=== PATIENT | female | born 1960 | race Caucasian/White ===

== ENCOUNTER 2016-08-31 14:42 | Emergency (ER) | payer BC ==
[~2016-08-31] VITALS: Ht 162.6 cm; Wt 74.2 kg
[~2016-08-31 14:42] MED LIST: ALBU1AER9 INH; CALCTAB5 PO; CPR500 PO; CYAN1DRO IM; CYT100 PO; MULT1PAK42 PO; PANT40TA PO; SUCR1TAB29 PO
[2016-08-31 14:56] VITALS: TEMP 37; Ht 162.6 cm; Wt 74.2 kg
[2016-08-31] MEDS ORDERED: MoRPHine SULFATE 4 MG/ML 1 ML CARP\\VIAL IV STA ×2 (16:05→18:33)
[2016-08-31] MEDS ORDERED: SODIUM CHLORIDE 0.9% 1000ML 1,000 ML IV STA (16:05)
[2016-08-31] MEDS ORDERED: ONDANSETRON INJ 2 MG/ML 2 ML VIAL IV STA (16:05)
[2016-08-31] MEDS ORDERED: CYAN100074 IM (16:31)
[2016-08-31 16:49] LABS: BASO % 0.3 %; BASO ABS # 0.02 K/uL (0-0.2); COMPLETE YES; EOS % 1.3 %; HEMATOCRIT 40.1 % (37-47); LYMPH % 21.2 %; LYMPH ABS # 1.29 K/uL (1.2-3.4); MEAN CORPUSCULAR HEMOGLOBIN 32.5 pg (25-34); MEAN CORPUSCULAR HGB CONC 34.9 g/dl (32-36); MEAN PLATELET VOLUME 10.3 fL (7.4-10.4); MONO % 8.2 %; PLATELET COUNT 194 K/uL (130-400); RED BLOOD COUNT 4.31 M/uL (4.2-5.4); WHITE BLOOD COUNT 6.08 K/uL (4.8-10.8)
[2016-08-31 16:51] LABS: URINE APPEARANCE CLEAR (CLEAR); URINE BILIRUBIN NEG (NEG); URINE COLOR YELLOW; URINE NITRITE NEG (NEG); URINE PH 6.5 (4.5-7.5); UROBILINOGEN NEG (NEG)
[2016-08-31 16:52] LABS: MANUAL MICROSCOPIC REQUIRED? NO; REVIEW REQ? NO
[2016-08-31 17:07] LABS: BUN/CREATININE RATIO 28.7 (10-20); CALCIUM 9.3 mg/dl (8.5-10.1); CREATININE 0.77 mg/dl (0.60-1.20); POTASSIUM 4.2 mmol/L (3.5-5.1)
--- NOTE | 2016-08-31 17:58 | DIAGNOSTIC IMAGING REPORT ---
CHEST AND ABDOMEN 2 VIEWS HISTORY: Generalized abdominal pain. Cough. COMPARISON: Chest and abdominal series 03/23/2016. FINDINGS: Questionable densities within the right midlung zone and bilateral lung bases is likely due to overlapping soft tissue. Otherwise, the lungs are clear. The heart is normal in size. Emphysema. No pleural effusions. No pneumothorax. Evidence for prior gastric bypass. No renal calculi. Moderate well-formed stool within the colon and rectum. No dilated loops of small bowel to suggest an obstruction. No pneumoperitoneum. No pneumatosis. IMPRESSION: 1. No acute process within the chest. 2. Moderate well-formed stool seen within the colon. 3. No evidence for bowel obstruction. Electronically signed by: Luis Stearns M.D. 08/31/2016 5:56 PM Dictated Date/Time: 08/31/2016 5:54 PM
--- NOTE | 2016-08-31 18:02 | DIAGNOSTIC IMAGING REPORT ---
ABDOMINAL ULTRASOUND, RIGHT UPPER QUADRANT HISTORY: Generalized abdominal pain.. COMPARISON: Abdominal ultrasound 03/23/2016. FINDINGS: Pancreas: The pancreas demonstrates a normal echotexture. Liver: Unremarkable. Gallbladder: No gallbladder wall thickening. No gallstones. CBD: Measures between 6 and 7 mm. Right kidney: No hydronephrosis. IMPRESSION: 1. Normal gallbladder. No gallstones. 2. Borderline distended common bile duct measuring between 6 and 7 mm. Recommend correlate with LFTs. Electronically signed by: Luis Stearns M.D. 08/31/2016 6:00 PM Dictated Date/Time: 08/31/2016 5:57 PM
[2016-08-31] MEDS ORDERED: DICYCLOMINE HCL 10 MG/ML 2 ML AMP IM ONE (18:45)
[2016-08-31] MEDS ORDERED: OPTIRAY 320 IV PRN (18:45)
--- NOTE | 2016-08-31 19:31 | DIAGNOSTIC IMAGING REPORT ---
ABDOMEN AND PELVIS CT WITH IV CONTRAST CT DOSE: 533.29 mGycm HISTORY: Generalized abdominal pain. TECHNIQUE: Multiaxial CT images of the abdomen and pelvis were performed following the use of intravenous contrast. COMPARISON STUDY: Abdomen and pelvis CT 09/12/2015. FINDINGS: The lung bases are clear. No pneumoperitoneum. No pneumatosis. There are few scattered subcentimeter hypodense lesions within the liver. The largest in the left hepatic lobe measures 5 mm. These are too small to characterize but likely represent benign lesions given the stability. Normal caliber common bile duct measuring 6 mm. The gallbladder, right adrenal gland, pancreas, and kidneys are unremarkable. No hydronephrosis. Stable 9 mm lesion within the spleen. This is also too small to characterize but is likely benign. No change in the 2.8 cm heterogeneous left adrenal gland nodule. No retroperitoneal lymphadenopathy. The bladder remains mildly distended. Trace pelvic free fluid. Prior hysterectomy. A few colonic diverticula. Moderate stool throughout the colon. No bowel wall thickening or obstruction. Prior gastric bypass. Normal appendix. IMPRESSION: 1. No definite bowel wall thickening or obstruction. 2. Normal appendix. 3. Colonic diverticulosis. 4. Normal caliber common bile duct measures 6 mm. 5. Stable 2.8 cm left adrenal gland nodule. 6. Prior gastric bypass. Electronically signed by: Luis Stearns M.D. 08/31/2016 7:29 PM Dictated Date/Time: 08/31/2016 7:20 PM
[2016-08-31] MEDS ORDERED: OXYC1TAB3 PO (19:40)
[2016-08-31] MEDS ORDERED: DICY20TA35 PO (19:40)
--- NOTE | 2016-08-31 19:56 | EMERGENCY ROOM VISIT NOTE ---
History First contact with patient: 16:00 Chief Complaint: ABDOMINAL PAIN Stated Complaint: ABD PAIN Nursing Triage Summary: Pt c/o mid upper and lower abd pain, denies n/v/d. Pt associated "floaters" in right eye since yesterday morning. Diarrhea yesterday or the day before. History of Present Illness The patient is a 56 year old female who presents to the Emergency Room with complaints of abdominal pain and sensation of "trapped air". The patient reports that her symptoms started this morning upon awakening, and has progressively worsened throughout the day. She has had no nausea or vomiting, fever or chills, chest pain, shortness of breath or constipation. The patient reports that she did have some diarrhea 2 days ago after eating a chipotle, but had no belly pain at that time. She has had a productive cough, which the patient reports is not unusual given her "history of prior tobacco abuse". The patient reports mild discomfort radiating into the back this afternoon. Walking and deep breathing worsens her abdominal pain. The patient reports that she was admitted last summer for pancreatitis, and had an ultrasound showing a dysfunctional gallbladder. 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 The patient also reports that she has floaters in her right eye since yesterday morning. She denies any blurred vision or headache. She has had floaters in the past. She currently rates her discomfort a 7 out of 10. Review of Systems HEENT: Denies dizziness, hearing loss, tinnitus. Denies difficulty swallowing or oral lesions. PULMONARY: Reports mild productive cough, but denies shortness of breath or hemoptysis. CARDIOVASCULAR: Denies chest pain, palpitations, dyspnea on exertion, orthopnea or peripheral edema. GASTROINTESTINAL: Denies diarrhea, constipation, nausea or vomiting, otherwise see history of present illness. GENITOURINARY: Denies dysuria, frequency, urgency or nocturia. NEUROLOGIC: Denies history of epilepsy, CVA, TIA or chronic headaches. MUSCULOSKELETAL: Denies history of joint tenderness/swelling. SKIN: Denies rashes or lesions. PSYCHIATRIC: Denies history of depression or mental illness. ENDOCRINE: Denies history of diabetes or thyroid disorders. Past Medical/Surgical History Medical Problems: (1) History of - hysterectomy (2) Pancreatitis (3) UTI (urinary tract infection) Family History Hypertension Social History Smoking Status: Former Smoker Alcohol Use: none Drug Use: none Marital Status: single Housing Status: lives alone Occupation Status: employed Current/Historical Medications Scheduled Calcium (Caltrate), 1,200 MG PO QAM Cyanocobalamin (Cyanocobalamin), 1,000 MCG IM MONTHLY Dicyclomine Hcl (Bentyl), 1 TAB PO TID Pediatric Multiple Vitamin W/ (Flintstones Chewable), 2 TABS PO QPM Scheduled PRN Albuterol (Proair Hfa), 1-2 PUFFS INH QID PRN for Shortness of Breath Oxycodone Ir (Roxicodone Ir), 1-2 TAB PO Q4H PRN for Pain Tramadol (Ultram), 50-100 MG PO BID PRN for Pain Allergies Coded Allergies: Gabapentin (Verified Allergy, Unknown, VISUAL DISTURBANCES, 03/23/16) Adhesives (Verified Adverse Reaction, Unknown, RASH, 03/23/16) Physical Exam Vital Signs Date Time Temp Pulse Resp B/P Pulse Ox O2 Delivery O2 Flow Rate FiO2 08/31/16 19:16 74 16 126/74 96 08/31/16 18:30 74 16 124/80 97 08/31/16 16:46 48 08/31/16 14:56 37.0 58 17 98 Room Air Physical Exam CONSTITUTIONAL: Healthy and well nourished. Alert and oriented X 3 with positive affect. Patient does not appear in any acute distress. HEENT: Normocephalic, atraumatic. Pupils equal, round and reactive. No scleral icterus or conjunctival injection. EOMs intact without discomfort. Ears and nares are clear. NECK: Full active range of motion without discomfort. No JVD or carotid bruits. RESPIRATORY: Clear to auscultation bilaterally with no wheezing, crackles, rhonchi or stridor. CARDIOVASCULAR: Regular rate and rhythm with no murmurs, rubs or gallops. GASTROINTESTINAL: Bowel sounds present in all quadrants. Patient has mild diffuse abdominal tenderness to palpation without rigidity, guarding or rebound. Negative White sign. Negative CVA tenderness. Negative McBurney's point tenderness. No rigidity, guarding or rebound. MUSCULOSKELETAL: Full range of motion of all joints without discomfort. INTEGUMENTARY: No rash or other significant dermatologic conditions noted. NEUROLOGIC: No focal neurologic deficits noted. Medical Decision & Procedures ER Provider Diagnostic Interpretation: My interpretation of an ECG shows a sinus bradycardia of [address] elevation or other conduction abnormalities. The patient reports a normally low resting heart rate. My interpretation of an abdomen obstruction series with PA chest does not show any obstructive pattern or free air. Moderate stool load is noted. Radiologist report is as follows: CHEST AND ABDOMEN 2 VIEWS HISTORY: Generalized abdominal pain. Cough. COMPARISON: Chest and abdominal series 03/23/2016. FINDINGS: Questionable densities within the right midlung zone and bilateral lung bases is likely due to overlapping soft tissue. Otherwise, the lungs are clear. The heart is normal in size. Emphysema. No pleural effusions. No pneumothorax. Evidence for prior gastric bypass. No renal calculi. Moderate well-formed stool within the colon and rectum. No dilated loops of small bowel to suggest an obstruction. No pneumoperitoneum. No pneumatosis. IMPRESSION: 1. No acute process within the chest. 2. Moderate well-formed stool seen within the colon. 3. No evidence for bowel obstruction. Abdominal ultrasound does not show any gallstones, evidence for pancreatitis or other acute findings. ABDOMINAL ULTRASOUND, RIGHT UPPER QUADRANT HISTORY: Generalized abdominal pain.. COMPARISON: Abdominal ultrasound 03/23/2016. FINDINGS: Pancreas: The pancreas demonstrates a normal echotexture. Liver: Unremarkable. Gallbladder: No gallbladder wall thickening. No gallstones. CBD: Measures between 6 and 7 mm. Right kidney: No hydronephrosis. IMPRESSION: 1. Normal gallbladder. No gallstones. 2. Borderline distended common bile duct measuring between 6 and 7 mm. Recommend correlate with LFTs. CT of the abdomen and pelvis with IV contrast was also normal with the following incidental findings: ABDOMEN AND PELVIS CT WITH IV CONTRAST CT DOSE: 533.29 mGycm HISTORY: Generalized abdominal pain. TECHNIQUE: Multiaxial CT images of the abdomen and pelvis were performed following the use of intravenous contrast. COMPARISON STUDY: Abdomen and pelvis CT 09/12/2015. FINDINGS: The lung bases are clear. No pneumoperitoneum. No pneumatosis. There are few scattered subcentimeter hypodense lesions within the liver. The largest in the left hepatic lobe measures 5 mm. These are too small to characterize but likely represent benign lesions given the stability. Normal caliber common bile duct measuring 6 mm. The gallbladder, right adrenal gland, pancreas, and kidneys are unremarkable. No hydronephrosis. Stable 9 mm lesion within the spleen. This is also too small to characterize but is likely benign. No change in the 2.8 cm heterogeneous left adrenal gland nodule. No retroperitoneal lymphadenopathy. The bladder remains mildly distended. Trace pelvic free fluid. Prior hysterectomy. A few colonic diverticula. Moderate stool throughout the colon. No bowel wall thickening or obstruction. Prior gastric bypass. Normal appendix. IMPRESSION: 1. No definite bowel wall thickening or obstruction. 2. Normal appendix. 3. Colonic diverticulosis. 4. Normal caliber common bile duct measures 6 mm. 5. Stable 2.8 cm left adrenal gland nodule. 6. Prior gastric bypass. Laboratory Results 08/31/16 16:20 Red Blood Count 4.31, Mean Corpuscular Volume 93.0, Mean Corpuscular Hemoglobin 32.5, Mean Corpuscular Hemoglobin Concent 34.9, Mean Platelet Volume 10.3, Neutrophils (%) (Auto) 69.0, Lymphocytes (%) (Auto) 21.2, Monocytes (%) (Auto) 8.2, Eosinophils (%) (Auto) 1.3, Basophils (%) (Auto) 0.3, Neutrophils # (Auto) 4.19, Lymphocytes # (Auto) 1.29, Monocytes # (Auto) 0.50, Eosinophils # (Auto) 0.08, Basophils # (Auto) 0.02 08/31/16 16:20 Test 08/31/16 16:20 White Blood Count 6.08 K/uL (4.8-10.8) Red Blood Count 4.31 M/uL (4.2-5.4) Hemoglobin 14.0 g/dL (12.0-16.0) Hematocrit 40.1 % (37-47) Mean Corpuscular Volume 93.0 fL (80-100) Mean Corpuscular Hemoglobin 32.5 pg (25-34) Mean Corpuscular Hemoglobin Concent 34.9 g/dl (32-36) Platelet Count 194 K/uL (130-400) Mean Platelet Volume 10.3 fL (7.4-10.4) Neutrophils (%) (Auto) 69.0 % Lymphocytes (%) (Auto) 21.2 % Monocytes (%) (Auto) 8.2 % Eosinophils (%) (Auto) 1.3 % Basophils (%) (Auto) 0.3 % Neutrophils # (Auto) 4.19 K/uL (1.4-6.5) Lymphocytes # (Auto) 1.29 K/uL (1.2-3.4) Monocytes # (Auto) 0.50 K/uL (0.11-0.59) Eosinophils # (Auto) 0.08 K/uL (0-0.5) Basophils # (Auto) 0.02 K/uL (0-0.2) RDW Standard Deviation 43.3 fL (36.4-46.3) RDW Coefficient of Variation 12.7 % (11.5-14.5) Immature Granulocyte % (Auto) 0.0 % Immature Granulocyte # (Auto) 0.00 K/uL (0.00-0.02) Urine Color YELLOW Urine Appearance CLEAR (CLEAR) Urine pH 6.5 (4.5-7.5) Urine Specific [place] 1.010 (1.000-1.030) Urine Protein NEG (NEG) Urine Glucose (UA) NEG (NEG) Urine Ketones NEG (NEG) Urine Occult Blood NEG (NEG) Urine Nitrite NEG (NEG) Urine Bilirubin NEG (NEG) Urine Urobilinogen NEG (NEG) Urine Leukocyte Esterase NEG (NEG) Anion Gap 9.0 mmol/L (3-11) Est Creatinine Clear Calc Drug Dose 80.5 ml/min Estimated GFR () 100.0 Estimated GFR (Non- 86.3 BUN/Creatinine Ratio 28.7 (10-20) Calcium Level 9.3 mg/dl (8.5-10.1) Total Bilirubin 0.5 mg/dl (0.2-1) Direct Bilirubin 0.2 mg/dl (0-0.2) Aspartate Amino Transf (AST/SGOT) 25 U/L (15-37) Alanine Aminotransferase (ALT/SGPT) 33 U/L (12-78) Alkaline Phosphatase 100 U/L (45-117) Total Creatine Kinase 54 U/L (26-192) Total Protein 7.0 gm/dl (6.4-8.2) Albumin 3.9 gm/dl (3.4-5.0) Amylase Level 57 U/L (25-115) Lipase 85 U/L (73-393) Medications Administered Medications (Trade) Dose Ordered Sig/Samira Route Start Time Stop Time Status Last Admin Dose Admin Sodium Chloride (Nss 1000ml) 1,000 ml @ 999 mls/hr Q1H1M STAT IV 08/31/16 16:05 08/31/16 17:05 DC 08/31/16 16:39 999 MLS/HR Morphine Sulfate (MoRPHine SULFATE INJ) 4 mg NOW STAT IV 08/31/16 16:05 08/31/16 16:20 DC 08/31/16 16:40 4 MG Ondansetron HCl (Zofran Inj) 4 mg NOW STAT IV 08/31/16 16:05 08/31/16 16:20 DC 08/31/16 16:39 4 MG Morphine Sulfate (MoRPHine SULFATE INJ) 4 mg NOW STAT IV 08/31/16 18:33 08/31/16 18:34 DC 08/31/16 18:50 4 MG Dicyclomine HCl (Bentyl Inj) 20 mg NOW ONCE IM 08/31/16 18:45 08/31/16 18:46 DC 08/31/16 18:50 20 MG Procedure 1. IV hydration: The patient received a liter normal saline bolus 2. IV medications: Morphine 4 mg and Zofran 4 mg IVP. She received an additional morphine 4 mg IVP and Bentyl 20 mg IM. ED Course Patient history and physical exam were performed. Nurse's notes were reviewed. Vital signs were reviewed and were normal. IV access was established, and labs were drawn. The patient was hydrated with normal saline, and received IV medications as discussed in the previous Procedure section. Review of labs does not show any acute findings. ECG was normal. Abdomen obstruction series with PA chest was normal. Abdominal ultrasound was also normal without any acute findings. The patient was still having notable discomfort, and was administered additional IV morphine and IM Bentyl. At this point, the case was further discussed with Dr. Burns, ED attending physician, who suggested performing a CT to rule out other acute findings. The patient has had a prior history of gastric bypass, and reports that she does not tolerate oral prep well. At this point, a CT of the abdomen and pelvis with IV contrast was performed, again with no significant findings except as discussed in the previous Diagnostic Interpretation section. The patient reports feeling well enough to go home at this point. The patient was instructed on a clear liquid diet bowel rest for now. She was encouraged to try Dulcolax, MiraLAX or magnesium citrate for possible constipation. She was instructed to follow-up with her PCP in the next 2-3 days for reevaluation. Return to the emergency department for any progressively worsening symptoms. The patient was provided prescriptions for OxyIR and Bentyl as well. The patient was encouraged to minimize OxyIR use as this may constipate her even more. The patient was happy with plan of care, voiced understanding of all discharge instructions, and rated her discomfort a 3 out of 10. Medical Decision Patient presents to the emergency room with generalized abdominal cramping sensation since awakening this morning. Her workup today is not suggestive of pancreatitis, cholecystitis, hepatitis, bowel obstruction, appendicitis, diverticulitis, pyelonephritis, TIA or diverticulitis. The patient is afebrile and has no leukocytosis. She does have moderate stool on imaging studies. I do not suspect complications with her gastric bypass. She does not have any peritoneal signs. Impression Primary Impression: Abdominal pain Departure Information Prescriptions Dicyclomine Hcl (BENTYL) 20 Mg Tab 1 TAB PO TID for 30 Days, #90 TAB Prov: Ulises Gallagher PA 08/31/16 Oxycodone Ir (Roxicodone Ir) 5 Mg Tab 1-2 TAB PO Q4H Y for Pain, #15 TAB For Initial Treatment Prov: Ulises Gallagher PA 08/31/16 Referrals RV. Grullon MD (PCP) Patient Instructions A Signature Page
[2016-08-31 20:14] VITALS: BP 98/65; PULSE 56; O2SAT 95
[2017-04-13] MEDS ORDERED: PEDICHW50 PO (00:38)
== END 2016-08-31 20:16 | disposition home or self-care (01) ==
LOC: C.EDB 14:43
DX: R10.9 Unspecified abdominal pain (principal); Z82.49 Family history of ischemic heart disease and other diseases of the circulatory system; Z87.891 Personal history of nicotine dependence; Z79.899 Other long term (current) drug therapy

== ENCOUNTER → 2016-12-07 | Outpatient (CLI) | payer BC ==
[~2016-12-07] MED LIST changes: +CALC600T PO; +CEPH500C PO; -CPR500 PO; -CYAN1DRO IM; +CYNI1000 IM; -CYT100 PO; -MULT1PAK42 PO; +OXYC1TAB3 PO; -PANT40TA PO; +PEDICHW50 PO; +POLY335019 PO; +PRED10TA PO; -SUCR1TAB29 PO; +TRAM-10 PO; +VNTHFA/IN INH
--- NOTE | 2016-12-07 15:07 | DIAGNOSTIC IMAGING REPORT ---
RIBS UNILATERAL WITH PA CHEST CLINICAL HISTORY: RIB PAIN ON LEFT SIDE COMPARISON STUDY: Chest 08/31/2016. FINDINGS: No rib fractures. No pneumothorax. The lungs are clear. The heart is normal in size. No pleural effusions. IMPRESSION: No rib fractures. No pneumothorax. Electronically signed by: Luis Stearns M.D. 12/07/2016 3:05 PM Dictated Date/Time: 12/07/2016 3:01 PM
== END | disposition home or self-care (01) ==
LOC: C.RAD1850 14:36
PROVIDERS: ATTEND Internal Medicine
DX: R07.81 Pleurodynia (principal)

== ENCOUNTER 2016-12-23 14:20 | Emergency (ER) | payer BC ==
[~2016-12-23] VITALS: Ht 162.6 cm; Wt 74.8 kg
[~2016-12-23 14:20] MED LIST changes: -CALC600T PO; -CEPH500C PO; -CYNI1000 IM; -PEDICHW50 PO; -POLY335019 PO; -PRED10TA PO; -TRAM-10 PO; -VNTHFA/IN INH
[2016-12-23 14:27] VITALS: TEMP 36.6; Ht 162.6 cm; Wt 74.8 kg
[2016-12-23] MEDS ORDERED: PRED10TA PO (14:43)
[2016-12-23] MEDS ORDERED: ONDANSETRON INJ 2 MG/ML 2 ML VIAL IV STA (14:57)
[2016-12-23] MEDS ORDERED: SODIUM CHLORIDE 0.9% 1000ML 1,000 ML IV STA (14:57)
[2016-12-23] MEDS ORDERED: MoRPHine SULFATE 4 MG/ML 1 ML CARP\\VIAL IV PRN (15:00)
--- NOTE | 2016-12-23 15:02 | EMERGENCY ROOM VISIT NOTE ---
History Report prepared by Latesha: Sidra Trevino Under the Supervision of: Dr. Constantino Mejia D.O. First contact with patient: 14:34 Chief Complaint: ABDOMINAL PAIN Stated Complaint: STOMACH PAINS Nursing Triage Summary: Pt reports mid abdominal pain sinc 1100. Hx of constipation, gall stones History of Present Illness The patient is a 56 year old female who presents to the Emergency Room with complaints of persistent mid-abdominal pain that started around 1100 today. She rates her discomfort as a 7/10 and describes it as feeling like "sharp gas pains ". Food does not seem to worsen her pain. She tried going to work today, but had to leave to come to the ED when her pain worsened. She reports she has been to the ED previously for similar pain and states the last time she was here she was found to have a "blockage". She notes she is still passing stool normally and had a normal bowel movement here in the ED. The patient denies any recent nausea, vomiting or diarrhea. She denies any recent urinary symptoms. She denies any recent rectal bleeding, melena or hematochezia. Source of History: patient Onset: 1100 today Position: abdomen Symptom Intensity: 7/10 Quality: sharp ("sharp gas pains") Associated Symptoms: No diarrhea, No hematochezia, No melena, No nausea, No urinary symptoms, No vomiting Review of Systems See HPI for pertinent positives & negatives. A total of 10 systems reviewed and were otherwise negative. Past Medical & Surgical Medical Problems: (1) History of - hysterectomy (2) Pancreatitis (3) UTI (urinary tract infection) Family History Hypertension Social History Smoking Status: Never Smoker Alcohol Use: none Drug Use: none Marital Status: Housing Status: lives alone Occupation Status: employed Current/Historical Medications Scheduled Albuterol Hfa (Ventolin Hfa), 1-2 PUFFS INH QID Calcium Carbonate (Calcium 600), 1,200 MG PO DAILY Cyanocobalamin (Cyanocobalamin), 1,000 MCG IM MONTHLY Pediatric Multiple Vitamin W/ (Flintstones Chewable), 2 TABS PO QPM Polyethylene Glycol 3350 (Miralax), 17 GM PO DAILY Prednisone Tab (Prednisone), 10 MG PO DAILY Scheduled PRN Tramadol (Ultram), 50-100 MG PO BID PRN for Pain Tramadol (Ultram), 1-2 TABS PO Q8 PRN for Pain Allergies Coded Allergies: Gabapentin (Verified Allergy, Unknown, VISUAL DISTURBANCES, 12/23/16) Adhesives (Verified Adverse Reaction, Unknown, RASH, 12/23/16) Physical Exam Vital Signs Date Time Temp Pulse Resp B/P Pulse Ox O2 Delivery O2 Flow Rate FiO2 12/23/16 17:55 61 16 105/81 96 12/23/16 16:39 57 18 111/61 97 Room Air 12/23/16 15:29 58 16 145/77 98 Room Air 12/23/16 15:26 57 12/23/16 14:27 36.6 59 18 166/82 96 Room Air Physical Exam GENERAL: Patient is awake, alert, somewhat anxious and uncomfortable appearing. EYES: The conjunctivae are clear. The pupils are round and reactive. EARS, NOSE, MOUTH AND THROAT: The nose is without any evidence of any deformity. Mucous membranes are moist tongue is midline NECK: The neck is nontender and supple. RESPIRATORY: Normal respiratory effort is noted there is no evidence of wheezing rhonchi or rales CARDIOVASCULAR: Regular rate and rhythm noted there no murmurs rubs or gallops normal S1 normal S2 GASTROINTESTINAL: The abdomen is mildly distended but soft. Diffuse tenderness to palpation, but no guarding or rigidity was appreciated. BACK: No midline tenderness or or step-off noted range of motion in flexion extension as well as rotation no signs of muscle spasm noted MUSCULOSKELETAL/EXTREMITIES: There is no evidence of gross deformity full range of motion is noted in the hips and shoulders SKIN: There is no obvious evidence of any rash. There are no petechiae, pallor or cyanosis noted. NEUROLOGIC: Patient is awake alert and oriented x3 strength is symmetric patellar reflexes are 2+ bilaterally Medical Decision & Procedures ER Provider Diagnostic Interpretation: This X-Ray was reviewed and interpreted by myself and the radiologist. PA CHEST WITH ABDOMINAL SERIES IMPRESSION: 1. Emphysema with no acute cardiopulmonary abnormality. 2. Nonobstructed abdominal bowel gas pattern noting moderate constipation. Electronically signed by: Igor Booker M.D. 12/23/2016 4:16 PM Laboratory Results 12/23/16 15:15 Red Blood Count 4.19, Mean Corpuscular Volume 95.7, Mean Corpuscular Hemoglobin 32.0, Mean Corpuscular Hemoglobin Concent 33.4, Mean Platelet Volume 10.0, Neutrophils (%) (Auto) 87.1, Lymphocytes (%) (Auto) 8.5, Monocytes (%) (Auto) 3.5, Eosinophils (%) (Auto) 0.7, Basophils (%) (Auto) 0.1, Neutrophils # (Auto) 6.26, Lymphocytes # (Auto) 0.61, Monocytes # (Auto) 0.25, Eosinophils # (Auto) 0.05, Basophils # (Auto) 0.01 12/23/16 15:15 Test 12/23/16 15:15 12/23/16 15:21 12/23/16 15:30 White Blood Count 7.19 K/uL (4.8-10.8) Red Blood Count 4.19 M/uL (4.2-5.4) Hemoglobin 13.4 g/dL (12.0-16.0) Hematocrit 40.1 % (37-47) Mean Corpuscular Volume 95.7 fL (80-100) Mean Corpuscular Hemoglobin 32.0 pg (25-34) Mean Corpuscular Hemoglobin Concent 33.4 g/dl (32-36) Platelet Count 202 K/uL (130-400) Mean Platelet Volume 10.0 fL (7.4-10.4) Neutrophils (%) (Auto) 87.1 % Lymphocytes (%) (Auto) 8.5 % Monocytes (%) (Auto) 3.5 % Eosinophils (%) (Auto) 0.7 % Basophils (%) (Auto) 0.1 % Neutrophils # (Auto) 6.26 K/uL (1.4-6.5) Lymphocytes # (Auto) 0.61 K/uL (1.2-3.4) Monocytes # (Auto) 0.25 K/uL (0.11-0.59) Eosinophils # (Auto) 0.05 K/uL (0-0.5) Basophils # (Auto) 0.01 K/uL (0-0.2) RDW Standard Deviation 46.9 fL (36.4-46.3) RDW Coefficient of Variation 13.5 % (11.5-14.5) Immature Granulocyte % (Auto) 0.1 % Immature Granulocyte # (Auto) 0.01 K/uL (0.00-0.02) Prothrombin Time 10.1 SECONDS (9.0-12.0) Prothromb Time International Ratio 0.9 (0.9-1.1) Activated Partial Thromboplast Time 27.5 SECONDS (21.0-31.0) Partial Thromboplastin Ratio 1.1 Anion Gap 5.0 mmol/L (3-11) Est Creatinine Clear Calc Drug Dose 102.0 ml/min Estimated GFR () 117.5 Estimated GFR (Non- 101.3 BUN/Creatinine Ratio 31.1 (10-20) Calcium Level 8.5 mg/dl (8.5-10.1) Total Bilirubin 0.4 mg/dl (0.2-1) Direct Bilirubin 0.2 mg/dl (0-0.2) Aspartate Amino Transf (AST/SGOT) 19 U/L (15-37) Alanine Aminotransferase (ALT/SGPT) 40 U/L (12-78) Alkaline Phosphatase 97 U/L (45-117) Troponin I < 0.015 ng/ml (0-0.045) Total Protein 6.7 gm/dl (6.4-8.2) Albumin 3.6 gm/dl (3.4-5.0) Lipase 107 U/L (73-393) Bedside Lactic Acid Venous 0.57 mmol/L (0.90-1.70) Urine Color YELLOW Urine Appearance CLEAR (CLEAR) Urine pH 6.5 (4.5-7.5) Urine Specific Dunning 1.024 (1.000-1.030) Urine Protein NEG (NEG) Urine Glucose (UA) NEG (NEG) Urine Ketones NEG (NEG) Urine Occult Blood NEG (NEG) Urine Nitrite NEG (NEG) Urine Bilirubin NEG (NEG) Urine Urobilinogen NEG (NEG) Urine Leukocyte Esterase NEG (NEG) Laboratory results per my review. Medications Administered Medications (Trade) Dose Ordered Sig/Samira Route Start Time Stop Time Status Last Admin Dose Admin Sodium Chloride (Nss 1000ml) 1,000 ml @ 999 mls/hr Q1H1M STAT IV 12/23/16 14:57 12/23/16 15:57 DC 12/23/16 15:27 999 MLS/HR Morphine Sulfate (MoRPHine SULFATE INJ) 4 mg Q15M PRN IV 12/23/16 15:00 01/06/17 14:59 12/23/16 15:28 4 MG Ondansetron HCl (Zofran Inj) 4 mg NOW STAT IV 12/23/16 14:57 12/23/16 14:59 DC 12/23/16 15:27 4 MG ED Course 1441: The patient was evaluated in room B10. A complete history and physical examination were performed. 1457: Zofran 4 mg IV, NSS 1000 ml @ 999 mls/hr IV. 1500: Morphine Sulfate 4 mg IV. 1720: I reevaluated the patient. She is feeling well. I discussed her results and discharge instructions and she verbalized complete understanding and agreement. Medical Decision Prior records/ancillary studies reviewed. Triage Nursing notes reviewed. The patient's history was concerning for abdominal pain. Differential diagnosis: Etiologies such as appendicitis, diverticulitis, PUD, biliary pathology, UTI, pancreatitis, obstruction, mesenteric ischemia, aortic pathology, infections, inflammatory bowel disease, renal colic, as well as others were entertained. The patient is a 56-year-old female who presented to the emergency department for an evaluation of abdominal pain. The patient has been seen in our facility multiple times for similar complaints. She does have a history of gastric bypass. Her physical exam did not appear to be consistent with an acute surgical abdomen. I discussed the patient's laboratory and radiographic studies with her. She was treated with IV fluids IV pain medicine IV antiemetics. The patient was encouraged to rest and avoid any strenuous activity. She was also encouraged to continue all medications as prescribed and follow-up with primary care physician tomorrow for further evaluation. She was also encouraged to try a fleets enema. He was also encouraged to discuss possibility that she may require further studies or possibly a referral to a international banker or general surgeon. Otherwise she was encouraged to return the emergency Department immediately if symptoms change worsen or the need arises. Impression Primary Impression: Lower abdominal pain Additional Impression: Constipation Scribe Attestation The scribe's documentation has been prepared under my direction and personally reviewed by me in its entirety. I confirm that the note above accurately reflects all work, treatment, procedures, and medical decision making performed by me. Departure Information Dispostion Home / Self-Care Prescriptions Tramadol (Ultram) 50 Mg Tab 1-2 TABS PO Q8 Y for Pain, #20 TAB Prov: Constantino Mejia, DO 12/23/16 Polyethylene Glycol 3350 (MIRALAX) 1 Pow Pow 17 GM PO DAILY, #527 GM Prov: Constantino Mejia, DO 12/23/16 Referrals RV. Grullon MD (PCP) Patient Instructions Abdominal Pain, Constipation, My [facility] Additional Instructions Continue all medications as prescribed. Drink plenty clear liquids. Follow-up with your family this week for reevaluation. Problem Qualifiers Additional Impression: Constipation Constipation type: unspecified constipation type Qualified Codes: K59.00 - Constipation, unspecified
[2016-12-23 15:31] LABS: BASO % 0.1 %; BASO ABS # 0.01 K/uL (0-0.2); COMPLETE YES; EOS % 0.7 %; HEMATOCRIT 40.1 % (37-47); IG% 0.1 %; LYMPH % 8.5 %; LYMPH ABS # 0.61 K/uL (1.2-3.4); MEAN CELL VOLUME 95.7 fL (80-100); MEAN CORPUSCULAR HGB CONC 33.4 g/dl (32-36); MONO % 3.5 %; NEUT % 87.1 %; PLATELET COUNT 202 K/uL (130-400); RED BLOOD COUNT 4.19 M/uL (4.2-5.4); WHITE BLOOD COUNT 7.19 K/uL (4.8-10.8)
[2016-12-23 15:49] LABS: ALT/SGPT 40 U/L (12-78); AST/SGOT 19 U/L (15-37); BLOOD UREA NITROGEN 19 mg/dl (7-18); BUN/CREATININE RATIO 31.1 (10-20); CALCIUM 8.5 mg/dl (8.5-10.1); CARBON DIOXIDE 30 mmol/L (21-32); CHLORIDE 110 mmol/L (98-107); CREATININE 0.61 mg/dl (0.60-1.20); GLUCOSE 98 mg/dl (70-99); INR 0.9 (0.9-1.1); PARTIAL THROMBOPLASTIN RATIO 1.1; POTASSIUM 4.2 mmol/L (3.5-5.1); PROTHROMBIN TIME (PATIENT) 10.1 SECONDS (9.0-12.0); SODIUM 145 mmol/L (136-145)
[2016-12-23 15:54] LABS: ALKALINE PHOSPHATASE 97 U/L (45-117)
[2016-12-23 15:55] LABS: URINE APPEARANCE CLEAR (CLEAR); URINE BILIRUBIN NEG (NEG); URINE COLOR YELLOW; URINE NITRITE NEG (NEG); URINE PH 6.5 (4.5-7.5); URINE SPECIFIC GRAVITY 1.024 (1.000-1.030); UROBILINOGEN NEG (NEG)
[2016-12-23 16:05] LABS: MANUAL MICROSCOPIC REQUIRED? NO; REVIEW REQ? NO
--- NOTE | 2016-12-23 16:17 | DIAGNOSTIC IMAGING REPORT ---
PA CHEST WITH ABDOMINAL SERIES CLINICAL HISTORY: Generalized abdominal pain. FINDINGS: A PA chest radiograph is compared to study dated 12/07/2016. Correlation is made with chest CT dated 09/15/2011. The cardiomediastinal silhouette is unremarkable. Emphysema is again noted. Chronic interstitial thickening is unchanged. There is no airspace consolidation, pleural effusion, or pneumothorax seen. The skeletal structures are osteopenic. The bony thorax is grossly intact. Supine and erect abdominal radiographs are correlated with abdominal CT dated 08/31/2016. There is a nonobstructed abdominal bowel gas pattern noting moderate colonic fecal retention. No evidence of intraperitoneal free air is seen. Suture material projects over the gastroesophageal junction. No abnormal abdominal calcifications are identified. There is mild lumbosacral spondylosis. The bony pelvis appears intact. IMPRESSION: 1. Emphysema with no acute cardiopulmonary abnormality. 2. Nonobstructed abdominal bowel gas pattern noting moderate constipation. Electronically signed by: Igor Booker M.D. 12/23/2016 4:16 PM Dictated Date/Time: 12/23/2016 4:13 PM
[2016-12-23] MEDS ORDERED: TRAM-10 PO (17:20)
[2016-12-23] MEDS ORDERED: POLY335019 PO (17:20)
[2016-12-23 17:55] VITALS: BP 105/81; PULSE 61; O2SAT 96
[2017-04-13] MEDS ORDERED: PEDICHW50 PO (00:38)
== END 2016-12-23 17:57 | disposition home or self-care (01) ==
LOC: C.EDB 14:21
DX: R10.30 Lower abdominal pain, unspecified (principal); K59.00 Constipation, unspecified; Z82.49 Family history of ischemic heart disease and other diseases of the circulatory system; J43.9 Emphysema, unspecified

== ENCOUNTER → 2017-02-25 | Outpatient (CLI) | payer BC ==
[~2017-02-25] MED LIST changes: -ALBU1AER9 INH; +CALC600T PO; -CALCTAB5 PO; +CEPH500C PO; +CYNI1000 IM; -OXYC1TAB3 PO; +PEDICHW50 PO; +POLY335019 PO; +PRED10TA PO; +TRAM-10 PO; +VNTHFA/IN INH
== END | disposition home or self-care (01) ==
LOC: C.RDSM 08:50
PROVIDERS: ATTEND Orthopaedic Surgery
DX: M18.12 Unilateral primary osteoarthritis of first carpometacarpal joint, left hand (principal)

== ENCOUNTER → 2017-04-05 | Outpatient (CLI) | payer OTHER, BC ==
--- NOTE | 2017-04-05 15:50 | DIAGNOSTIC IMAGING REPORT ---
LEFT KNEE 3 VIEWS HISTORY: L KNEE PAIN S/P FALL COMPARISON: None. FINDINGS: There is no fracture or dislocation. Small knee effusion. Mild tricompartmental osteoarthritis most pronounced within the medial compartment. Small tricompartmental marginal osteophytes. No radiopaque foreign bodies. IMPRESSION: Mild osteoarthritis within the left knee and a small left knee effusion. No fractures. Electronically signed by: Luis Stearns M.D. 04/05/2017 3:48 PM Dictated Date/Time: 04/05/2017 3:46 PM
== END | disposition home or self-care (01) ==
LOC: C.RAD1850 15:09
PROVIDERS: ATTEND Nurse Practitioner Adult Health
DX: M25.562 Pain in left knee (principal); W19.XXXA Unspecified fall, initial encounter

== ENCOUNTER 2017-04-13 09:59 | Emergency (ER) | payer OTHER, BC ==
[~2017-04-13] VITALS: Ht 162.6 cm; Wt 76.6 kg
[~2017-04-13 09:59] MED LIST changes: -CALC600T PO; -CEPH500C PO; -CYNI1000 IM; -VNTHFA/IN INH
[2017-04-13 10:07] VITALS: Ht 162.6 cm; Wt 76.6 kg
--- NOTE | 2017-04-13 12:38 | DIAGNOSTIC IMAGING REPORT ---
LEFT VENOUS DOPP LOWER EXT UNILAT CLINICAL HISTORY: 56 years-old Female presenting with swelling lle. TECHNIQUE: Real-time grayscale and color and spectral Doppler ultrasound imaging of the veins of the left lower extremity was performed. Compression and augmentation were also utilized. COMPARISON: None. FINDINGS: Left: Common femoral vein: Patent. Femoral vein: Patent. Greater saphenous vein: Patent. Popliteal vein: Patent. Calf veins: Limited visualization. Other: Benign-appearing left inguinal lymph node noted. Subjacent to this, a 1.9 x 1.3 x 1.7 cm predominantly cystic appearing avascular focus noted. This is in the region of the left inguinal canal. IMPRESSION: 1. No evidence of deep venous thrombosis. 2. Suspected fluid within a left inguinal hernia. Electronically signed by: Jorge L Mcmullen M.D. 04/13/2017 12:37 PM Dictated Date/Time: 04/13/2017 12:33 PM
[2017-04-13] MEDS ORDERED: CEPH500C PO (13:05)
[2017-04-13] MEDS ORDERED: CEPHALEXIN MONOHYDRATE 250 MG CAP PO ONE (13:15)
[2017-04-13 13:18] VITALS: BP 115/70; PULSE 62; TEMP 36.8; O2SAT 95
[2017-04-13] MEDS ORDERED: TRAM-10 PO (14:37)
[2017-04-13] MEDS ORDERED: VNTHFA/IN INH (14:47)
[2017-04-13] MEDS ORDERED: CALC600T PO (14:47)
[2017-04-13] MEDS ORDERED: CYNI1000 IM (16:34)
--- NOTE | 2017-04-13 17:14 | EMERGENCY ROOM VISIT NOTE ---
History Report prepared by Latesha: Og Olmstead Under the Supervision of: Dr. Ernesto Pearce D.O. First contact with patient: 11:20 Chief Complaint: LEG PAIN,LEG INJURY Stated Complaint: LEG PAIN AND RASH History of Present Illness The patient is a 56 year old female who presents to the Emergency Room with complaints of worsening left leg pain beginning one week ago. She states that her symptoms began after falling on pavement one week ago. She was found to have a hematoma at the time. The patient also complains of numbness, itching and swelling in her left leg. She did not hit her head or lose consciousness during her fall last week. Patient does not want a repeat x-rays that she had them redone yesterday. Source of History: patient Onset: One week ago Position: leg (left) Timing: worsening Associated Symptoms: + numbness (left leg), No LOC Note: Additional symptoms: left leg itching, left leg swelling. Review of Systems See HPI for pertinent positives & negatives. A total of 10 systems reviewed and were otherwise negative. Past Medical & Surgical Medical Problems: (1) History of - hysterectomy (2) Pancreatitis (3) UTI (urinary tract infection) Family History Hypertension Social History Smoking Status: Former Smoker Alcohol Use: none Drug Use: none Marital Status: Housing Status: lives alone Occupation Status: employed Current/Historical Medications Scheduled Albuterol Hfa (Ventolin Hfa), 1-2 PUFFS INH QID Calcium Carbonate (Calcium 600), 1,200 MG PO DAILY Cephalexin Monohydrate (Keflex), 500 MG PO TID Cyanocobalamin (Cyanocobalamin), 1,000 MCG IM MONTHLY Pediatric Multiple Vitamin W/ (Flintstones Chewable), 2 TABS PO QPM Polyethylene Glycol 3350 (Miralax), 17 GM PO DAILY Scheduled PRN Tramadol (Ultram), 50-100 MG PO BID PRN for Pain Allergies Coded Allergies: Gabapentin (Verified Allergy, Unknown, VISUAL DISTURBANCES, 04/13/17) Adhesives (Verified Adverse Reaction, Unknown, RASH, 04/13/17) Physical Exam Vital Signs Date Time Temp Pulse Resp B/P (MAP) Pulse Ox O2 Delivery O2 Flow Rate FiO2 04/13/17 13:18 36.8 62 18 115/70 95 04/13/17 10:07 36.8 56 18 132/76 98 Room Air Physical Exam GENERAL: alert, well appearing, well nourished, no distress, non-toxic EYE EXAM: normal conjunctiva OROPHARYNX: no exudate, no erythema, lips, buccal mucosa, and tongue normal and mucous membranes are moist NECK: supple, no nuchal rigidity, no adenopathy, non-tender LUNGS: Clear to auscultation. Normal chest wall mechanics HEART: no murmurs, S1 normal and S2 normal ABDOMEN: abdomen soft, non-tender, normo-active bowel sounds, no masses, no rebound or guarding. UPPER EXTREMITIES: upper extremities are grossly normal. LOWER EXTREMITIES: bruising on the mid anterior vogel with tenderness to palpation of the tibial plateau. DP 2/4. Full ROM of the left hip, knee, and ankle. Left calf is larger than the right. Erythema just superior to the right medial ankle, tracking cephalad to the right mid-vogel. NEURO EXAM: Normal sensorium, cranial nerves II-XII grossly intact, normal speech, no gross weakness of arms, no gross weakness of legs. Medical Decision & Procedures ER Provider Diagnostic Interpretation: Radiology results as stated below per my review and the radiologist's interpretation: LEFT VENOUS DOPP LOWER EXT UNILAT FINDINGS: Left: Common femoral vein: Patent. Femoral vein: Patent. Greater saphenous vein: Patent. Popliteal vein: Patent. Calf veins: Limited visualization. Other: Benign-appearing left inguinal lymph node noted. Subjacent to this, a 1.9 x 1.3 x 1.7 cm predominantly cystic appearing avascular focus noted. This is in the region of the left inguinal canal. IMPRESSION: 1. No evidence of deep venous thrombosis. 2. Suspected fluid within a left inguinal hernia. Electronically signed by: Jorge L Mcmullen M.D. Medications Administered Medications (Trade) Dose Ordered Sig/Samira Route Start Time Stop Time Status Last Admin Dose Admin Cephalexin Monohydrate (Keflex Cap) 500 mg NOW ONCE PO 04/13/17 13:15 04/13/17 13:17 DC 04/13/17 13:11 500 MG ED Course ED COURSE: Vital signs were reviewed and showed hypertension. The patients medical record was reviewed The above diagnostic studies were performed and reviewed. ED treatments and interventions as stated above. 1129: The patient was evaluated in room B7. A complete history and physical examination was performed. 1315: Ordered Keflex Cap 500 mg PO. Upon reevaluation, the patient is resting comfortably. I discussed my findings with the patient and she understands and agrees with the treatment plan. Based on the patients age, coexisting illnesses, exam and lab findings the decision to treat as an outpatient was made. The patient remained stable while under my care. The patient appeared well at the time of discharge. Medical Decision Differential diagnosis includes etiologies such as cellulitis, abscess, MRSA infection, DVT, necrotizing fasciitis, dermatitis, drug eruption, as well as others were entertained. Patient is a 56-year-old female who presents the ER for swelling of her left calf. She fell and bruised several days ago on Wednesday. She notes it was a mechanical fall. She does have minimal tenderness along the tibial plateau. I recommended repeat imaging but she declined. She had she has had 3 separate x- rays. Duplex lower extremity shows no clot. It did show a cyst in the left upper thigh which I recommended following up in one week. Otherwise on exam this does appear to be typical bruising following a fall. She also appears to have scratch chan on the right medial thigh and I think the erythema is from scratching but she was covered with Keflex just in case this was the start of a cellulitis. Medication Reconcilliation Current Medication List: was personally reviewed by me Blood Pressure Screening Patient's blood pressure: Elevated blood pressure Blood pressure disposition: Elevated BP felt to be situational Impression Primary Impression: Cellulitis Additional Impression: Contusion of leg Scribe Attestation The scribe's documentation has been prepared under my direction and personally reviewed by me in its entirety. I confirm that the note above accurately reflects all work, treatment, procedures, and medical decision making performed by me. Departure Information Dispostion Home / Self-Care Prescriptions Cephalexin Monohydrate (Keflex) 500 Mg Cap 500 MG PO TID for 7 Days, CAP Prov: Ernesto Pearce, 04/13/17 Referrals RV. Grullon MD (PCP) Forms HOME CARE DOCUMENTATION FORM, IMPORTANT VISIT INFORMATION Patient Instructions Cellulitis - [facility], ED Contusion Lower Ext, My [facility] Additional Instructions Please follow up with your primary care doctor or if you are a student, [facility] with in the next 24 hours. Any worsening of your symptoms, please return to the ED immediately. This includes any fevers greater than 100.4, worsening pain,, worsening redness, inability to walk or any other concerning signs or symptoms from your standpoint. Problem Qualifiers Primary Impression: Cellulitis Site of cellulitis: unspecified site Qualified Codes: L03.90 - Cellulitis, unspecified Additional Impression: Contusion of leg Encounter type: initial encounter Laterality: left Qualified Codes: S80.12XA - Contusion of left lower leg, initial encounter
== END 2017-04-13 13:15 | disposition home or self-care (01) ==
LOC: C.EDB 10:01
DX: L03.116 Cellulitis of left lower limb (principal); S80.12XA Contusion of left lower leg, initial encounter; X58.XXXA Exposure to other specified factors, initial encounter; R22.42 Localized swelling, mass and lump, left lower limb; Z90.710 Acquired absence of both cervix and uterus; Z87.891 Personal history of nicotine dependence

== ENCOUNTER → 2017-06-30 | Outpatient (CLI) | payer BC ==
[~2017-06-30] MED LIST changes: +CALC600T PO; +CYNI1000 IM; -POLY335019 PO; -PRED10TA PO; +VNTHFA/IN INH
== END | disposition home or self-care (01) ==
LOC: C.PATHSPEC 10:18
PROVIDERS: ATTEND Urology
DX: R30.0 Dysuria (principal); R39.15 Urgency of urination

== ENCOUNTER → 2017-07-30 | Outpatient (CLI) | payer BC ==
--- NOTE | 2017-08-02 07:49 | MAMMOGRAPHY REPORT ---
BILATERAL DIGITAL SCREENING MAMMOGRAM TOMOSYNTHESIS WITH CAD: 07/30/2017 CLINICAL HISTORY: Routine screening. Patient has no complaints. TECHNIQUE: Breast tomosynthesis in addition to standard 2D mammography was performed. Current study was also evaluated with a Computer Aided Detection (CAD) system. COMPARISON: Comparison is made to exams dated: 07/03/2015 mammogram, 11/20/2010 mammogram - [facility], 10/27/2006, and 03/27/2009. BREAST COMPOSITION: There are scattered areas of fibroglandular density in both breasts. FINDINGS: No suspicious masses, calcifications, or areas of architectural distortion are noted in ei ther breast. The breasts are smaller and there is diffusely increased density bilaterally compared t o prior exams, consistent with history of weight loss. Scattered bilateral benign-appearing calcific ations are not significantly changed. A linear scar marker denotes a scar on the left upper inner br east. IMPRESSION: ACR BI-RADS CATEGORY 2: BENIGN There is no mammographic evidence of malignancy. A 1 year screening mammogram is recommended. The pa tient will receive written notification of the results. Approximately 10% of breast cancers are not detected with mammography. A negative mammographic report should not delay biopsy if a clinically suggestive mass is present. Uzma Valentine M.D. ah/:07/30/2017 13:43:03 Clinical Laboratory Technologist: Jolene Del Castillo M, [facility] letter sent: Normal 1/2 BI-RADS Code: ACR BI-RADS Category 2: Benign
== END | disposition home or self-care (01) ==
LOC: C.MAMM 13:05
PROVIDERS: ATTEND Internal Medicine
DX: Z12.31 Encounter for screening mammogram for malignant neoplasm of breast (principal)

== ENCOUNTER → 2017-08-31 | Outpatient (CLI) | payer BC, OTHER ==
--- NOTE | 2017-08-31 15:21 | DIAGNOSTIC IMAGING REPORT ---
CHEST 2 VIEWS ROUTINE CLINICAL HISTORY: R50.9 [id number] dyspnea COMPARISON STUDY: 12/23/2016 FINDINGS: Subtle interstitial changes left lung base. Potential subtle nodularity right midlung. Density over the right lung potentially is slightly increased in prominence over study 2016. Pulmonary apices are considered clear. IMPRESSION: Potential minimal interstitial infiltrate left base. 2. Potential nodular density right midlung slightly progressive as compared to [address] of the chest is recommended as follow-up. The above report was generated using voice recognition software. It may contain grammatical, syntax or spelling errors. Electronically signed by: Kal De La Vega M.D. 08/31/2017 3:19 PM Dictated Date/Time: 08/31/2017 3:16 PM
== END | disposition home or self-care (01) ==
LOC: C.RAD1850 14:54
PROVIDERS: ATTEND Internal Medicine
DX: R05 Cough (principal); R50.9 Fever, unspecified

== ENCOUNTER → 2017-09-17 | Outpatient (CLI) | payer OTHER ==
[2017-09-17 22:29] LABS: ALBUMIN 3.7 gm/dl (3.4-5.0); ALT/SGPT 24 U/L (12-78); BLOOD UREA NITROGEN 24 mg/dl (7-18); CALCIUM 9.3 mg/dl (8.5-10.1); CARBON DIOXIDE 28 mmol/L (21-32); GLUCOSE 86 mg/dl (70-99); SODIUM 137 mmol/L (136-145)
[2017-09-17 22:32] LABS: ALKALINE PHOSPHATASE 88 U/L (45-117); AST/SGOT 23 U/L (15-37)
== END | disposition home or self-care (01) ==
LOC: C.LAB 21:18
PROVIDERS: ATTEND Urology
DX: D35.02 Benign neoplasm of left adrenal gland (principal)

== ENCOUNTER → 2017-09-19 | Outpatient (CLI) | payer OTHER ==
--- NOTE | 2017-09-24 08:22 | CODING QUERY NO DIAGNOSIS ---
TREATMENT RENDERED WITHOUT A DIAGNOSIS To promote full compliance with coding requirements relating to patient care, physician participation is requested in all cases of c.o.d. clerk uncertainty. Please assist us with providing a diagnosis/symptom for the test(s) below: A diagnosis/symptom was not documented on your Order. A valid diagnosis/symptom is required to bill all insurances. Please remember that we are unable to code a diagnosis of rule out, probable, possible, questionable, or suspected. Tests that require a diagnosis: DOS: 09/19/17 * METANEPHRINES 24 HR URINE DIAGNOSIS: Provider Signature: Date: Thank you Chantel Serrano [email or web address] Once completed, please kindly fax back to [phone] For questions please call [phone]
== END | disposition home or self-care (01) ==
LOC: C.LABSPEC 13:19
PROVIDERS: ATTEND Urology
DX: D35.02 Benign neoplasm of left adrenal gland (principal)

== ENCOUNTER → 2017-11-15 | Outpatient (CLI) | payer OTHER ==
--- NOTE | 2017-11-15 16:12 | DIAGNOSTIC IMAGING REPORT ---
(CHEST) THORAX WITHOUT CLINICAL HISTORY: R05 [id number] Abnormal chest x-ray COMPARISON STUDY: CT scan dated 09/15/2011, chest x-ray dated 08/31/2017 CT DOSE: 222.50 mGycm TECHNIQUE: CT of the thorax was performed from the thoracic inlet to the lung bases. Images are reviewed in the axial, sagittal, and coronal planes. IV contrast was not administered for this examination. A dose lowering technique was utilized adhering to the principles of ALARA. FINDINGS: Thyroid: Imaged portions of the thyroid gland are normal in appearance. Thoracic aorta: The thoracic aorta is normal in course and caliber, noting standard 3 vessel arch anatomy. Heart: The heart is normal in size and configuration, without pericardial effusion. Lungs and pleural spaces: There are no pleural effusions. There is no focal pulmonary consolidation. CT scanning fails to confirm the presence of a right midlung zone pulmonary mass. There is underlying pulmonary emphysema. Mediastinum: There is no evidence of pathologic mediastinal adenopathy Viviana: There is no evidence of pathologic hilar adenopathy given the limitations of a noncontrast study Axilla: There is no evidence of pathologic axillary lymphadenopathy Upper abdomen: There are postsurgical changes of a prior gastric bypass. There is a 3 cm left adrenal adenoma. Skeletal structures: There is an old right-sided rib fracture. IMPRESSION: 1. No acute intrathoracic findings 2. CT scanning fails to confirm the presence of a right midlung zone mass 3. Emphysema 4. No evidence of focal pulmonary consolidation 5. No evidence of pathologic adenopathy 6. 3 cm left adrenal adenoma Electronically signed by: Fransico Sebastian M.D. 11/15/2017 4:11 PM Dictated Date/Time: 11/15/2017 4:06 PM
== END | disposition home or self-care (01) ==
LOC: C.CTS 15:15
PROVIDERS: ATTEND Internal Medicine
DX: R05 Cough (principal); R93.8 Abnormal findings on diagnostic imaging of other specified body structures; J43.9 Emphysema, unspecified; D35.00 Benign neoplasm of unspecified adrenal gland

== ENCOUNTER → 2018-03-31 | Outpatient (CLI) | payer OTHER ==
[~2018-03-31] MED LIST changes: +DICY10CA55 PO; +LRS10 PO; +ONDA4TAB46 PO; +PANT40TA PO; +RANI150T3 PO; +ULT50 PO; +ZOLE5INJ3 IV
--- NOTE | 2018-03-31 17:53 | DIAGNOSTIC IMAGING REPORT ---
R RIBS UNILATERAL WITH PA CHEST CLINICAL HISTORY: S29.9XXA Chest wall trauma, initial [id number] Chest wall p COMPARISON STUDY: None FINDINGS: Negative ribs. Negative chest. IMPRESSION: Negative study The above report was generated using voice recognition software. It may contain grammatical, syntax or spelling errors. Electronically signed by: Kal De La Vega M.D. 03/31/2018 5:52 PM Dictated Date/Time: 03/31/2018 5:50 PM
== END | disposition home or self-care (01) ==
LOC: C.RAD 17:29
PROVIDERS: ATTEND Internal Medicine
DX: R07.89 Other chest pain (principal); S29.9XXA Unspecified injury of thorax, initial encounter; X58.XXXA Exposure to other specified factors, initial encounter

== ENCOUNTER 2018-04-04 18:49 | Emergency (ER) | payer OTHER ==
[~2018-04-04] VITALS: Ht 162.6 cm; Wt 74.6 kg
[~2018-04-04 18:49] MED LIST changes: -DICY10CA55 PO; -LRS10 PO; -ONDA4TAB46 PO; -PANT40TA PO; -RANI150T3 PO; -ULT50 PO; -ZOLE5INJ3 IV
[2018-04-04 18:54] VITALS: TEMP 36.9; Ht 162.6 cm; Wt 74.6 kg
[2018-04-04] MEDS ORDERED: DICYCLOMINE HCL 20 MG TAB PO STA (19:16)
[2018-04-04] MEDS ORDERED: KETOROLAC TROMETHAMINE 30 MG/ML VIAL IV STA (19:16)
[2018-04-04] MEDS ORDERED: ONDANSETRON INJ 2 MG/ML 2 ML VIAL IV STA (19:16)
--- NOTE | 2018-04-04 19:36 | EMERGENCY ROOM VISIT NOTE ---
History Report prepared by Latesha: Bibiana Rodriguez Under the Supervision of: Dr. Saturnino Mcgrath M.D. First contact with patient: 18:57 Chief Complaint: ABDOMINAL PAIN Stated Complaint: STOMACH PAIN History of Present Illness The patient is a 57 year old white female with a past medical history of pancreatitis, hernia surgery, gastric bypass, stomach ulcer, and hysterectomy who presents to the ED with a cc of constant abdominal pain beginning 1 week ago. She notes the pain waxes and wanes in intensity, but she is unsure what causes the pain to lessen or worsen. She notes bending over relieves her pain. The patient note she has had 2 previous episodes of similar pain, and denied a cholecystectomy in the past, but her current pain is persisting longer than previous episodes. She denies any urination or bowel movement difficulties. The patient reports her urine has been darker than normal, but denies any blood in her urine. She notes she took 2 tramadol, which relieved her pain slightly. The patient notes she has been under increased stress lately and that she is more anxious than usual. She denies a history of gallstones. Source of History: patient Onset: 1 week ago Position: abdomen Quality: other (abdominal pain) Timing: constant, waxes/wanes Modifying Factors (Relieving): other (bedning o) Associated Symptoms: + urinary symptoms (darker than normal, denies blood) Review of Systems See HPI for pertinent positives and negatives. A total of ten systems were reviewed and were otherwise negative. Past Medical & Surgical Medical Problems: (1) History of - hysterectomy (2) Pancreatitis (3) UTI (urinary tract infection) Family History Hypertension Social History Smoking Status: Never Smoker Smokeless Tobacco Use: No Alcohol Use: none Drug Use: none Marital Status: Housing Status: lives alone Occupation Status: employed Current/Historical Medications Scheduled Calcium Carbonate (Calcium 600), 1,200 MG PO DAILY Cyanocobalamin (Cyanocobalamin), 1,000 MCG IM MONTHLY Dicyclomine Hcl (Bentyl), 10 MG PO TID Pediatric Multiple Vitamin W/ (Flintstones Chewable), 2 TABS PO QPM Zoledronic Acid (Zoledronic Acid), 1 DOSE IV YEARLY Scheduled PRN Albuterol Hfa (Ventolin Hfa), 1-2 PUFFS INH QID PRN for Shortness of Breath Baclofen (Baclofen), 10-20 MG PO TID PRN for Muscle Pain Ondansetron Hcl (Zofran), 4 MG PO Q8H PRN for Nausea Tramadol HCl (Tramadol HCl), 50 MG PO BID PRN for Pain Allergies Coded Allergies: Gabapentin (Verified Allergy, Unknown, VISUAL DISTURBANCES, 04/13/17) Adhesives (Verified Adverse Reaction, Unknown, RASH, 04/13/17) Physical Exam Vital Signs Date Time Temp Pulse Resp B/P (MAP) Pulse Ox O2 Delivery O2 Flow Rate FiO2 04/04/18 21:36 50 125/64 98 04/04/18 18:54 36.9 69 18 142/94 99 Room Air Physical Exam GENERAL: Awake, alert, well-appearing, NAD HENT: Normocephalic, atraumatic. EYES: Normal conjunctiva. Sclera non-icteric. PERRL. No anisocoria. NECK: Supple. No nuchal rigidity. FROM. RESPIRATORY: CTAB, no rhonchi, wheezing, crackles CARDIAC: RRR, no MRG ABDOMEN: Soft, BS+, mild diffuse pain. Positive White's sign. Negative obturators, negative psoas. MSK: No chest wall TTP, no LE edema, no CVA TTP. NEURO: GCS 15, CN 2-12 intact, moves all 4s on command SKIN: No rash or jaundice noted. Medical Decision & Procedures ER Provider Diagnostic Interpretation: Radiology results as stated below per my review and radiologist interpretation: KUB HISTORY: Generalized abdominal pain. COMPARISON: None. FINDINGS: The bowel gas pattern is unremarkable. There are no dilated loops of small bowel to suggest an obstruction. No renal calculi. No ureteral calculi. No pneumoperitoneum or pneumatosis. Moderate amount well-formed stool within the colon. The lung bases are clear. IMPRESSION: Unremarkable bowel gas pattern. No evidence for bowel obstruction. Electronically signed by: Luis Stearns M.D. 04/04/2018 7:59 PM Dictated Date/Time: 04/04/2018 7:58 PM ABDOMINAL ULTRASOUND, RIGHT UPPER QUADRANT HISTORY: Right upper quadrant pain.. COMPARISON: Abdominal ultrasound 08/31/2016. FINDINGS: Pancreas: The pancreas demonstrates a normal echotexture. Liver: Unremarkable. Gallbladder: No gallbladder wall thickening. No gallstones. CBD: 7 mm. This is mildly distended but remains unchanged. Right kidney: No hydronephrosis. IMPRESSION: 1. Normal gallbladder. No gallstones. 2. The common bile duct is mildly distended up to 7 mm. However, this remains unchanged compared to the 08/31/2016 abdominal ultrasound. Electronically signed by: Luis Stearns M.D. 04/04/2018 9:44 PM Dictated Date/Time: 04/04/2018 9:41 PM Laboratory Results 04/04/18 19:40 Red Blood Count 3.83, Mean Corpuscular Volume 95.3, Mean Corpuscular Hemoglobin 31.9, Mean Corpuscular Hemoglobin Concent 33.4, Mean Platelet Volume 10.0, Neutrophils (%) (Auto) 62.0, Lymphocytes (%) (Auto) 23.9, Monocytes (%) (Auto) 12.2, Eosinophils (%) (Auto) 1.4, Basophils (%) (Auto) 0.5, Neutrophils # (Auto ) 2.70, Lymphocytes # (Auto) 1.04, Monocytes # (Auto) 0.53, Eosinophils # (Auto ) 0.06, Basophils # (Auto) 0.02 04/04/18 19:40 Test 04/04/18 19:30 04/04/18 19:40 Urine Color DK YELLOW Urine Appearance CLEAR (CLEAR) Urine pH 5.5 (4.5-7.5) Urine Specific [place] 1.029 (1.000-1.030) Urine Protein TRACE (NEG) Urine Glucose (UA) NEG (NEG) Urine Ketones 1+ (NEG) Urine Occult Blood NEG (NEG) Urine Nitrite NEG (NEG) Urine Bilirubin NEG (NEG) Urine Urobilinogen NEG (NEG) Urine Leukocyte Esterase TRACE (NEG) Urine WBC (Auto) 1-5 /hpf (0-5) Urine RBC (Auto) 0-4 /hpf (0-4) Urine Hyaline Casts (Auto) 1-5 /lpf (0-5) Urine Epithelial Cells (Auto) >30 /lpf (0-5) Urine Bacteria (Auto) NEG (NEG) White Blood Count 4.35 K/uL (4.8-10.8) Red Blood Count 3.83 M/uL (4.2-5.4) Hemoglobin 12.2 g/dL (12.0-16.0) Hematocrit 36.5 % (37-47) Mean Corpuscular Volume 95.3 fL (80-100) Mean Corpuscular Hemoglobin 31.9 pg (25-34) Mean Corpuscular Hemoglobin Concent 33.4 g/dl (32-36) Platelet Count 182 K/uL (130-400) Mean Platelet Volume 10.0 fL (7.4-10.4) Neutrophils (%) (Auto) 62.0 % Lymphocytes (%) (Auto) 23.9 % Monocytes (%) (Auto) 12.2 % Eosinophils (%) (Auto) 1.4 % Basophils (%) (Auto) 0.5 % Neutrophils # (Auto) 2.70 K/uL (1.4-6.5) Lymphocytes # (Auto) 1.04 K/uL (1.2-3.4) Monocytes # (Auto) 0.53 K/uL (0.11-0.59) Eosinophils # (Auto) 0.06 K/uL (0-0.5) Basophils # (Auto) 0.02 K/uL (0-0.2) RDW Standard Deviation 43.7 fL (36.4-46.3) RDW Coefficient of Variation 12.5 % (11.5-14.5) Immature Granulocyte % (Auto) 0.0 % Immature Granulocyte # (Auto) 0.00 K/uL (0.00-0.02) Anion Gap 4.0 mmol/L (3-11) Est Creatinine Clear Calc Drug Dose 89.0 ml/min Estimated GFR () 112.0 Estimated GFR (Non- 96.6 BUN/Creatinine Ratio 26.8 (10-20) Calcium Level 7.9 mg/dl (8.5-10.1) Total Bilirubin 0.4 mg/dl (0.2-1) Direct Bilirubin 0.1 mg/dl (0-0.2) Aspartate Amino Transf (AST/SGOT) 17 U/L (15-37) Alanine Aminotransferase (ALT/SGPT) 24 U/L (12-78) Alkaline Phosphatase 77 U/L (45-117) Total Protein 6.6 gm/dl (6.4-8.2) Albumin 3.4 gm/dl (3.4-5.0) Lipase 193 U/L (73-393) Laboratory results reviewed by me Medications Administered Medications (Trade) Dose Ordered Sig/Samira Route Start Time Stop Time Status Last Admin Dose Admin Ondansetron HCl (Zofran Inj) 4 mg NOW STAT IV 04/04/18 19:16 04/04/18 19:25 DC 04/04/18 20:03 4 MG Ketorolac Tromethamine (Toradol Inj) 30 mg NOW STAT IV 04/04/18 19:16 04/04/18 19:25 DC 04/04/18 20:03 30 MG Dicyclomine HCl (Bentyl Tab) 20 mg ONE STAT PO 04/04/18 19:16 04/04/18 19:25 DC 04/04/18 20:03 20 MG ED Course 1909: The patient was evaluated in room B10. A complete history and physical exam was performed. 2129: I reevaluated the patient. Discussed results and discharge instructions: she verbalized understanding and agreement. The patient is ready for discharge. Medical Decision The patient is a 57 year old white female with a past medical history of pancreatitis, hernia surgery, gastric bypass, stomach ulcer, and hysterectomy who presents to the ED with a cc of constant abdominal pain beginning 1 week ago. Etiologies such as appendicitis, diverticulitis, PUD, biliary pathology, UTI, pancreatitis, obstruction, mesenteric ischemia, aortic pathology, infections, inflammatory bowel disease, renal colic, as well as others were entertained. Patient was seen and evaluated the bedside. The patient does have a known history of a Luis-en-Y gastric bypass and prior history of peptic ulcer. The patient has been complaining of some right upper quadrant discomfort as well as some diffuse abdominal discomfort. The patient has had a recent bowel movement denies any urinary symptoms. Patient has no CVA tenderness to palpation. Patient did have blood work completed along with a KUB and right upper quadrant ultrasound given the patient's prior history of pancreatitis and gallbladder attacks per patient. Patient's KUB does not show any overt obstruction. The patient blood work is fairly unremarkable. LFTs and lipase within normal limits and the patient has normal kidney function. The patient has stable vital signs and a normal white blood cell count. Patient's gallbladder ultrasound is also unremarkable. I did discuss the findings with the patient. Given the patient's reassuring blood work improvement in symptoms and normal imaging I believe she is safe for follow-up and outpatient treatment at this time. Patient was given strict follow-up, discharge, and return precautions. All questions were answered. Patient was deemed suitable for outpatient follow-up at this time. Patient agreed with the plan of care and was safely discharged home. Medication Reconcilliation Current Medication List: was personally reviewed by me Blood Pressure Screening Patient's blood pressure: Normal blood pressure Blood pressure disposition: Did not require urgent referral Impression Primary Impression: Abdominal pain Scribe Attestation The scribe's documentation has been prepared under my direction and personally reviewed by me in its entirety. I confirm that the note above accurately reflects all work, treatment, procedures, and medical decision making performed by me. Departure Information Dispostion Home / Self-Care Prescriptions Ondansetron Hcl (ZOFRAN) 4 Mg Tab 4 MG PO Q8H Y for Nausea, #12 TAB Prov: Saturnino Mcgrath M.D. 04/04/18 Dicyclomine Hcl (BENTYL) 10 Mg Cap 10 MG PO TID, #12 CAP Prov: Saturnino Mcgrath M.D. 04/04/18 Referrals RV. Grullon MD (PCP) Forms Call Back Authorization, HOME CARE DOCUMENTATION FORM, IMPORTANT VISIT INFORMATION Patient Instructions Abdominal Pain, My Vixlo, Nausea Vomit Control Additional Instructions Please return to the emergency department if you have worsening or recurrent symptoms not amenable to at-home treatment. Please call for a follow-up appointment with her primary care physician. Please take your medications as prescribed. If you have other concerns and/or complaints please feel free to also call your primary care physician's office or return the ED for further evaluation, management, and treatment. You were found to have an elevated blood pressure today (>120 sytolic or >90 diastolic). Per medicare guidelines, you need to follow up with this blood pressure screening with your Primary Care Physician (PCP). For a new PCP call [phone]. You received narcotic or benzodiazepene medication while in the emergency room today. This is an addictive medication that may cause drowziness as well as constipation. Do not drive, operate heavy machinery, or drink alcohol under the influence of this medication. You may take 400 mg Ibuprofen every 6 hours as needed for pain/fever with food unless told by your physician not to take NSAIDs. You may take tylenol 650 mg every 6 hours as needed for pain/fever unless told by your physician to not take it or have liver problems. You may take motrin and tylenol separately or at the same time. Take your medications as prescribed. You have been examined and treated today on an emergency basis only. This is not a substitute for, or an effort to provide, complete comprehensive medical care. It is impossible to recognize and treat all injuries or illnesses in a single emergency department visit. It is therefore important that you follow up closely with [facility], your PCP, and/or your specialist(s). Call as soon as possible for an appointment. Thank you for your time and consideration. I look forward to speaking with you again soon. Please don't hesitate to call us if you have any questions. Problem Qualifiers Primary Impression: Abdominal pain Abdominal location: right upper quadrant Qualified Codes: R10.11 - Right upper quadrant pain
[2018-04-04] MEDS ORDERED: ZOLE5INJ3 IV (19:39)
[2018-04-04] MEDS ORDERED: ULT50 PO (19:39)
[2018-04-04] MEDS ORDERED: LRS10 PO (19:39)
[2018-04-04 19:55] LABS: BASO % 0.5 %; BASO ABS # 0.02 K/uL (0-0.2); EOS % 1.4 %; EOS ABS # 0.06 K/uL (0-0.5); HEMATOCRIT 36.5 % (37-47); HEMOGLOBIN 12.2 g/dL (12.0-16.0); LYMPH % 23.9 %; LYMPH ABS # 1.04 K/uL (1.2-3.4); MEAN CELL VOLUME 95.3 fL (80-100); MEAN CORPUSCULAR HEMOGLOBIN 31.9 pg (25-34); MEAN CORPUSCULAR HGB CONC 33.4 g/dl (32-36); MONO % 12.2 %; MONO ABS # 0.53 K/uL (0.11-0.59); PLATELET COUNT 182 K/uL (130-400); RED CELL DISTRIBUTION WIDTH CV 12.5 % (11.5-14.5); RED CELL DISTRIBUTION WIDTH SD 43.7 fL (36.4-46.3); WHITE BLOOD COUNT 4.35 K/uL (4.8-10.8)
--- NOTE | 2018-04-04 20:00 | DIAGNOSTIC IMAGING REPORT ---
KUB HISTORY: Generalized abdominal pain. COMPARISON: None. FINDINGS: The bowel gas pattern is unremarkable. There are no dilated loops of small bowel to suggest an obstruction. No renal calculi. No ureteral calculi. No pneumoperitoneum or pneumatosis. Moderate amount well-formed stool within the colon. The lung bases are clear. IMPRESSION: Unremarkable bowel gas pattern. No evidence for bowel obstruction. Electronically signed by: Luis Stearns M.D. 04/04/2018 7:59 PM Dictated Date/Time: 04/04/2018 7:58 PM
[2018-04-04 20:16] LABS: ALBUMIN 3.4 gm/dl (3.4-5.0); CALCIUM 7.9 mg/dl (8.5-10.1); CREATININE 0.69 mg/dl (0.60-1.20); POTASSIUM 3.7 mmol/L (3.5-5.1); TOTAL PROTEIN 6.6 gm/dl (6.4-8.2)
[2018-04-04] MEDS ORDERED: ONDA4TAB46 PO (20:59)
[2018-04-04] MEDS ORDERED: DICY10CA55 PO (20:59)
[2018-04-04 21:36] VITALS: BP 125/64; PULSE 50; O2SAT 98
--- NOTE | 2018-04-04 21:45 | DIAGNOSTIC IMAGING REPORT ---
ABDOMINAL ULTRASOUND, RIGHT UPPER QUADRANT HISTORY: Right upper quadrant pain.. COMPARISON: Abdominal ultrasound 08/31/2016. FINDINGS: Pancreas: The pancreas demonstrates a normal echotexture. Liver: Unremarkable. Gallbladder: No gallbladder wall thickening. No gallstones. CBD: 7 mm. This is mildly distended but remains unchanged. Right kidney: No hydronephrosis. IMPRESSION: 1. Normal gallbladder. No gallstones. 2. The common bile duct is mildly distended up to 7 mm. However, this remains unchanged compared to the 08/31/2016 abdominal ultrasound. Electronically signed by: Luis Stearns M.D. 04/04/2018 9:44 PM Dictated Date/Time: 04/04/2018 9:41 PM
[2018-04-05] MEDS ORDERED: PANT40TA PO (17:04)
[2018-04-05] MEDS ORDERED: RANI150T3 PO (17:04)
== END 2018-04-04 21:36 | disposition home or self-care (01) ==
LOC: C.EDB 18:50
DX: R10.84 Generalized abdominal pain (principal); Z87.19 Personal history of other diseases of the digestive system; Z98.84 Bariatric surgery status; Z79.899 Other long term (current) drug therapy; Z88.6 Allergy status to analgesic agent; Z91.048 Other nonmedicinal substance allergy status

== ENCOUNTER 2018-04-05 13:41 | Emergency (ER) | payer OTHER ==
[~2018-04-05] VITALS: Ht 162.6 cm; Wt 76.5 kg
[~2018-04-05 13:41] MED LIST changes: +DICY10CA55 PO; +LRS10 PO; +ONDA4TAB46 PO; -TRAM-10 PO; +ULT50 PO; +ZOLE5INJ3 IV
[2018-04-05 13:44] VITALS: TEMP 36.8; Ht 162.6 cm; Wt 76.5 kg
[2018-04-05] MEDS ORDERED: ONDANSETRON INJ 2 MG/ML 2 ML VIAL IV STA (13:56)
[2018-04-05] MEDS ORDERED: SODIUM CHLORIDE 0.9% 500ML 500 ML IV STA (13:56)
[2018-04-05] MEDS ORDERED: MoRPHine SULFATE 4 MG/ML 1 ML CARP\\VIAL IV STA (13:56)
[2018-04-05] MEDS ORDERED: SODIUM CHLORIDE 0.9% 1000ML 1,000 ML IV STA (13:56)
[2018-04-05] MEDS ORDERED: OPTIRAY 320 IV PRN (14:15)
[2018-04-05 14:22] LABS: BASO % 0.4 %; BASO ABS # 0.02 K/uL (0-0.2); EOS ABS # 0.05 K/uL (0-0.5); HEMATOCRIT 35.6 % (37-47); HEMOGLOBIN 12.1 g/dL (12.0-16.0); IG# 0.01 K/uL (0.00-0.02); LYMPH % 18.5 %; LYMPH ABS # 0.91 K/uL (1.2-3.4); MEAN CELL VOLUME 95.2 fL (80-100); MEAN CORPUSCULAR HEMOGLOBIN 32.4 pg (25-34); MEAN PLATELET VOLUME 9.3 fL (7.4-10.4); MONO % 10.6 %; MONO ABS # 0.52 K/uL (0.11-0.59); NEUT % 69.3 %; NEUT ABS # 3.41 K/uL (1.4-6.5); PLATELET COUNT 185 K/uL (130-400); RED CELL DISTRIBUTION WIDTH CV 12.6 % (11.5-14.5); RED CELL DISTRIBUTION WIDTH SD 43.6 fL (36.4-46.3); WHITE BLOOD COUNT 4.92 K/uL (4.8-10.8)
[2018-04-05 14:38] LABS: ALBUMIN 3.6 gm/dl (3.4-5.0); CALCIUM 8.2 mg/dl (8.5-10.1); CREATININE 0.64 mg/dl (0.60-1.20); POTASSIUM 4.3 mmol/L (3.5-5.1); TOTAL PROTEIN 6.8 gm/dl (6.4-8.2)
--- NOTE | 2018-04-05 16:36 | DIAGNOSTIC IMAGING REPORT ---
ABD/PELVIS IV AND ORAL CONT CT DOSE: 354.95 mGy.cm HISTORY: Pain abd pain, periumbilical, s/p gastic bypass TECHNIQUE: Multiaxial CT images of the abdomen and pelvis were performed following the use of intravenous and oral contrast. A dose lowering technique was utilized adhering to the principles of ALARA. COMPARISON STUDY: 08/31/2016 FINDINGS: Lung bases are clear. Stable operative findings consistent with a prior gastric bypass type procedure. Liver spleen pancreas are considered uniform. Kidneys enhance uniformly. There is a small benign left adrenal adenoma unchanged in the prior study. He bowel pattern is considered nonobstructive. The bladder is relatively collapsed. There is a 2.8 x 2.2 cm fluid density nodule left inguinal region felt to represent a small seroma. The bowel pattern overall is nonobstructive. Moderate degenerative changes of the thoracic and lumbar spine. IMPRESSION: 1. No acute process in the abdomen or pelvis. 2. Prior gastric bypass procedure. 3. Stable benign left adrenal nodule. 4. Nonobstructive bowel pattern. The above report was generated using voice recognition software. It may contain grammatical, syntax or spelling errors. Electronically signed by: Kal De La Vega M.D. 04/05/2018 4:35 PM Dictated Date/Time: 04/05/2018 4:30 PM
[2018-04-05 16:42] VITALS: BP 120/67; PULSE 49; O2SAT 100
[2018-04-05] MEDS ORDERED: PANTOprazole SOD 40 MG TAB PO STA (16:42)
[2018-04-05] MEDS ORDERED: RANITIDINE HCL 150 MG TAB PO ONE (16:45)
[2018-04-05] MEDS ORDERED: PANT40TA PO (17:04)
[2018-04-05] MEDS ORDERED: RANI150T3 PO (17:04)
--- NOTE | 2018-04-05 17:39 | EMERGENCY ROOM VISIT NOTE ---
History Report prepared by Latesha: Madeleine Best Under the Supervision of: Dr. Joseline Huitron M.D. First contact with patient: 13:49 Chief Complaint: ABDOMINAL PAIN Stated Complaint: ABD PAIN, SEEN LAST PM FOR PAIN - WORSENING History of Present Illness The patient is a 57 year old female who presents to the Emergency Room with complaints of intermittent abdominal pain starting a week ago. The patient states that the pain is a spasm that gets so bad she cannot even talk. She reports that it is around her belly button. She states that she was here last night and they did all sorts of tests, but sent her home. She states that she thought it was her gallbladder since she was recommended to have it out after having pancreatitis following a hernia repair. The patient states that she opted out of having it removed and has had 2-3 bouts with it, but it usually goes away. She notes that this feels similar to her past costochondritis. She notes that she is unsure if this is from falling at the swimming pool and hitting her right ribs on the slide. The patient complains of chills and not moving her bowels for 2 days. The patient denies fever, difficulty urinating, vomiting, diarrhea, and a history of an appendectomy. The patient notes a history of gastric bypass done in May of 2014. She notes that she had her first Reclast infusion a week ago and had flu like symptoms following for 2 days. She states that it has since resolved. She notes that she needed it due to her osteoporosis and osteoarthritis. Source of History: patient Onset: a week ago Position: abdomen Quality: other (similar to costochondritis) Timing: intermittent Associated Symptoms: + chills, No fevers, No vomiting, No diarrhea, No urinary symptoms Note: The patient complains of not being able to move her bowels. Review of Systems See HPI for pertinent positives & negatives. A total of 10 systems reviewed and were otherwise negative. Past Medical & Surgical Medical Problems: (1) History of - hysterectomy (2) History of stomach ulcers (3) Osteoarthritis (4) Osteoporosis (5) Pancreatitis (6) UTI (urinary tract infection) Surgical Problems: (1) Hx of hernia repair Family History Hypertension Social History Smoking Status: Former Smoker Alcohol Use: none Drug Use: none Marital Status: Housing Status: lives alone Occupation Status: employed Current/Historical Medications Scheduled Calcium Carbonate (Calcium 600), 1,200 MG PO DAILY Cyanocobalamin (Cyanocobalamin), 1,000 MCG IM MONTHLY Dicyclomine Hcl (Bentyl), 10 MG PO TID Pantoprazole (Protonix), 40 MG PO BID Pediatric Multiple Vitamin W/ (Flintstones Chewable), 2 TABS PO QPM Zoledronic Acid (Zoledronic Acid), 1 DOSE IV YEARLY Scheduled PRN Albuterol Hfa (Ventolin Hfa), 1-2 PUFFS INH QID PRN for Shortness of Breath Baclofen (Baclofen), 10-20 MG PO TID PRN for Muscle Pain Ondansetron Hcl (Zofran), 4 MG PO Q8H PRN for Nausea Ranitidine Hcl (Zantac), 150 MG PO BID PRN for GI Upset Tramadol HCl (Tramadol HCl), 50 MG PO BID PRN for Pain Allergies Coded Allergies: Gabapentin (Verified Allergy, Unknown, VISUAL DISTURBANCES, 04/05/18) Adhesives (Verified Adverse Reaction, Unknown, RASH, 04/05/18) Physical Exam Vital Signs Date Time Temp Pulse Resp B/P (MAP) Pulse Ox O2 Delivery O2 Flow Rate FiO2 04/05/18 16:42 49 19 120/67 100 Room Air 04/05/18 15:41 50 13 97 04/05/18 14:41 58 11 98 04/05/18 14:24 79 04/05/18 13:44 36.8 62 18 125/85 98 Room Air Physical Exam Vital signs reviewed. General: Well-appearing 57-year-old female, in no significant distress. HEENT: No scleral icterus, PERRLA, neck supple. Atraumatic. Cardiovascular: Regular rate and rhythm, no extra sounds. Pulmonary: Clear to auscultation bilaterally, normal work of breathing. Abdomen: Soft, tenderness to epigastric region and mid abdomen, slight guarding , no rebound, nondistended, positive bowel sounds. Musculoskeletal: Atraumatic, no peripheral edema. Neurologic: Patient awake alert and oriented x 3. Skin: Warm, dry, no rash Medical Decision & Procedures ER Provider Diagnostic Interpretation: Radiology results as stated below per my review and radiologist interpretation: ABD/PELVIS IV AND ORAL CONT CT DOSE: 354.95 mGy.cm HISTORY: Pain abd pain, periumbilical, s/p gastic bypass TECHNIQUE: Multiaxial CT images of the abdomen and pelvis were performed following the use of intravenous and oral contrast. A dose lowering technique was utilized adhering to the principles of ALARA. COMPARISON STUDY: 08/31/2016 FINDINGS: Lung bases are clear. Stable operative findings consistent with a prior gastric bypass type procedure. Liver spleen pancreas are considered uniform. Kidneys enhance uniformly. There is a small benign left adrenal adenoma unchanged in the prior study. He bowel pattern is considered nonobstructive. The bladder is relatively collapsed. There is a 2.8 x 2.2 cm fluid density nodule left inguinal region felt to represent a small seroma. The bowel pattern overall is nonobstructive. Moderate degenerative changes of the thoracic and lumbar spine. IMPRESSION: 1. No acute process in the abdomen or pelvis. 2. Prior gastric bypass procedure. 3. Stable benign left adrenal nodule. 4. Nonobstructive bowel pattern. The above report was generated using voice recognition software. It may contain grammatical, syntax or spelling errors. Electronically signed by: Kal De La Vega M.D. 04/05/2018 4:35 PM Dictated Date/Time: 04/05/2018 4:30 PM Laboratory Results 04/05/18 14:10 Red Blood Count 3.74, Mean Corpuscular Volume 95.2, Mean Corpuscular Hemoglobin 32.4, Mean Corpuscular Hemoglobin Concent 34.0, Mean Platelet Volume 9.3, Neutrophils (%) (Auto) 69.3, Lymphocytes (%) (Auto) 18.5, Monocytes (%) (Auto) 10.6, Eosinophils (%) (Auto) 1.0, Basophils (%) (Auto) 0.4, Neutrophils # (Auto ) 3.41, Lymphocytes # (Auto) 0.91, Monocytes # (Auto) 0.52, Eosinophils # (Auto ) 0.05, Basophils # (Auto) 0.02 04/05/18 14:10 Test 04/05/18 14:10 04/05/18 15:59 White Blood Count 4.92 K/uL (4.8-10.8) Red Blood Count 3.74 M/uL (4.2-5.4) Hemoglobin 12.1 g/dL (12.0-16.0) Hematocrit 35.6 % (37-47) Mean Corpuscular Volume 95.2 fL (80-100) Mean Corpuscular Hemoglobin 32.4 pg (25-34) Mean Corpuscular Hemoglobin Concent 34.0 g/dl (32-36) Platelet Count 185 K/uL (130-400) Mean Platelet Volume 9.3 fL (7.4-10.4) Neutrophils (%) (Auto) 69.3 % Lymphocytes (%) (Auto) 18.5 % Monocytes (%) (Auto) 10.6 % Eosinophils (%) (Auto) 1.0 % Basophils (%) (Auto) 0.4 % Neutrophils # (Auto) 3.41 K/uL (1.4-6.5) Lymphocytes # (Auto) 0.91 K/uL (1.2-3.4) Monocytes # (Auto) 0.52 K/uL (0.11-0.59) Eosinophils # (Auto) 0.05 K/uL (0-0.5) Basophils # (Auto) 0.02 K/uL (0-0.2) RDW Standard Deviation 43.6 fL (36.4-46.3) RDW Coefficient of Variation 12.6 % (11.5-14.5) Immature Granulocyte % (Auto) 0.2 % Immature Granulocyte # (Auto) 0.01 K/uL (0.00-0.02) Anion Gap 6.0 mmol/L (3-11) Est Creatinine Clear Calc Drug Dose 97.1 ml/min Estimated GFR () 114.8 Estimated GFR (Non- 99.1 BUN/Creatinine Ratio 28.7 (10-20) Calcium Level 8.2 mg/dl (8.5-10.1) Magnesium Level 2.4 mg/dl (1.8-2.4) Total Bilirubin 0.4 mg/dl (0.2-1) Direct Bilirubin 0.1 mg/dl (0-0.2) Aspartate Amino Transf (AST/SGOT) 18 U/L (15-37) Alanine Aminotransferase (ALT/SGPT) 23 U/L (12-78) Alkaline Phosphatase 76 U/L (45-117) Total Protein 6.8 gm/dl (6.4-8.2) Albumin 3.6 gm/dl (3.4-5.0) Lipase 51 U/L (73-393) Urine Color DK YELLOW Urine Appearance CLEAR (CLEAR) Urine pH 5.0 (4.5-7.5) Urine Specific [place] 1.032 (1.000-1.030) Urine Protein TRACE (NEG) Urine Glucose (UA) NEG (NEG) Urine Ketones TRACE (NEG) Urine Occult Blood NEG (NEG) Urine Nitrite NEG (NEG) Urine Bilirubin NEG (NEG) Urine Urobilinogen NEG (NEG) Urine Leukocyte Esterase NEG (NEG) Urine WBC (Auto) 1-5 /hpf (0-5) Urine RBC (Auto) 0-4 /hpf (0-4) Urine Hyaline Casts (Auto) 1-5 /lpf (0-5) Urine Epithelial Cells (Auto) 20-30 /lpf (0-5) Urine Bacteria (Auto) 1+ (NEG) Urine Crystals CALCIUM OXALATE (NONE Laboratory results per my review. Medications Administered Medications (Trade) Dose Ordered Sig/Samira Route Start Time Stop Time Status Last Admin Dose Admin Sodium Chloride 500 ml @ 999 mls/hr Q31M STAT IV 04/05/18 13:56 04/05/18 14:26 DC 04/05/18 14:14 999 MLS/HR Sodium Chloride 1,000 ml @ 125 mls/hr Q8H STAT IV 04/05/18 13:56 04/05/18 17:35 DC 04/05/18 14:14 125 MLS/HR Morphine Sulfate (MoRPHine SULFATE INJ) 4 mg NOW STAT IV 04/05/18 13:56 04/05/18 14:00 DC 04/05/18 14:13 4 MG Ondansetron HCl (Zofran Inj) 4 mg NOW STAT IV 04/05/18 13:56 04/05/18 14:00 DC 04/05/18 14:13 4 MG Pantoprazole Sodium (Protonix Tab) 40 mg NOW STAT PO 04/05/18 16:42 04/05/18 16:43 DC 04/05/18 16:48 40 MG Ranitidine HCl (zANTac TAB) 150 mg NOW ONCE PO 04/05/18 16:45 04/05/18 16:46 DC 04/05/18 16:48 150 MG ED Course 1353: Past medical records reviewed. The patient was evaluated in room C8. A complete history and physical examination was performed. 1704: Upon reevaluation, the patient appeared to have improvement of her symptoms. I discussed findings with her. She verbalized agreement of the treatment plan. The patient was discharged home. Medical Decision Differential diagnosis: Etiologies such as appendicitis, diverticulitis, PUD, biliary pathology, UTI, pancreatitis, obstruction, mesenteric ischemia, aortic pathology, infections, inflammatory bowel disease, renal colic, anastomotic ulcer, as well as others were entertained. This patient was evaluated and appeared to be in some discomfort. Patient's records were reviewed from the previous visit. Obtained and laboratory work was drawn. Patient was hydrated with normal saline solution, given IV morphine and Zofran for her discomfort. CT scan of the abdomen pelvis was performed with IV and oral contrast. The study is negative for acute intra-abdominal or pelvic pathology. Laboratory work is fairly unrevealing. Urinalysis is clear. I suspect the patient may be suffering from a peptic ulcer or anastomotic ulceration. She was placed on Protonix 40 mg twice daily for 2 weeks, then once daily. She will use Zantac 150 mg p.o. twice daily as needed. She was given her first dose of both Protonix and Zantac in the ED. Patient was advised to use Tylenol as needed for pain. She stated she was "scared" of the pain however I do not feel that narcotic therapy is indicated at this time. She was referred to gastroenterology for further evaluation. She will return to the ED for worsening of symptoms or any medical concerns. Medication Reconcilliation Current Medication List: was personally reviewed by me Blood Pressure Screening Patient's blood pressure: Normal blood pressure Blood pressure disposition: Did not require urgent referral Impression Primary Impression: Gastritis Additional Impression: S/P gastric bypass Scribe Attestation The scribe's documentation has been prepared under my direction and personally reviewed by me in its entirety. I confirm that the note above accurately reflects all work, treatment, procedures, and medical decision making performed by me. Departure Information Dispostion Home / Self-Care Prescriptions Ranitidine Hcl (ZANTAC) 150 Mg Tab 150 MG PO BID Y for GI Upset for 30 Days, #60 TAB Prov: Joseline Huitron M.D. 04/05/18 Pantoprazole (Protonix) 40 Mg Tab 40 MG PO BID, #45 TAB Prov: Joseline Huitron M.D. 04/05/18 Referrals RV. Grullon MD (PCP) Forms Call Back Authorization, HOME CARE DOCUMENTATION FORM, IMPORTANT VISIT INFORMATION Patient Instructions My [facility] Additional Instructions Diagnosis: Gastritis status post gastric bypass Protonix 40 mg twice daily for 2 weeks, then once daily. Zantac 150 mg twice daily as needed for gastritis. Drink plenty of clear fluids. Avoid NSAIDs such as Aleve, ibuprofen and aspirin. Avoid alcohol, coffee and soda. Maintain a bland diet until symptoms improve. Contact [facility] gastroenterology, Dr. Mosley for reevaluation and consideration of a scope. Return to the ED for worsening of symptoms or any medical concerns. Problem Qualifiers
--- NOTE | 2018-04-07 12:51 | Pharmacy Progress Note ---
ED Pharmacist Culture FollowUp Date of Service: Apr 07, 2018. Patient's urinary culture growing Klebsiella 50,000 CRU/ml, patient denied urinary symptoms at visit, CT negative, UA non suggestive (possible contamination). Given growth lower than 100,000 CFU/ml, urinalysis non- suggestive and patient without symptoms no need for treatment.
== END 2018-04-05 17:03 | disposition home or self-care (01) ==
LOC: C.EDB 13:42 → C.EDC 17:03
DX: K29.70 Gastritis, unspecified, without bleeding (principal); Z98.84 Bariatric surgery status; Z79.899 Other long term (current) drug therapy; Z90.710 Acquired absence of both cervix and uterus; Z87.440 Personal history of urinary (tract) infections; M19.90 Unspecified osteoarthritis, unspecified site; M81.0 Age-related osteoporosis without current pathological fracture; Z82.49 Family history of ischemic heart disease and other diseases of the circulatory system; Z87.891 Personal history of nicotine dependence; Z91.048 Other nonmedicinal substance allergy status; Z88.8 Allergy status to other drugs, medicaments and biological substances

== ENCOUNTER 2022-06-28 18:01 | Inpatient (IN) ==
[2022-06-28] MEDS ORDERED: ONDANSETRON INJ 2 MG/ML 2 ML VIAL IV STA (18:42)
[2022-06-28] MEDS ORDERED: HYDROmorphone INJ 1 MG/ML SYRINGE IV STA (18:42)
[2022-06-28] MEDS ORDERED: SODIUM CHLORIDE 0.9% 1000ML 1,000 ML IV ONE (18:42)
--- NOTE | 2022-06-28 18:47 | Emergency Department Note ---
History of Present Illness General Chief complaint: Abdominal Pain Stated complaint: HERNIA, SWOLLEN AND HARD, ABD PAIN Time Seen by Provider: 06/28/22 18:33 History of Present Illness Maximum Pain Intensity: 8 This is a 62-year-old female with a history of left inguinal hernia, left adre nal mass, COPD, who presents with acute onset left groin pain in the area where her known hernia is located. This has become much more severe, accompanied by nausea, and almost passing out from the pain. This began after performing some "aggressive" yard work today. She states that it is a very hard, larger than normal mass in her left groin. She did not vomit yet but feels like she might. She tried taking some [id number] pain medication without any relief. Endorses chills. She has been constipated over the past few days. Denies any diarrhea. She knew about this hernia but needed to have another surgery and was not having symptoms with this hernia so decided to put it off until more convenient time. Has followed with Dr. Morgan. She denies any chest pain, shortness of breath, fevers, lightheadedness, weakness. Home Medications Medication Instructions Recorded Confirmed Type calcium carbonate 600 mg-vitamin 1 tab PO QAM 10/21/18 01/01/22 History D3 10 mcg (400 unit) tablet (Calcium 600 + D(3)) cyanocobalamin (vitamin B-12) 1,000 mcg IM MONTHLY 10/21/18 01/01/22 History 1,000 mcg/mL injection solution pediatric multivitamin no.42 1 tab PO HS 10/21/18 01/01/22 History (Flintstones Sour Gummies Complete chewable tablet) omeprazole 40 mg capsule,delayed 40 mg PO QAM 04/14/19 01/01/22 History release albuterol sulfate 90 mcg/actuation 1 - 2 puffs inhalation Q4H PRN 07/27/19 01/01/22 History aerosol inhaler Shortness Of Breath Or Wheezing lorazepam 0.5 mg tablet 0.5 mg PO DAILY PRN severe anxiety 11/18/20 01/01/22 Rx #30 tabs diclofenac sodium 1 % topical gel 2 g topical QID #100 grams 01/01/22 01/01/22 Rx (Voltaren Arthritis Pain) prednisone 20 mg tablet 40 mg PO DAILY #10 tabs 06/10/22 06/10/22 Rx tramadol 50 mg tablet 50 mg PO DAILY PRN Pain #30 tabs 06/18/22 06/28/22 Rx amoxicillin 500 mg tablet 500 mg PO TID 06/28/22 06/28/22 History omeprazole 20 mg capsule,delayed 20 mg PO DAILY 06/28/22 06/28/22 History release Allergies Allergy/AdvReac Type Severity Reaction Status Date / Time adhesive Allergy Mild RASH Verified 01/01/22 15:25 gabapentin Allergy Mild VISUAL Verified 01/01/22 15:25 DISTURBANCES duloxetine [From Cymbalta] AdvReac Mild "made me Verified 01/01/22 15:25 feel bad" Past Med/Surg History Medical History Abdominal pain Anxiety Asthma NO FLARE UPS UNTIL WITH A CHEST COLD. Dermatitis Dysuria GERD (gastroesophageal reflux disease) H/O. NO PROBLEMS RECENTLY History of stomach ulcers Osteoporosis Pancreatitis ~2015/2016 Sleep apnea H/O. NO PROBLEMS SINCE WEIGHT LOSS Tubular adenoma of colon UTI (urinary tract infection) Surgical History H/O cosmetic surgery bilateral brachioplasty (arm lift) H/O foot surgery RIGHT TARSAL TUNNEL RELEASE History of arthroscopy RIGHT KNEE History of bilateral tubal ligation History of carpal tunnel release BILATERAL History of colonoscopy History of ERCP History of esophagogastroduodenoscopy (EGD) History of gastric bypass History of laparoscopy Hx of hernia repair RIGHT INGUINAL S/P JAQUAN-BSO Status post gastric bypass for obesity Family History Father Cancer Mother Breast cancer Unknown Breast cancer Grandfather No problems noted. Grandfather (Maternal) Lung cancer Grandfather (Paternal) Lung cancer Other No family history of adverse response to anesthesia Denies family history of Ovarian cancer Prostate cancer Crohn's disease Myocardial infarction Colorectal cancer Social History Cigarettes Per Day: 30 CIGS X 37 YEARS; Second Hand Exposure: Yes (parents smoked); Hx Alcohol Use: No Hx Substance Use: Yes Preferred Language: Turkish Communication Ability: Effective Visual Impairment: No Limitations Hearing Ability: Normal Interstate Planner Required: No Beliefs That Will Affect Care: None marital status: Single Current Living Situation: Alone current occupational status: employed Feels Safe at Home: Yes Childhood Exposure to Second-Hand Smoke: Yes Dental Care, Regularly: Yes Physical Activity Frequency: 3-4 Times per Week Seatbelt Use: always Sunscreen Use: Yes Review of Systems See HPI for pertinent positives & negatives. and A total of 10 systems reviewed and were otherwise negative Physical Exam Vital Signs Vital Signs - 24 hr 06/28/22 18:05 06/28/22 18:46 06/28/22 18:01 Temperature 36.1 C L Temperature Source Temporal Artery Scan Pulse Rate 45 L 95 H Pulse Rhythm Regular Respiratory Rate 16 19 20 Respiratory Effort / Characteristics Non-Labored Spontaneous Non-Labored Respiratory Depth Normal Normal Respiratory Pattern Regular Regular Blood Pressure 174/79 H Blood Pressure [Right Arm] 132/77 Blood Pressure Mean 110 Blood Pressure Mean [Right Arm] 95 Blood Pressure Position Sitting Blood Pressure Position [Right Arm] Lying Pulse Oximetry 98 98 99 Oxygen Delivery Method Room Air Nasal Cannula Nasal Cannula Oxygen Flow Rate 2 2 Sepsis Recent Fever Within 48 Hours No Sepsis New/Unexplained Change in Mental Status No Sepsis Action Taken by Nursing No Action Required CONSTITUTIONAL: Well developed, well nourished, appears to be in moderate pain. Shaking intermittently. HEAD: Normocephalic, atraumatic. EYES: conjunctivae normal, extraocular muscles intact. ENMT: External ears normal. Nose with normal external appearance, no congestion. NECK: Full active range of motion. RESPIRATORY: Breathing unlabored and symmetric. Lungs clear to auscultation bilaterally. No wheeze, rales, or rhonchi. CARDIOVASCULAR: Bradycardic rate and regular rhythm. No murmurs, rubs, or gallops. ABDOMEN: RN document management specialist in exam room. There is a large bulge in the left inguinal region. This is rock hard and exquisitely tender to palpation. No overlying skin color changes. Remainder of abdomen is soft however there is significant tenderness diffusely. MUSCULOSKELETAL: Moves all extremities at all joints without pain or difficulty. SKIN: [place], warm, dry. NEUROLOGIC: Awake, alert, oriented. Gaze is conjugate. Speech normal. Moves head and all four extremities spontaneously. Sensation and strength grossly intact. PSYCHIATRIC: Appropriate. Normal affect Course Consultations Consultation #1: Spoke with Dr. Goss (general surgery) regarding the case. He states been Marshall will be right down to evaluate the patient at bedside. Time: 18:53 Consultation #2: Surgery at bedside to see patient. She will be taken straight to the OR, no CT scan. Time: 19:12 Administered Medications Hydromorphone HCl (Hydromorphone Inj 1 Mg/Ml Syringe) 1 mg IV Q2HWA PRN PRN Reason: Pain (6,7,8,9,10) Stop: 07/12/22 23:01 Last Admin: 06/29/22 05:16 Dose: 1 mg Documented By: Admin: 06/29/22 03:24 Dose: 1 mg Documented By: Admin: 06/29/22 00:59 Dose: 1 mg Documented By: SUNSHINE Lactated Ringer's (Lr) 1,000 mls @ 75 mls/hr IV .[id number] NATHEN Stop: 07/28/22 19:29 Last Admin: 06/28/22 23:23 Dose: 75 mls/hr Documented By: SUNSHINE Piperacillin Sod/Tazobactam (Sod 3.375 gm/ Dextrose) 115 mls @ 28.75 mls/hr IV Q8H NATHEN; Protocol Stop: 07/09/22 01:59 Last Infusion: 06/29/22 05:40 Dose: 0 mls/hr Documented By: Admin: 06/29/22 02:02 Dose: 28.8 mls/hr Documented By: SUNSHINE Acetaminophen (Ofirmev) 1,000 mg in 100 mls @ 400 mls/hr IV Q8H NATHEN Stop: 07/02/22 00:29 Last Infusion: 06/29/22 07:51 Dose: 0 mls/hr Documented By: Admin: 06/29/22 07:33 Dose: 400 mls/hr Documented By: Infusion: 06/29/22 00:47 Dose: 0 mls/hr Documented By: Admin: 06/29/22 00:30 Dose: 400 mls/hr Documented By: SUNSHINE Pantoprazole Sodium (Pantoprazole 40 Mg Tab) 40 mg PO DAILY [facility] Stop: 07/29/22 08:59 Last Admin: 06/29/22 09:09 Dose: Not Given Documented By: HAL Discontinued Medications Bupivacaine HCl (Bupivacaine 0.5 % 5 Mg/1 Ml Mpf 30ml Vial) Confirm Administered Dose 30 ml .ROUTE .STK-MED ONE Stop: 06/28/22 19:48 Last Admin: 06/28/22 20:55 Dose: 20 ml Documented By: Mathieu Cefazolin Sodium (Cefazolin 330 Mg/Ml 1 Gm Vial) Confirm Administered Dose 990 mg .ROUTE .STK-MED ONE Stop: 06/28/22 19:48 Last Admin: 06/28/22 20:55 Dose: Not Given Documented By: VIRGINIA Diphenhydramine HCl (Diphenhydramine 50 Mg/Ml Vial) 25 mg IV NOW STA Stop: 06/29/22 06:46 Last Admin: 06/29/22 07:32 Dose: 25 mg Documented By: AMS Fentanyl Citrate (Fentanyl Citrate 100 Mcg/2 Ml Vial) 25 mcg IV Q5M PRN PRN Reason: PACU Use Only-Pain Stop: 06/29/22 03:55 Last Admin: 06/28/22 22:11 Dose: 25 mcg Documented By: Admin: 06/28/22 22:06 Dose: 25 mcg Documented By: Admin: 06/28/22 22:01 Dose: 25 mcg Documented By: Admin: 06/28/22 21:56 Dose: 25 mcg Documented By: WT Fentanyl Citrate (Fentanyl Citrate 100 Mcg/2 Ml Vial) Confirm Administered Dose 100 mcg .ROUTE .STK-MED ONE Stop: 06/28/22 21:57 Last Admin: 06/28/22 22:14 Dose: Not Given Documented By: WT Hydromorphone HCl (Hydromorphone Inj 1 Mg/Ml Syringe) 1 mg IV NOW STA Stop: 06/28/22 18:43 Last Admin: 06/28/22 18:50 Dose: 1 mg Documented By: RDFaith Hydromorphone HCl (Hydromorphone Inj 0.5 Mg/0.5 Ml Syr) 0.5 mg IV Q3HWA PRN PRN Reason: Pain (6,7,8,9,10) Stop: 07/12/22 23:01 Last Admin: 06/28/22 23:20 Dose: 0.5 mg Documented By: SUNSHINE Sodium Chloride (Nss 1000ml) 1,000 mls @ 999 mls/hr IV .Q1H1M ONE Stop: 06/28/22 19:42 Last Infusion: 06/28/22 23:45 Dose: 0 mls/hr Documented By: Admin: 06/28/22 18:50 Dose: 999 mls/hr Documented By: DATD Piperacillin Sod/Tazobactam Sod (Zosyn) 4.5 gm in 120 mls @ 240 mls/hr IV NOW ONE Stop: 06/28/22 19:50 Last Admin: 06/28/22 19:36 Dose: Not Given Documented By: DATD Acetaminophen (Ofirmev) 1,000 mg in 100 mls @ 400 mls/hr IV NOW ONE Stop: 06/28/22 21:35 Last Admin: 06/28/22 23:23 Dose: Not Given Documented By: SUNSHINE Ondansetron HCl (Ondansetron Inj 2 Mg/Ml 2 Ml Vial) 4 mg IV NOW STA Stop: 06/28/22 18:43 Last Admin: 06/28/22 18:50 Dose: 4 mg Documented By: DATD Piperacillin Sod/Tazobactam Sod (Piperacillin/Tazobactam 4.5 Gm/120ml D5w) Confirm Administered Dose 4.5 gm IV .STK-MED ONE Stop: 06/28/22 19:11 Last Admin: 06/28/22 19:11 Dose: 4.5 gm Documented By: DATD Medical Decision Making Differential Diagnosis Incarcerated hernia, strangulated hernia, inguinal hernia, inguinal adenopathy, diverticulitis, abscess, appendicitis, ovarian torsion, bowel ischemia, vasovagal episode, perforation, among other pathology Medical Records Attestation: I reviewed the patient's medical records. Laboratory Data Result diagrams: 06/29/22 05:53 06/29/22 05:53 Lab Results 06/28/22 06/28/22 06/28/22 Range/Units 18:20 18:20 18:59 WBC 6.25 (4.8-10.8) K/ul RBC 4.09 (3.93-5.22) M/uL Hgb 12.9 (12.0-16.0) g/dl POC Hgb 12.2 (12.0-16.0) g/dl Hct 38.3 (34.1-44.9) % POC Hct 36 L (37-47) % MCV 93.6 (80.0-100.0) fL MCH 31.5 (25.0-34.0) pg MCHC 33.7 (32.0-36.0) g/dL RDW Std Deviation 43.8 (36.4-46.3) fL RDW Coeff of Michelle 12.7 (11.5-14.5) % Plt Count 198 (130-400) K/uL MPV 10.6 (9.4-12.3) fL Immature Gran % (Auto) 0.3 % Neut % (Auto) 70.1 % Lymph % (Auto) 18.4 % [place] % (Auto) 9.4 % Eos % (Auto) 1.3 % Baso % (Auto) 0.5 % Neut # (Auto) 4.38 (1.4-6.5) K/uL Lymph # (Auto) 1.15 L (1.2-3.4) K/uL [place] # (Auto) 0.59 (0.24-0.82) K/uL Eos # (Auto) 0.08 (0-0.50) K/uL Baso # (Auto) 0.03 (0-0.2) K/uL Immature Gran # (Auto) 0.02 (0.00-0.02) K/uL POC Sodium 140 (135-144) mmol/L Sodium 139 (136-145) mmol/L POC Potassium 3.7 (3.3-5.0) mmol/L Potassium 3.9 (3.5-5.1) mmol/L POC Chloride 104 (101-112) mmol/L Chloride 105 (98-107) mmol/L Carbon Dioxide 27 (21-32) mmol/L POC Total CO2 24 (24-31) mmol/L Anion Gap 7 (3-11) POC Anion Gap 17.0 (16-25) mmol/L POC BUN 27 H (7-18) mg/dl BUN 29 H (6-23) mg/dl Creatinine 0.82 (0.6-1.2) mg/dl POC Creatinine 0.9 (0.6-1.3) mg/dl Est Cr Clr Drug Dosing 68.7 ml/min Est GFR ( Amer) 88.9 ml/min Est GFR (Non-Af Amer) 76.7 ml/min BUN/Creatinine Ratio 35.4 H (10-20) Glucose 94 (70-99(Fasting)) mg/dl POC Glucose (other) 97 (70-99) mg/dl Calcium 9.5 (8.5-10.1) mg/dl POC Ioniz Calcium [place] 1.22 (1.12-1.32) mmol/l Total Bilirubin 0.5 (0.2-1.0) mg/dl AST 29 (13-39) U/L ALT 19 (7-52) U/L Alkaline Phosphatase 66 (34-104) U/L Total Protein 6.9 (6.0-8.3) gm/dl Albumin 4.2 (3.4-5.0) gm/dl Globulin 2.7 (2.5-4.0) gm/dl Albumin/Globulin Ratio 1.6 (0.9-2) SARS-CoV-2, RNA, NAAT (NEGATIVE) 06/28/22 Range/Units 19:10 WBC (4.8-10.8) K/ul RBC (3.93-5.22) M/uL Hgb (12.0-16.0) g/dl POC Hgb (12.0-16.0) g/dl Hct (34.1-44.9) % POC Hct (37-47) % MCV (80.0-100.0) fL MCH (25.0-34.0) pg MCHC (32.0-36.0) g/dL RDW Std Deviation (36.4-46.3) fL RDW Coeff of Michelle (11.5-14.5) % Plt Count (130-400) K/uL MPV (9.4-12.3) fL Immature Gran % (Auto) % Neut % (Auto) % Lymph % (Auto) % [place] % (Auto) % Eos % (Auto) % Baso % (Auto) % Neut # (Auto) (1.4-6.5) K/uL Lymph # (Auto) (1.2-3.4) K/uL [place] # (Auto) (0.24-0.82) K/uL Eos # (Auto) (0-0.50) K/uL Baso # (Auto) (0-0.2) K/uL Immature Gran # (Auto) (0.00-0.02) K/uL POC Sodium (135-144) mmol/L Sodium (136-145) mmol/L POC Potassium (3.3-5.0) mmol/L Potassium (3.5-5.1) mmol/L POC Chloride (101-112) mmol/L Chloride (98-107) mmol/L Carbon Dioxide (21-32) mmol/L POC Total CO2 (24-31) mmol/L Anion Gap (3-11) POC Anion Gap (16-25) mmol/L POC BUN (7-18) mg/dl BUN (6-23) mg/dl Creatinine (0.6-1.2) mg/dl POC Creatinine (0.6-1.3) mg/dl Est Cr Clr Drug Dosing ml/min Est GFR ( Amer) ml/min Est GFR (Non-Af Amer) ml/min BUN/Creatinine Ratio (10-20) Glucose (70-99(Fasting)) mg/dl POC Glucose (other) (70-99) mg/dl Calcium (8.5-10.1) mg/dl POC Ioniz Calcium [place] (1.12-1.32) mmol/l Total Bilirubin (0.2-1.0) mg/dl AST (13-39) U/L ALT (7-52) U/L Alkaline Phosphatase (34-104) U/L Total Protein (6.0-8.3) gm/dl Albumin (3.4-5.0) gm/dl Globulin (2.5-4.0) gm/dl Albumin/Globulin Ratio (0.9-2) SARS-CoV-2, RNA, NAAT NEGATIVE (NEGATIVE) MDM Narrative 62-year-old female with a known left inguinal hernia presents with an acute, increasing in size, firm bulge in the left inguinal region. She is in severe pa in in this area is exquisitely tender to palpation. The remainder of her abdomen is soft though tender. Patient was prioritized at triage due to a heart rate of 45 which I suspect to be secondary to vasovagal pain response. Immediately saw the patient and placed her on gambling monitor. She had a sinus rhythm in the 50s while I was in the exam room, and this improved to sinus rhythm in the 60s after Dilaudid. Hypertensive in the 170s systolic which I suspect secondary to pain. She is otherwise stable. Clinically most concerned about incarcerated/strangulated inguinal hernia. Sctek-ec-byee labs were obtained. In the meantime, I called and spoke with Dr. Goss (general surgery) prior to any imaging to notify them of my concerns. Dilaudid for pain control, Zofran for nausea. CT was ordered however surgery saw the patient at bedside and will take her straight to the OR without any CT imaging. Patient's pain was better controlled and she was in a sinus rhythm in the 70s at time of being transported to the OR. Attending Attestation: I Juarez Hwang MD independently saw and evaluated this patient and agree with history and physical is otherwise documented by the physician diploma medical assistant. See their note for full details. Patient more comfortable in bed after pain medications. Concern for incarcerated hernia and PA has immediately had surgery evaluation the patient and they plan OR. Impression & Plan Incarcerated inguinal hernia Discharge Plan Visit Data Chief Complaint: Abdominal Pain Stated Complaint: HERNIA, SWOLLEN AND HARD, ABD PAIN ED Provider: Juarez Hwang ED Midlevel Provider: Rei Lr Discharge Problem: Incarcerated inguinal hernia Patient Disposition: Admitted As Inpatient Condition: Fair Discharge Instructions Interventions: ED Discharge Assessment Last Done: 06/28/22 20:00
[2022-06-28 18:59] LABS: Basophils # (auto) 0.03 K/uL (0-0.2); Basophils % (auto) 0.5 %; Eosinophils # (auto) 0.08 K/uL (0-0.50); Eosinophils % (auto) 1.3 %; Hematocrit (blood only) 38.3 % (34.1-44.9); Hemoglobin 12.9 g/dl (12.0-16.0); Immature Granulocytes # (auto) 0.02 K/uL (0.00-0.02); Immature Granulocytes % (auto) 0.3 %; Lymphocytes # (auto) 1.15 K/uL (1.2-3.4); Lymphocytes % (auto) 18.4 %; Mean Corpuscular Hemoglobin 31.5 pg (25.0-34.0); Mean Corpuscular Hgb Conc 33.7 g/dL (32.0-36.0); Mean Corpuscular Volume 93.6 fL (80.0-100.0); Mean Platelet Volume 10.6 fL (9.4-12.3); Monocytes # (auto) 0.59 K/uL (0.24-0.82); Monocytes % (auto) 9.4 %; Neutrophils # (auto) 4.38 K/uL (1.4-6.5); Neutrophils % (auto) 70.1 %; Platelet Count 198 K/uL (130-400); RDW Coefficient of Variation 12.7 % (11.5-14.5); RDW Standard Deviation 43.8 fL (36.4-46.3); Red Blood Count 4.09 M/uL (3.93-5.22); White Blood Count 6.25 K/ul (4.8-10.8)
[2022-06-28] MEDS ORDERED: PIPERACILLIN/TAZOBACTAM 4.5 GM/120ML D5W IV ONE (19:10)
[2022-06-28 19:12] LABS: iSTAT Creatinine 0.9 mg/dl (0.6-1.3); iSTAT Hemoglobin 12.2 g/dl (12.0-16.0); iSTAT Ionized Calcium 1.22 mmol/l (1.12-1.32); iSTAT Potassium 3.7 mmol/L (3.3-5.0)
[2022-06-28 19:21] LABS: Albumin Globulin Ratio 1.6 (0.9-2); Albumin Level 4.2 gm/dl (3.4-5.0); BUN Creatinine Ratio 35.4 (10-20); Bilirubin,Total 0.5 mg/dl (0.2-1.0); Calcium 9.5 mg/dl (8.5-10.1); Creatinine Clr Calc Pharmacy 68.7 ml/min; Est GFR (African American) 88.9 ml/min; Est GFR (Non-African American) 76.7 ml/min; Globulin 2.7 gm/dl (2.5-4.0); Potassium 3.9 mmol/L (3.5-5.1); Total Protein 6.9 gm/dl (6.0-8.3)
[2022-06-28] MEDS ORDERED: PIPERACILLIN/TAZOBACTAM 4.5 GM/120 ML BAG IV ONE (19:21)
--- NOTE | 2022-06-28 19:23 | History & Physical Report ---
Date of Service June 28, 2022 Assessment & Plan (1) Incarcerated inguinal hernia: Plan: The patient's clinical presentation and clinical exam findings are consistent with incarcerated left inguinal hernia. We will therefore proceed as follows: We will keep the patient n.p.o. We will hydrate with IV fluids We will administer antibiotics in the form of Zosyn We will send a COVID test We are tentatively planning on performing an open left inguinal hernia with Dr. Goss this evening. Dr. Goss discussed the surgical procedure with the patient including the possibility of needing a bowel or small bowel resection. Patient agrees and wishes to proceed this evening. Upon presentation the emergency department the patient was noted to be bradycardic with a heart in the 40s. At the time of my interview with the patient her heart rate was in the 90s. We will monitor the patient closely intraoperatively. Consideration will be given to placing the patient on a monitored floor postoperatively and we will list the help of the hospitalist to felt to be necessary. Additional recommendations be forthcoming based on operative findings and patient's postoperative course History of Present Illness Chief Complaint: Incarcerated left inguinal hernia Primary Care Provider: Jan Christianson MD This is a 62-year-old female who presented to [facility] emergency department secondary to left groin pain. Patient says that she has a known left inguinal hernia that has not been problematic but approximately 3 hours prior to presentation she began to have some severe pain in the left groin. She also noted a masslike lump in the left groin that was painful to palpation. She did experience some nausea without vomiting. She denies any fevers, shakes, chills. She notes her most recent oral intake was approximately 12:00 PM today (approximately 7 hours prior to presentation to the emergency department). Patient says she has had multiple abdominal surgeries including a gastric bypass, hysterectomy, a right inguinal herniorrhaphy (mesh was utilized during this procedure she believes), and removal of a mass from her left adrenal gland. The treating clinician in the emergency department felt the patient had findings consistent with an incarcerated left inguinal hernia and therefore general surgery was asked to evaluate her for surgical intervention. In the emergency department the patient had labs including a CBC were white blood cell count, hemoglobin, hematocrit, platelet count were noted to be within normal range. Chemistry profile showed sodium and potassium were noted to be normal on yaass-ut-yqcs labs. The patient's tueib-cw-hcds BUN and creatinine were also noted to be within normal range. In the emergency department the patient was noted to have episodes of bradycardia with a heart rate in the 40s. The patient does not report any chest pain, lightheadedness, dizziness, or shortness of breath. The patient's records were reviewed and she did have an echocardiogram in July 2021 that was available for my review. This study showed the patient had a 60% ejection fraction with mild mitral regurgitation. No diastolic dysfunction was noted. She was noted to have normal systolic function. At the time of my interview the patient was resting in bed. She did have some discomfort in the left inguinal region but she was in no distress. Allergies Allergy/AdvReac Type Severity Reaction Status Date / Time adhesive Allergy Mild RASH Verified 01/01/22 15:25 gabapentin Allergy Mild VISUAL Verified 01/01/22 15:25 DISTURBANCES duloxetine [From Cymbalta] AdvReac Mild "made me Verified 01/01/22 15:25 feel bad" Home Medications Medication Instructions Recorded Confirmed Type calcium carbonate 600 mg-vitamin 1 tab PO QAM 10/21/18 01/01/22 History D3 10 mcg (400 unit) tablet (Calcium 600 + D(3)) cyanocobalamin (vitamin B-12) 1,000 mcg IM MONTHLY 10/21/18 01/01/22 History 1,000 mcg/mL injection solution pediatric multivitamin no.42 1 tab PO HS 10/21/18 01/01/22 History (Flintstones Sour Gummies Complete chewable tablet) omeprazole 40 mg capsule,delayed 40 mg PO QAM 04/14/19 01/01/22 History release albuterol sulfate 90 mcg/actuation 1 - 2 puffs inhalation Q4H PRN 07/27/19 01/01/22 History aerosol inhaler Shortness Of Breath Or Wheezing lorazepam 0.5 mg tablet 0.5 mg PO DAILY PRN severe anxiety 11/18/20 01/01/22 Rx #30 tabs diclofenac sodium 1 % topical gel 2 g topical QID #100 grams 01/01/22 01/01/22 Rx (Voltaren Arthritis Pain) azithromycin 250 mg tablet See Rx Instructions PO .COMPLEX #6 06/10/22 06/10/22 Rx (Zithromax Z-Kavin) tabs prednisone 20 mg tablet 40 mg PO DAILY #10 tabs 06/10/22 06/10/22 Rx tramadol 50 mg tablet 50 mg PO DAILY PRN Pain #30 tabs 06/18/22 Rx Past Med/Surg History Medical History Abdominal pain Anxiety Asthma NO FLARE UPS UNTIL WITH A CHEST COLD. Dermatitis Dysuria GERD (gastroesophageal reflux disease) H/O. NO PROBLEMS RECENTLY History of stomach ulcers Osteoporosis Pancreatitis ~2015/2016 Sleep apnea H/O. NO PROBLEMS SINCE WEIGHT LOSS Tubular adenoma of colon UTI (urinary tract infection) Surgical History H/O cosmetic surgery bilateral brachioplasty (arm lift) H/O foot surgery RIGHT TARSAL TUNNEL RELEASE History of arthroscopy RIGHT KNEE History of bilateral tubal ligation History of carpal tunnel release BILATERAL History of colonoscopy History of ERCP History of esophagogastroduodenoscopy (EGD) History of gastric bypass History of laparoscopy Hx of hernia repair RIGHT INGUINAL S/P JAQUAN-BSO Status post gastric bypass for obesity Family History Father Cancer Mother Breast cancer Unknown Breast cancer Grandfather No problems noted. Grandfather (Maternal) Lung cancer Grandfather (Paternal) Lung cancer Other No family history of adverse response to anesthesia Denies family history of Ovarian cancer Prostate cancer Crohn's disease Myocardial infarction Colorectal cancer Social History Smoking Status: Never smoker Cigarettes Per Day: 30 CIGS X 37 YEARS; Second Hand Exposure: Yes (parents smoked); Hx Alcohol Use: No Hx Substance Use: Yes (USES ONCE A MONTH) Last Used Substance: Days (ago) Last Used Substance Other:: 02/01/21 Preferred Language: Swedish Communication Ability: Effective Visual Impairment: No Limitations Hearing Ability: Normal 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 Required: No Beliefs That Will Affect Care: None marital status: Single Current Living Situation: Alone current occupational status: employed Feels Safe at Home: Yes Childhood Exposure to Second-Hand Smoke: Yes Dental Care, Regularly: Yes Physical Activity Frequency: 3-4 Times per Week Seatbelt Use: always Sunscreen Use: Yes Assistive Devices: None Review of Systems Constitutional: no fever and no chills Eyes: no eye pain Ear, Nose, Mouth, Throat: no ear pain Respiratory: no cough and no dyspnea Cardiovascular: no chest pain Gastrointestinal: + abdominal pain (Left groin) and + nausea; no vomiting Genitourinary: no dysuria Musculoskeletal: no back pain Integumentary: no rash Neurologic: no localized weakness Physical Exam Constitutional: well developed and well nourished; no acute distress Eyes: no conjunctival abnormality ENMT: Ears: no hearing impairment and no external ear abnormality Mouth: no oropharynx abnormality Neck: trachea midline Respiratory: normal respiratory effort; no respiratory distress and no labored breathing Cardiovascular: Rate/Rhythm: regular rate and regular rhythm Gastrointestinal (Abdomen): Abdomen is soft and nondistended. It is nonrigid. The patient was noted to have a mass in the left groin that was tender to palpation. There were no open areas, cuts, or areas of drainage. There is no surrounding erythema. The mass in the left groin was consistent with a left inguinal hernia and was nonreducible. Musculoskeletal: No calf tenderness Skin: no rashes Neurologic: moves all extremities Psychiatric: A+Ox3, euthymic affect Results & Data Results & Data ([facility]) Vital Signs (Past 12 Hours) Vital Signs Temp Pulse Resp BP Pulse Ox O2 Del Method 06/28/22 18:05 36.1 C L 45 L 16 174/79 H 98 Room Air Supervising Physician Co-Signing Physician Notes Dr. Gosspatient evaluated in the emergency room. She did incarcerated possibly strangulated left inguinal hernia Concern is for bowel infarction she requires emergency operation\\ We may need to do a bowel resection I have discussed this with the patient and her daughter We will proceed as soon as possible PG Care Time/CCT Total # of Minutes Spent Total Time Spent with Patient: Total time spent is greater than 50% in coordination of care (as documented) at patient's floor/unit and/or counseling patient: Coding Level of Care Code 17159 Initial Inpt Care Lvl 3 Diagnoses Incarcerated inguinal hernia K40.30
[2022-06-28] MEDS ORDERED: BUPIVACAINE 0.5 % 5 MG/1 ML MPF 30ML VIAL ONE (19:47)
[2022-06-28] MEDS ORDERED: ceFAZolin 330 MG/ML 1 GM VIAL ONE (19:47)
[2022-06-28] MEDS ORDERED: SUCCINYLCHOLINE CHLORIDE 20 MG/ML 10 ML VIAL IV ONE (19:50)
[2022-06-28] MEDS ORDERED: fentaNYL citrate 100 MCG/2 ML VIAL ONE ×2 (19:50→21:56)
[2022-06-28] MEDS ORDERED: ONDANSETRON INJ 2 MG/ML 2 ML VIAL ONE (19:50)
[2022-06-28] MEDS ORDERED: PROPOFOL IV EMULSION 10 MG/ML 20 ML VIAL IV ONE (19:50)
[2022-06-28] MEDS ORDERED: ROCURONIUM BROMIDE 10 MG/ML 5 ML VIAL IV ONE (19:50)
[2022-06-28] MEDS ORDERED: MIDAZOLAM HCL 1 MG/ML 2ML VIAL ONE (19:50)
[2022-06-28] MEDS ORDERED: DEXAMETHASONE SOD INJ 4 MG/ML VIAL ONE (19:50)
[2022-06-28] MEDS ORDERED: SUGAMMADEX SODIUM 200 MG/2 ML VIAL IV ONE (19:54)
[2022-06-28] MEDS ORDERED: ONDANSETRON INJ 2 MG/ML 2 ML VIAL IV PRN ×2 (19:54→23:02)
[2022-06-28] MEDS ORDERED: HYDROmorphone INJ 1 MG/ML SYRINGE IV PRN (19:54)
[2022-06-28] MEDS ORDERED: ePHEDrine sulfate 50 MG/ML AMP IV PRN (19:54)
[2022-06-28] MEDS ORDERED: ATROPINE SULFATE 0.1 MG/ML 10ML SYR IV PRN (19:54)
--- NOTE | 2022-06-28 19:56 | Anesthesiology Consultation ---
Date of Service June 28, 2022 Assessment & Plan (1) Encounter for pre-operative examination: Chart Review Chart Review: Acceptable Risk for Surgery and Patient NOT seen in Pre Admission Testing Consults Requested none History Surgery Operation Date: 06/28/22 07:40 Proposed Procedures p Inguinal Hernia Repair(Left) - Giovany Goss MD, FACS Height/Weight Height: 5 ft 4 in Weight: 70.8 kg Allergies Allergy/AdvReac Type Severity Reaction Status Date / Time adhesive Allergy Mild RASH Verified 01/01/22 15:25 gabapentin Allergy Mild VISUAL Verified 01/01/22 15:25 DISTURBANCES duloxetine [From Cymbalta] AdvReac Mild "made me Verified 01/01/22 15:25 feel bad" Medications Home Medications Medication Instructions Recorded Confirmed Last Taken calcium carbonate 600 mg-vitamin 1 tab PO QAM 10/21/18 01/01/22 02/14/21 D3 10 mcg (400 unit) tablet (Calcium 600 + D(3)) cyanocobalamin (vitamin B-12) 1,000 mcg IM MONTHLY 10/21/18 01/01/22 02/14/21 1,000 mcg/mL injection solution pediatric multivitamin no.42 1 tab PO HS 10/21/18 01/01/22 02/14/21 (Flintstones Sour Gummies Complete chewable tablet) omeprazole 40 mg capsule,delayed 40 mg PO QAM 04/14/19 01/01/22 02/14/21 release albuterol sulfate 90 mcg/actuation 1 - 2 puffs inhalation Q4H PRN 07/27/19 01/01/22 Unknown aerosol inhaler Shortness Of Breath Or Wheezing lorazepam 0.5 mg tablet 0.5 mg PO DAILY PRN severe anxiety 11/18/20 01/01/22 Unknown #30 tabs diclofenac sodium 1 % topical gel 2 g topical QID #100 grams 01/01/22 01/01/22 Unknown (Voltaren Arthritis Pain) azithromycin 250 mg tablet See Rx Instructions PO .COMPLEX #6 06/10/22 06/10/22 Unknown (Zithromax Z-Kavin) tabs prednisone 20 mg tablet 40 mg PO DAILY #10 tabs 06/10/22 06/10/22 Unknown tramadol 50 mg tablet 50 mg PO DAILY PRN Pain #30 tabs 06/18/22 Unknown Past Medical History Medical History Abdominal pain Anxiety Asthma NO FLARE UPS UNTIL WITH A CHEST COLD. Dermatitis Dysuria GERD (gastroesophageal reflux disease) H/O. NO PROBLEMS RECENTLY History of stomach ulcers Osteoporosis Pancreatitis ~2016/2016 Sleep apnea H/O. NO PROBLEMS SINCE WEIGHT LOSS Tubular adenoma of colon UTI (urinary tract infection) Exercise / Class Metabolic Activity II 4-5 Yardwork/Stairs/Walk up hill Past Family History Family History Father Cancer Mother Breast cancer Unknown Breast cancer Grandfather No problems noted. Grandfather (Maternal) Lung cancer Grandfather (Paternal) Lung cancer Other No family history of adverse response to anesthesia Denies family history of Ovarian cancer Prostate cancer Crohn's disease Myocardial infarction Colorectal cancer Past Surgical History Surgical History H/O cosmetic surgery bilateral brachioplasty (arm lift) H/O foot surgery RIGHT TARSAL TUNNEL RELEASE History of arthroscopy RIGHT KNEE History of bilateral tubal ligation History of carpal tunnel release BILATERAL History of colonoscopy History of ERCP History of esophagogastroduodenoscopy (EGD) History of gastric bypass History of laparoscopy Hx of hernia repair RIGHT INGUINAL S/P JAQUAN-BSO Status post gastric bypass for obesity Past Anesthesia History No Hx of Anesthesia Complications and No Family Hx of Anesthesia Complications History of PONV No Hx of PONV and No Hx of Motion Sickness Social History Smoking Status: Never smoker tobacco type: cigarettes Smoking cigarettes per day: 30 CIGS X 37 YEARS Hx Alcohol Use: No Hx Substance Use: Yes (USES ONCE A MONTH) substance use type: marijuana Last Used Substance: Days (ago) Last Used Substance Other:: 02/01/21 Physical Exam Vital Signs Last Vital Signs Temp 36.1 C L 06/28/22 18:05 Pulse 95 H 06/28/22 18:46 Resp 19 06/28/22 18:46 BP 174/79 H 06/28/22 18:05 Pulse Ox 98 06/28/22 18:46 O2 Del Method 06/28/22 18:46 O2 Flow Rate 2 06/28/22 18:46 Testing Laboratory Results 06/28/22 18:20 06/28/22 18:20 06/28/22 18:59 POC Glucose (other) 97
--- NOTE | 2022-06-28 20:24 | Hospitalist Consultation ---
Date of Consultation June 28, 2022 Assessment & Plan (1) Incarcerated inguinal hernia: 62yo female with a history of COPD, prediabetes, anxiety, and left adrenal adenoma s/p adrenalectomy (01/2022) presents with a few-hour history of worsening left groin pain. Patient has a known left inguinal hernia which has not been bothersome until earlier today when she developed severe left groin pain as well as nausea, and vomiting. General surgery evaluated patient and plans to take patient to the OR for an incarcerated hernia repair. The hospitalist service was consulted for a preoperative evaluation. Because patients episodic bradycardia has not been associated with hemodynamic instability or symptoms in the past, and that patient has tolerated surgical procedures in the past, most recently her left adrenalectomy in January of this year, I do not feel her episodic bradycardia represents a contraindication for surgery. Patient does not have any other uncontrolled or decompensated conditions that would preclude surgery - patients COPD is stable, renal function is not impaired, BSG is well-controlled. Patient is not on any meds that would need to be held prior to surgery. RCRI score: 1 (class II risk). Given the above, I feel patient is an appropriate surgical candidate and can proceed as planned. Please reach out to the hospitalist service with further questions. Supervising Physician Co-Signing Physician Notes Patient seen and examined, chart reviewed, case discussed with Dr. Henderson and I agree with the assessment and plan as above. In brief, patient is a 62yo female with history of COPD, Pre-DM, Anxiety and adrenal adenoma presenting with incarcerated left inginal hernia. She was taken to the OR with Dr. Goss for repair under general anesthesia. Surgery went well. Patient seen on the floor following her surgery. She is resting comfortably, in pain. She has not eaten anything, no BM yet. +S1/S2, reguar Lungs CTA Abd soft, diminished bowel sounds, dressing in LLQ Ext warm, well perfused Labs and images reviewed Assessment/Plan -IVF, pain management, anti-emetics and bowel regimen per primary team -Continue Zosyn -Protonix -Remainder as above History of Present Illness History of Present Illness 62yo female with a history of COPD, prediabetes, anxiety, and left adrenal adenoma s/p adrenalectomy (01/2022) presents with a few-hour history of worsening left groin pain. Patient has a known left inguinal hernia which has not been bothersome until earlier today when she developed severe left groin pain as well as nausea, and vomiting. General surgery evaluated patient and plans to take patient to the OR for an incarcerated hernia repair. The hospitalist service was consulted for a preoperative evaluation. In the ED, patient was noted with episodic bradycardia to the 40s, which was not associated with hemodynamic instability or any symptoms. EKG showed sinus bradycardia without evidence of ischemic change or arrhythmia. Upon review of prior records, I noted patient has had episodes of bradycardia at our facility in the past, and these episodes have not been associated with hemodynamic instability. Patient had an echocardiogram performed in 07/2021 which showed an EF of 60% and mild MR without systolic or diastolic dysfunction. Upon my interview in the preoperative area, patient reported feeling so much better than when I came in, noting her pain and nausea have both significantly improved. Patient does endorse generalized abdominal tenderness worse in the LLQ and left groin region but otherwise feels well, denying fever, chills, CP, SOB, diarrhea, lightheadedness, dizziness, weakness, or other symptoms. Allergies Allergy/AdvReac Type Severity Reaction Status Date / Time adhesive Allergy Mild RASH Verified 01/01/22 15:25 gabapentin Allergy Mild VISUAL Verified 01/01/22 15:25 DISTURBANCES duloxetine [From Cymbalta] AdvReac Mild "made me Verified 01/01/22 15:25 feel bad" Home Medications Medication Instructions Recorded Confirmed Type calcium carbonate 600 mg-vitamin 1 tab PO QAM 10/21/18 01/01/22 History D3 10 mcg (400 unit) tablet (Calcium 600 + D(3)) cyanocobalamin (vitamin B-12) 1,000 mcg IM MONTHLY 10/21/18 01/01/22 History 1,000 mcg/mL injection solution pediatric multivitamin no.42 1 tab PO HS 10/21/18 01/01/22 History (Flintstones Sour Gummies Complete chewable tablet) omeprazole 40 mg capsule,delayed 40 mg PO QAM 04/14/19 01/01/22 History release albuterol sulfate 90 mcg/actuation 1 - 2 puffs inhalation Q4H PRN 07/27/19 01/01/22 History aerosol inhaler Shortness Of Breath Or Wheezing lorazepam 0.5 mg tablet 0.5 mg PO DAILY PRN severe anxiety 11/18/20 01/01/22 Rx #30 tabs diclofenac sodium 1 % topical gel 2 g topical QID #100 grams 01/01/22 01/01/22 Rx (Voltaren Arthritis Pain) prednisone 20 mg tablet 40 mg PO DAILY #10 tabs 06/10/22 06/10/22 Rx tramadol 50 mg tablet 50 mg PO DAILY PRN Pain #30 tabs 06/18/22 06/28/22 Rx amoxicillin 500 mg tablet 500 mg PO TID 06/28/22 06/28/22 History omeprazole 20 mg capsule,delayed 20 mg PO DAILY 06/28/22 06/28/22 History release Patient History Medical History Abdominal pain Anxiety Asthma NO FLARE UPS UNTIL WITH A CHEST COLD. Dermatitis Dysuria GERD (gastroesophageal reflux disease) H/O. NO PROBLEMS RECENTLY History of stomach ulcers Osteoporosis Pancreatitis ~2015/2016 Sleep apnea H/O. NO PROBLEMS SINCE WEIGHT LOSS Tubular adenoma of colon UTI (urinary tract infection) Surgical History H/O cosmetic surgery bilateral brachioplasty (arm lift) H/O foot surgery RIGHT TARSAL TUNNEL RELEASE History of arthroscopy RIGHT KNEE History of bilateral tubal ligation History of carpal tunnel release BILATERAL History of colonoscopy History of ERCP History of esophagogastroduodenoscopy (EGD) History of gastric bypass History of laparoscopy Hx of hernia repair RIGHT INGUINAL S/P JAQUAN-BSO Status post gastric bypass for obesity Family History Father Cancer Mother Breast cancer Unknown Breast cancer Grandfather No problems noted. Grandfather (Maternal) Lung cancer Grandfather (Paternal) Lung cancer Other No family history of adverse response to anesthesia Denies family history of Ovarian cancer Prostate cancer Crohn's disease Myocardial infarction Colorectal cancer Social History Cigarettes Per Day: 30 CIGS X 37 YEARS; Second Hand Exposure: Yes (parents smoked); Hx Alcohol Use: No Hx Substance Use: Yes Preferred Language: Malay Communication Ability: Effective Visual Impairment: No Limitations Hearing Ability: Normal Toy Consultant Required: No Beliefs That Will Affect Care: None marital status: Single Current Living Situation: Alone current occupational status: employed Feels Safe at Home: Yes Childhood Exposure to Second-Hand Smoke: Yes Dental Care, Regularly: Yes Physical Activity Frequency: 3-4 Times per Week Seatbelt Use: always Sunscreen Use: Yes Physical Exam Physical Exam: Constitutional: well-appearing, no acute distress, laying in pre-op hospital bed HEENT: MMM CV: rate in 70s, rhythm regular, no murmur appreciated, extremities well- perfused, no LE edema Resp: CTABL, no wheezes/rales/rhonchi appreciated, no increased work of breathing GI: soft, nondistended, mild RUQ/LUQ tenderness, moderate LUQ/LLQ tenderness, BS present Neuro: alert, oriented, no focal neurologic deficit appreciated Results & Data Results & Data ([facility]) Vital Signs (Past 12 Hours) Vital Signs Temp Pulse Resp BP BP Pulse Ox O2 Del Method 06/28/22 18:01 20 132/77 99 Nasal Cannula 06/28/22 18:46 95 H 19 98 Nasal Cannula 06/28/22 18:05 36.1 C L 45 L 16 174/79 H 98 Room Air O2 Flow Rate 06/28/22 18:01 2 06/28/22 18:46 2 06/28/22 18:05 Resident Activity Tracking Resident Involvement: Resident Care Provided and 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
[2022-06-28] MEDS ORDERED: ALBUTEROL HFA INHALER 8.5 GM INH ONE (20:29)
[2022-06-28] MEDS ORDERED: ACETAMINOPHEN 1,000 MG/100 ML VIAL IV ONE (21:21)
--- NOTE | 2022-06-28 21:21 | Post Operative Brief Note ---
PG Immediate Post Op with CF Date of Surgery June 28, 2022 Pre & Post Diagnosis Operation Date: 06/28/22 07:40 Pre-Op Diagnosis: Incarcerated left femoral hernia Strangulation of the small bowel I identified the patient and participated in the time-out.: Yes Procedure Operation Date: 06/28/22 07:40 Actual Procedures p left femoral hernia repair hernia Repair(Left) - Giovany Goss MD, FACS With imbrication/repair of the small bowel Surgeon Giovany Goss MD, FACS Top Executive Jose Thompson Estimated Blood Loss 10 Findings Consistent with Post-Op Diagnosis Patient had incarcerated left femoral hernia when the sac was opened the small bowel had reduced There was some ischemia of the small bowel but it did pink up and become viable Specimens Specimen Description: A. Hernia Sac Drains Jason-Dalal Drain
[2022-06-28] MEDS: fentaNYL citrate 100 MCG/2 ML VIAL IV PRN ×4 (21:56→22:11)
--- NOTE | 2022-06-28 22:00 | Anesthesiology Progress Note ---
Date of Service June 28, 2022 Anesthesia Post Procedure Vital Signs Vital Signs: Temp Pulse Resp BP BP Pulse Ox O2 Del Method 06/28/22 18:01 20 132/77 99 Nasal Cannula 06/28/22 18:46 95 H 19 98 Nasal Cannula 06/28/22 18:05 36.1 C L 45 L 16 174/79 H 98 Room Air O2 Flow Rate 06/28/22 18:01 2 06/28/22 18:46 2 06/28/22 18:05 Pain Intensity Abdomen: Pain Intensity: 10 Transfer of Care Handoff Completed per policy Notes Mental Status: alert / awake / arousable and participated in evaluation Patient Amnestic to Procedure: Yes Nausea / Vomiting: adequately controlled Pain: adequately controlled Airway Patency, RR, SpO2: stable & adequate BP & HR: stable & adequate Hydration State: stable & adequate Anesthetic Complications: no major complications apparent and Pt Satisfied with anesthetic care
--- NOTE | 2022-06-28 22:30 | Operative Report (OR) ---
DATE OF OPERATION: 06/28/2022. NAME OF OPERATION: Left femoral hernia repair with imbrication/repair of the small bowel. PREOPERATIVE DIAGNOSIS: Incarcerated left inguinal hernia. POSTOPERATIVE DIAGNOSIS: Incarcerated/strangulated left femoral hernia. STAFF SURGEON: Giovany Goss MD PILOT BOAT CAPTAIN: THI Bowman ANESTHESIA: General. DESCRIPTION OF PROCEDURE: The patient was brought in the operating room, placed on the operating table in supine position. Her abdomen and left lower quadrant prepped and draped in the usual fashion. My assistant accounting manager helped with p repping, draping, repair of the hernia and small bowel and closure of the wound. Incision was made p arallel to the inguinal ligament in the left lower quadrant, carrying dissection down. It was eviden t that this was a femoral hernia. Dissection was carried down below the inguinal ligament, identifyi ng the hernia sac which had vasculature and lymphatics associated with it. The sac was opened. Ther e were no significant contents. I was able to look into the base of the defect and I was able to see a small area of small bowel which appeared to be somewhat cyanotic. I brought it into the field, en larging the hernia defect. She did have ischemic small bowel, but it was not infarcted; it did pink up. She had an area of bruising, which I imbricated using Lembert sutures of 3-0 silk. The bowel wa s completely viable. It was placed back into the abdomen. The hernia sac was then trimmed off. Bef ore closure, I did check the bowel again; it looked very good, and at this point, it was placed back into the abdomen. We closed the sac using 2-0 Ethibond suture. The defect was then closed by bringi ng the inguinal ligament down onto the pelvic brim, being careful to keep the left common femoral vei n lateral. I imbricated this area using 0 silk suture. Ideally, we may have placed mesh, but there was some concern of infection with the ischemic small bowel and fluid. At this point, I put a 15 rou [address] Jason-Dalal drain into the wound and then closed the wound in layers using 2-0 plain suture. Th e skin was reapproximated using 4-0 nylon suture and Steri-Strips. The patient was transferred to re covery room in stable condition. Job ID: [id number]
[2022-06-28] MEDS ORDERED: ACETAMINOPHEN 325 MG TAB PO PRN (23:02)
[2022-06-28] MEDS ORDERED: HYDROmorphone INJ 0.5 MG/0.5 ML SYR IV PRN ×2 (23:02)
[2022-06-28] MEDS: LACTATED RINGER'S 1,000 ML IV SCH (23:23)
[2022-06-29] MEDS ORDERED: HYDROmorphone INJ 0.5 MG/0.5 ML SYR IV PRN (00:08)
[2022-06-29] MEDS: ACETAMINOPHEN 1,000 MG/100 ML VIAL IV SCH ×3 (00:30→16:54)
[2022-06-29] MEDS: HYDROmorphone INJ 1 MG/ML SYRINGE IV PRN ×3 (00:59→05:16)
[2022-06-29] MEDS: PIPERACILLIN/TAZOBACTAM 3.375 GM in DEXTROSE 5% 100 ML IV SCH ×3 (02:02→18:01)
--- NOTE | 2022-06-29 03:53 | Billing Data ---
Date of Service June 28, 2022 Coding Level of Care Code 23880 Inpt Consult Level 3
[2022-06-29 05:47] LABS: Appearance Urine Clear (Clear); Bacteria Urine Automated Negative (Negative); Bilirubin Urine Negative (Negative); Blood Urine Negative (Negative); Color Urine Yellow; Glucose Urine UA Negative (Negative); Ketones Urine Trace (Negative); Leukocyte Esterase Urine Trace (Negative); Nitrite Urine Negative (Negative); Protein Urine Trace (Negative); RBC Urine Automated 0-4 /hpf (0-4); Specific Gravity Urine 1.032 (1.000-1.030); Urobilinogen Urine Negative (Negative)
[2022-06-29 06:17] LABS: Hematocrit (blood only) 34.2 % (34.1-44.9); Hemoglobin 11.5 g/dl (12.0-16.0); Mean Corpuscular Hemoglobin 31.9 pg (25.0-34.0); Mean Corpuscular Hgb Conc 33.6 g/dL (32.0-36.0); Mean Corpuscular Volume 94.7 fL (80.0-100.0); Mean Platelet Volume 10.2 fL (9.4-12.3); Platelet Count 157 K/uL (130-400); RDW Coefficient of Variation 12.7 % (11.5-14.5); Red Blood Count 3.61 M/uL (3.93-5.22); White Blood Count 5.61 K/ul (4.8-10.8)
[2022-06-29 06:40] LABS: Basophils # (auto) 0.01 K/uL (0-0.2); Basophils % (auto) 0.2 %; Immature Granulocytes # (auto) 0.01 K/uL (0.00-0.02); Immature Granulocytes % (auto) 0.2 %; Lymphocytes # (auto) 0.32 K/uL (1.2-3.4); Lymphocytes % (auto) 5.7 %; Monocytes # (auto) 0.15 K/uL (0.24-0.82); Monocytes % (auto) 2.7 %; Neutrophils # (auto) 5.12 K/uL (1.4-6.5); Neutrophils % (auto) 91.2 %
--- NOTE | 2022-06-29 06:43 | Surgery Progress Note ---
Date of Service June 29, 2022 Assessment & Plan (1) History of hernia repair: Plan: Patient with incarcerated/strangulated left femoral hernia Small bowel was viable no resection Continued limited p.o. intake IV fluids and IV antibiotics Drain in place Mobilize patient Admission and Anticipated Discharge Date Admission Date: June 28, 2022 Results & Data ([facility]) Vital Signs (Past 12 Hours) Vital Signs Temp Pulse Pulse Pulse Resp BP Pulse Ox 06/29/22 06:28 36.6 C 67 18 95/57 L 94 06/29/22 01:52 36.6 C 70 16 109/63 98 06/29/22 01:46 06/29/22 01:33 36.5 C 70 16 128/67 95 06/29/22 00:50 36.6 C 73 16 122/63 97 06/29/22 00:46 60 16 119/67 97 06/28/22 23:24 36.5 C 70 16 128/67 95 06/28/22 22:37 74 18 129/72 95 06/28/22 22:20 36.5 C 83 22 145/78 H 92 06/28/22 22:10 73 20 136/69 100 06/28/22 22:00 80 20 139/90 100 06/28/22 21:50 82 16 155/80 H 100 06/28/22 21:44 36.0 C L 88 14 150/75 H 100 06/28/22 18:46 95 H 19 98 O2 Del Method O2 Flow Rate 06/29/22 06:28 Room Air 06/29/22 01:52 Nasal Cannula 2 06/29/22 01:46 Nasal Cannula 2 06/29/22 01:33 Nasal Cannula 2 06/29/22 00:50 Nasal Cannula 2 06/29/22 00:46 Nasal Cannula 2 06/28/22 23:24 Nasal Cannula 2 06/28/22 22:37 Nasal Cannula 2 06/28/22 22:20 Room Air 06/28/22 22:10 Oxymask 3 06/28/22 22:00 Oxymask 4 06/28/22 21:50 Oxymask 4 06/28/22 21:44 Oxymask 6 06/28/22 18:46 Nasal Cannula 2 PG Care Time/CCT Total # of Minutes Spent Total Time Spent with Patient: Total time spent is greater than 50% in coordination of care (as documented) at patient's floor/unit and/or counseling patient: Coding Level of Care Code None Diagnoses History of hernia repair Z98.890; Z87.19
[2022-06-29] MEDS ORDERED: diphenhydrAMINE 50 MG/ML VIAL IV STA (06:45)
[2022-06-29 06:53] LABS: Albumin Globulin Ratio 1.6 (0.9-2); Albumin Level 3.6 gm/dl (3.4-5.0); BUN Creatinine Ratio 33.9 (10-20); Bilirubin,Total 0.5 mg/dl (0.2-1.0); Calcium 8.2 mg/dl (8.5-10.1); Creatinine Clr Calc Pharmacy 90.8 ml/min; Est GFR (Non-African American) 96.6 ml/min; Globulin 2.2 gm/dl (2.5-4.0); Phosphorus 3.9 mg/dl (2.5-4.9); Potassium 4.4 mmol/L (3.5-5.1); Total Protein 5.8 gm/dl (6.0-8.3)
[2022-06-29] MEDS: PANTOprazole 40 MG TAB PO SCH (09:09)
[2022-06-29] MEDS: HEPARIN SOD 5,000 UNIT/0.5 ML VIAL SQ SCH ×2 (09:25→20:31)
[2022-06-29] MEDS: LACTATED RINGER'S 1,000 ML IV SCH ×2 (09:26→22:12)
--- NOTE | 2022-06-29 10:05 | Electrocardiogram Report ---
Test Reason : Blood Pressure : / mmHG Vent. Rate : 040 BPM Atrial Rate : 040 BPM P-R Int : 112 ms QRS Dur : 082 ms QT Int : 486 ms P-R-T Axes : 050 068 069 degrees QTc Int : 396 ms Marked sinus bradycardia Abnormal ECG When compared with ECG of 15-MAR-2019 18:50, Vent. rate has decreased BY 19 BPM Confirmed by To Ellington ([id number]) on 06/29/2022 10:04:55 AM Referred By: Provider Outside Confirmed By:To Ellington
[2022-06-29] MEDS: oxyCODONE HCL IR 5 MG TAB (IMMEDIATE RELEASE) PO PRN ×2 (15:31→20:31)
[2022-06-30] MEDS: ACETAMINOPHEN 1,000 MG/100 ML VIAL IV SCH ×3 (00:59→16:53)
[2022-06-30] MEDS: PIPERACILLIN/TAZOBACTAM 3.375 GM in DEXTROSE 5% 100 ML IV SCH ×3 (01:00→17:10)
[2022-06-30] MEDS: oxyCODONE HCL IR 5 MG TAB (IMMEDIATE RELEASE) PO PRN ×4 (05:06→23:02)
[2022-06-30] MEDS: PANTOprazole 40 MG TAB PO SCH (07:53)
[2022-06-30] MEDS: HEPARIN SOD 5,000 UNIT/0.5 ML VIAL SQ SCH ×2 (07:54→21:02)
--- NOTE | 2022-06-30 08:32 | Surgery Progress Note ---
Date of Service June 30, 2022 Assessment & Plan (1) History of hernia repair: Plan: Patient with a history of incarcerated strangulated hernia with small bowel ischemia No resection was necessary Seems to be tolerating clear liquids will advance to full liquids Continue IV antibiotics and drain Consider discharge home tomorrow possibly with the drain Admission and Anticipated Discharge Date Admission Date: June 28, 2022 Results & Data ([facility]) Vital Signs (Past 12 Hours) Vital Signs Temp Pulse Resp BP Pulse Ox O2 Del Method 06/30/22 07:26 36.6 C 47 L 16 134/81 95 Room Air 06/29/22 22:10 36.6 C 55 L 16 100/62 95 Room Air PG Care Time/CCT Total # of Minutes Spent Total Time Spent with Patient: Total time spent is greater than 50% in coordination of care (as documented) at patient's floor/unit and/or counseling patient: Coding Level of Care Code None Diagnoses History of hernia repair Z98.890; Z87.19
[2022-06-30] MEDS: LACTATED RINGER'S 1,000 ML IV SCH (11:52)
[2022-07-01] MEDS: ACETAMINOPHEN 1,000 MG/100 ML VIAL IV SCH ×2 (01:00→08:36)
[2022-07-01] MEDS: PIPERACILLIN/TAZOBACTAM 3.375 GM in DEXTROSE 5% 100 ML IV SCH ×2 (01:03→10:18)
[2022-07-01] MEDS: oxyCODONE HCL IR 5 MG TAB (IMMEDIATE RELEASE) PO PRN ×2 (04:43→10:18)
--- NOTE | 2022-07-01 06:53 | Surgery Progress Note ---
Date of Service July 01, 2022 Assessment & Plan (1) History of hernia repair: Plan: Patient with incarcerated strangulated left femoral hernia Overall doing very wellwe will advance diet to low fiber Continue IV antibiotics Drain with minimal outputwe will have it removed Change dressing Possible discharge later today-we will continue on p.o. antibiotics Admission and Anticipated Discharge Date Admission Date: June 28, 2022 Results & Data ([facility]) Vital Signs (Past 12 Hours) Vital Signs Temp Pulse Resp BP Pulse Ox O2 Del Method 06/30/22 22:09 36.7 C 60 18 130/79 93 Room Air PG Care Time/CCT Total # of Minutes Spent Total Time Spent with Patient: Total time spent is greater than 50% in coordination of care (as documented) at patient's floor/unit and/or counseling patient: Coding Level of Care Code None Diagnoses History of hernia repair Z98.890; Z87.19
[2022-07-01] MEDS: HEPARIN SOD 5,000 UNIT/0.5 ML VIAL SQ SCH (08:39)
[2022-07-01] MEDS: PANTOprazole 40 MG TAB PO SCH (08:41)
[2022-07-01 08:49] LABS: Hematocrit (blood only) 35.3 % (34.1-44.9); Hemoglobin 11.5 g/dl (12.0-16.0); Mean Corpuscular Hemoglobin 31.6 pg (25.0-34.0); Mean Corpuscular Hgb Conc 32.6 g/dL (32.0-36.0); Mean Platelet Volume 10.9 fL (9.4-12.3); Platelet Count 145 K/uL (130-400); RDW Coefficient of Variation 12.8 % (11.5-14.5); RDW Standard Deviation 45.5 fL (36.4-46.3); Red Blood Count 3.64 M/uL (3.93-5.22); White Blood Count 3.91 K/ul (4.8-10.8)
--- NOTE | 2022-07-02 20:15 | Discharge Summary ---
Date of Service July 02, 2022 Admission HPI Per Admitting Provider This is a 62-year-old female who presented to [facility] emergency department secondary to left groin pain. Patient says that she has a known left inguinal hernia that has not been problematic but approximately 3 hours prior to presentation she began to have some severe pain in the left groin. She also noted a masslike lump in the left groin that was painful to palpation. She did experience some nausea without vomiting. She denies any fevers, shakes, chills. She notes her most recent oral intake was approximately 12:00 PM today (approximately 7 hours prior to presentation to the emergency department). Patient says she has had multiple abdominal surgeries including a gastric bypass, hysterectomy, a right inguinal herniorrhaphy (mesh was utilized during this procedure she believes), and removal of a mass from her left adrenal gland. The treating clinician in the emergency department felt the patient had findings consistent with an incarcerated left inguinal hernia and therefore general surgery was asked to evaluate her for surgical intervention. In the emergency department the patient had labs including a CBC were white blood cell count, hemoglobin, hematocrit, platelet count were noted to be within normal range. Chemistry profile showed sodium and potassium were noted to be normal on [id number] labs. The patient's [id number] BUN and creatinine were also noted to be within normal range. In the emergency department the patient was noted to have episodes of bradycardia with a heart rate in the 40s. The patient does not report any chest pain, lightheadedness, dizziness, or shortness of breath. The patient's records were reviewed and she did have an echocardiogram in July 2021 that was available for my review. This study showed the patient had a 60% ejection fraction with mild mitral regurgitation. No diastolic dysfunction was noted. She was noted to have normal systolic function. At the time of my interview the patient was resting in bed. She did have some discomfort in the left inguinal region but she was in no distress. Discharge Data Consultations 06/28/22 19:30 Consult Hospitalist Stat 06/28/22 19:49 ED Decision to Admit Stat Procedures Performed Operation Date: 06/28/22 07:40 Actual Procedures p Inguinal Hernia Repair, Imbrication of the small bowel (Left) - Giovany Goss MD, [facility] Hospital Course (1) Hernia, inguinal, left: This is a 62-year-old female who was admitted to [facility] on 06/28/2022. The patient presented with abdominal pain which was worse in her left groin. Physical exam was consistent with a strangulated hernia and therefore Dr. Goss took the patient to the operating room for a hernia repair on 06/28/2022. During her postoperative course she was observed in the hospital and her diet was advanced in the appropriate fashion as her bowel function improved. Should be noted that at time of her hernia surgery no bowel resection was required. Patient was able to be discharged home on 07/01/2022. She was instructed on appropriate wound care, diet, and activity. She was instructed to follow-up with Dr. Goss in the office in approximate 1 to 2 weeks. Coding Level of Care Code None Diagnoses Hernia, inguinal, left K40.90
== END 2022-07-01 15:24 | disposition home or self-care (01) | DRG 350 ==
LOC: ED 18:01 → 3W 20:00

== ENCOUNTER 2023-09-25 17:46 | Inpatient (IN) ==
--- NOTE | 2023-09-25 17:59 | Emergency Department Note ---
Impression & Plan Syncope, Closed fracture of right hip ED Provider Note NAME: ELBERT BONDS AGE: 63 SEX: F : 1960 ARRIVES VIA: Ambulance INFORMANT: Patient, EMS ED PROVIDER(S): Constantino Mejia DO CHIEF COMPLAINT: Fall HPI: The patient is a 63-year-old female who presented to the emergency department after having a syncopal episode. The patient states that she has had URI symptoms over the last few days. She did take a home COVID test that was positive. She states that she was with family at a bowling alley. She was bowling but then started getting lightheaded and dizzy. She went outside. She felt very lightheaded and felt as though she may pass out. The patient states that she did pass out once and then got up. She started walking to her car and passed out again. She fell onto her right side. She was unable to ambulate. 911 was called and the patient arrived via ambulance. At this time she denies having any headache or neck pain. She does complain of severe right hip pain. She denies having any nausea or vomiting. She denies having any numbness in the leg. The patient states that she has a history of osteoporosis but no previous injury to the hip. ROS: See above HPI for pertinent positives & negatives. A total of 10 systems reviewed and were otherwise negative. PAST MEDICAL HISTORY: See Below PAST SURGICAL HISTORY: See Below FAMILY HISTORY: See Below SOCIAL HISTORY: See Below HOME MEDICATIONS: See Below ALLERGIES: See Below VITALS: See Below PHYSICAL EXAMINATION: GENERAL: The patient is awake and alert. She is very anxious and appears to be in severe pain EYES: The conjunctivae are clear. The pupils are round and reactive. EARS, NOSE, MOUTH AND THROAT: The nose is without any evidence of any deformity. NECK: The neck is nontender and supple. RESPIRATORY: Normal respiratory effort is noted there is no evidence of wheezing rhonchi or rales CARDIOVASCULAR: Regular rate and rhythm noted there no murmurs rubs or gallops normal S1 normal S2. GASTROINTESTINAL: The abdomen is soft. Abdomen is nontender. PELVIS: The Pelvis is stable. No tenderness to palpation is noted. BACK: No midline tenderness or or step-off noted range of motion in flexion extension as well as rotation no signs of muscle spasm noted MUSCULOSKELETAL/EXTREMITIES: The right lower extremity is externally rotated and shortened significantly. There is tenderness over the lateral aspect of the right hip. SKIN: There is no obvious evidence of any rash. Pulses are symmetric in both feet. NEUROLOGIC: Patient is awake alert and oriented x3 MEDICAL DECISION MAKING: The patient is a 63-year-old female who presented to the emergency department for an evaluation after a fall. The patient had a syncopal episode and fell onto her right side. The patient's history and physical exam appear to be consistent with a right hip fracture. This was shown on x-ray. I discussed patient's laboratory and radiographic studies with her. She was treated with IV fluids and IV pain medication in the emergency department. Her hip pain was very difficult to control. For this reason a femoral nerve block was done. This significantly improved the patient's pain. I discussed the patient's laboratory and radiographic studies with the on-call [facility] hospitalist group. They have agreed to evaluate the patient in the emergency department for further management and disposition. Triage Nursing notes reviewed. Prior medical records reviewed Vital Signs: reviewed and remarkable for no significant abnormalities Differential diagnosis: Vasovagal event, dehydration, infection, hypoglycemia, electrolyte abnormalities, cardiac sources, intracerebral event, pulmonary embolism, seizure, toxicologic, neurologic, as well as other pathologies. ER treatment provided: See below Diagnostics interpreted by me: ECG: EKG was obtained in the emergency department. My interpretation is sinus bradycardia 53 bpm. There is no ectopy. There is no acute ST segment abnormalities noted. This was compared to a tracing from June 16, 2023. No change was noted. Cardiac Monitoring: An order was placed for continuous cardiac monitoring. The monitor shows a rate of 63 bpm with sinus rhythm. Laboratory studies: As stated above and show below. Imaging studies: See below. Radiographic imaging was reviewed by myself Consultation(s): I discussed this case with Dr. Rosario who is on-call for the [facility] hospitalist group. ED COURSE: Procedures: Right femoral nerve block. Indication: Right hip fracture The patient is a 63-year-old female who presented to the emergency department after having a syncopal episode and falling onto her right side. The patient had an intertrochanteric displaced right hip fracture. She was treated with IV Dilaudid in the emergency department but did not get significant relief. For this reason consideration for a right femoral nerve block was undertaken. I discussed the patient's condition with her. I discussed the benefits and risks of this procedure with the patient. The patient verbally consented to the procedure. I discussed risks such as bleeding seizure vascular infiltration of the anesthetic and motor weakness as well as prolonged numbness. The area was prepped using Betadine. 8 mL of 0.5% bupivacaine was infiltrated over the femoral nerve lateral to the right femoral artery. A Band-Aid was placed. The patient tolerated procedure well. 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 NO PROBLEMS RECENTLY Anxiety Sleep apnea H/O. NO PROBLEMS SINCE WEIGHT LOSS Asthma FLARES UP UNTIL WITH A CHEST COLD. History of stomach ulcers Pancreatitis ~2015/2016 Osteoporosis Surgical History Hx of tooth extraction all upper teeth removed 2 years ago [place] teeth extracted History of femoral hernia repair (06/28/22) Left femoral hernia repair with imbrication/repair of the small bowel. Dr. Goss History of hernia repair H/O cosmetic surgery bilateral brachioplasty (arm lift) Status post gastric bypass for obesity S/P JAQUAN-BSO History of laparoscopy History of bilateral tubal ligation H/O foot surgery RIGHT TARSAL TUNNEL RELEASE History of carpal tunnel release BILATERAL History of arthroscopy RIGHT KNEE History of ERCP History of esophagogastroduodenoscopy (EGD) History of colonoscopy Hx of hernia repair RIGHT INGUINAL Family History Father Cancer Mother Breast cancer Unknown Breast cancer Grandfather No problems noted. Grandfather (Maternal) Lung cancer Grandfather (Paternal) Lung cancer Other No family history of adverse response to anesthesia Denies family history of Ovarian cancer Prostate cancer Crohn's disease Myocardial infarction Colorectal cancer Social History Smoking Status: Never smoker Tobacco Type: Cigarettes Cigarettes Per Day: 30 CIGS X 37 YEARS; Second Hand Exposure: No; Do You Dip or Chew Tobacco: No; Hx Alcohol Use: Yes (not anymore-very little when she was younger) Hx Substance Use: Yes (used to have medical card) Last Used Substance Other:: few days ago Preferred Language: Cymraes Communication Ability: Effective Visual Impairment: No Limitations Hearing Ability: Normal Dry Cleaning Manager Required: No Beliefs That Will Affect Care: None marital status: Single Current Living Situation: Alone current occupational status: employed Feels Safe at Home: Yes Childhood Exposure to Second-Hand Smoke: Yes Dental Care, Regularly: Yes Physical Activity Frequency: 3-4 Times per Week Seatbelt Use: always Sunscreen Use: Yes Assistive Devices: None Allergies Allergies Allergy/AdvReac Type Severity Reaction Status Date / Time adhesive Allergy Intermediate RASH Verified 09/25/23 19:03 duloxetine [From Cymbalta] AdvReac Intermediate "made me Verified 09/25/23 19:03 feel bad" gabapentin AdvReac Intermediate VISUAL Verified 09/25/23 19:03 DISTURBANCES Home Meds Home Medications Medication Instructions Recorded Confirmed calcium carbonate 600 mg-vitamin 2 tab PO QAM 10/21/18 09/25/23 D3 10 mcg (400 unit) tablet (Calcium 600 + D(3)) cyanocobalamin (vitamin B-12) 1,000 mcg IM MONTHLY 10/21/18 09/25/23 1,000 mcg/mL injection solution pediatric multivitamin no.76 2 tab PO QAM 07/07/23 09/25/23 (Flintstones Complete chewable tablet) Previous Rx's Medication Instructions Recorded pantoprazole 40 mg tablet,delayed 40 mg PO QAM #90 tabs 09/07/23 release tramadol 50 mg tablet 50 mg PO DAILY PRN Pain #30 tabs 09/17/23 hydrocodone-homatropine 5 mg-1.5 5 ml PO Q6H PRN cough #200 mL 09/21/23 mg/5 mL (5 mL) oral syrup (Hycodan) nirmatrelvir 300 mg (150 mg See Rx Instructions PO .COMPLEX 09/21/23 x2)-ritonavir 100 mg tablet,dose #30 ea pack (Paxlovid) Results & Data (ED) Vital Signs Vital Signs - 24 hr 09/25/23 17:56 09/25/23 17:56 09/25/23 17:57 Temperature 36.9 C Temperature Source Oral Pulse Rate 53 L 51 L 48 L Pulse Rate [Apical] Pulse Rate from SpO2 Sensor 51 L Respiratory Rate 19 16 Respiratory Effort / Characteristics Non-Labored Respiratory Depth Normal Respiratory Pattern Regular Blood Pressure 136/90 Blood Pressure [Left Arm] Blood Pressure Mean 105 Blood Pressure Mean [Left Arm] Pulse Oximetry 98 98 Oxygen Delivery Method Room Air Oxygen Flow Rate Sepsis Recent Fever Within 48 Hours No Sepsis New/Unexplained Change in Mental Status No Sepsis Action Taken by Nursing No Action Required 09/25/23 18:00 09/25/23 18:05 09/25/23 18:10 Temperature Temperature Source Pulse Rate 52 L 56 L Pulse Rate [Apical] 56 L Pulse Rate from SpO2 Sensor 53 L 54 L Respiratory Rate 16 13 19 Respiratory Effort / Characteristics Non-Labored Respiratory Depth Normal Respiratory Pattern Blood Pressure Blood Pressure [Left Arm] 136/90 Blood Pressure Mean Blood Pressure Mean [Left Arm] 105 Pulse Oximetry 98 95 92 Oxygen Delivery Method Room Air Oxygen Flow Rate Sepsis Recent Fever Within 48 Hours Sepsis New/Unexplained Change in Mental Status Sepsis Action Taken by Nursing 09/25/23 18:20 09/25/23 18:30 09/25/23 18:30 Temperature Temperature Source Pulse Rate 58 L 62 Pulse Rate [Apical] Pulse Rate from SpO2 Sensor 58 L 66 Respiratory Rate 12 20 Respiratory Effort / Characteristics Respiratory Depth Respiratory Pattern Blood Pressure Blood Pressure [Left Arm] Blood Pressure Mean Blood Pressure Mean [Left Arm] Pulse Oximetry 98 88 L 98 Oxygen Delivery Method Room Air Oxygen Flow Rate Sepsis Recent Fever Within 48 Hours Sepsis New/Unexplained Change in Mental Status Sepsis Action Taken by Nursing 09/25/23 18:37 09/25/23 18:40 09/25/23 18:50 Temperature Temperature Source Pulse Rate 68 58 L Pulse Rate [Apical] Pulse Rate from SpO2 Sensor 65 59 L Respiratory Rate 18 13 Respiratory Effort / Characteristics Respiratory Depth Respiratory Pattern Blood Pressure 105/64 Blood Pressure [Left Arm] Blood Pressure Mean 77 Blood Pressure Mean [Left Arm] Pulse Oximetry 92 99 98 Oxygen Delivery Method Nasal Cannula Oxygen Flow Rate 2 Sepsis Recent Fever Within 48 Hours Sepsis New/Unexplained Change in Mental Status Sepsis Action Taken by Nursing 09/25/23 20:31 Temperature Temperature Source Pulse Rate Pulse Rate [Apical] 63 Pulse Rate from SpO2 Sensor Respiratory Rate 20 Respiratory Effort / Characteristics Non-Labored Respiratory Depth Normal Respiratory Pattern Blood Pressure Blood Pressure [Left Arm] 120/72 Blood Pressure Mean Blood Pressure Mean [Left Arm] 88 Pulse Oximetry 100 Oxygen Delivery Method Nasal Cannula Oxygen Flow Rate 0 Sepsis Recent Fever Within 48 Hours Sepsis New/Unexplained Change in Mental Status Sepsis Action Taken by [facility] Medications Current Medication List: was personally reviewed by me Laboratory Data Attestation: I reviewed the patient's lab results. 09/25/23 18:01 09/25/23 18:01 Lab Results 09/25/23 09/25/23 Range/Units 18:01 20:06 WBC 2.63 L (4.8-10.8) K/ul RBC 4.28 (4.20-5.40) M/uL Hgb 13.3 (12.0-16.0) g/dl Hct 40.2 (37.0-47.0) % MCV 93.9 (80.0-100.0) fL MCH 31.1 (25.0-34.0) pg MCHC 33.1 (32.0-36.0) g/dL RDW Std Deviation 43.0 (36.4-46.3) fL RDW Coeff of Michelle 12.4 (11.5-14.5) % Plt Count 174 (130-400) K/uL MPV 10.8 (9.4-12.4) fL Immature Gran % (Auto) 0.4 % Neut % (Auto) 56.2 % Lymph % (Auto) 33.5 % Hall % (Auto) 9.1 % Eos % (Auto) 0.4 % Baso % (Auto) 0.4 % Neut # (Auto) 1.48 (1.40-6.50) K/uL Lymph # (Auto) 0.88 L (1.20-3.40) K/uL Hall # (Auto) 0.24 (0.11-0.59) K/uL Eos # (Auto) 0.01 (0.00-0.50) K/uL Baso # (Auto) 0.01 (0.00-0.20) K/uL Immature Gran # (Auto) 0.01 (0.01-0.20) K/uL PT 10.2 (9.0-12.0) Seconds INR 0.9 (0.9-1.1) APTT 25 (21-31) Seconds PTT Ratio 0.9 Sodium 137 (136-145) mmol/L Potassium 3.9 (3.5-5.1) mmol/L Chloride 104 (98-107) mmol/L Carbon Dioxide 27 (21-32) mmol/L Anion Gap 6 (3-11) BUN 15 (6-23) mg/dl Creatinine 0.70 (0.6-1.2) mg/dl Est Cr Clr Drug Dosing 82.5 ml/min Est GFR ( Amer) 106.9 ml/min Est GFR (Non-Af Amer) 92.2 ml/min BUN/Creatinine Ratio 21.4 H (10-20) Glucose 111 H (70-99(Fasting)) mg/dl Calcium 8.3 L (8.6-10.3) mg/dl Total Bilirubin 0.5 (0.2-1.0) mg/dl AST 35 (13-39) U/L ALT 22 (7-52) U/L Alkaline Phosphatase 70 (34-104) U/L Troponin I High Sens 2.6 (0-14) pg/ml Total Protein 6.6 (6.0-8.3) gm/dl Albumin 3.9 (3.4-5.0) gm/dl Globulin 2.7 (2.5-4.0) gm/dl Albumin/Globulin Ratio 1.4 (0.9-2) Lipase 21 (11-82) U/L Urine Color Dark Yellow Urine Appearance Slightly Cloudy (Clear) Urine pH 6.0 (4.5-7.5) Ur Specific [place] >= 1.030 (1.000-1.030) Urine Protein 1+ H (Negative) Urine Glucose (UA) Negative (Negative) Urine Ketones Trace H (Negative) Urine Blood Negative (Negative) Urine Nitrite Negative (Negative) Urine Bilirubin Negative (Negative) Urine Urobilinogen Negative (Negative) Ur Leukocyte Esterase Trace H (Negative) Urine RBC 0-4 (0-4) /hpf Urine WBC 10-30 H (0-5) /hpf Ur Epithelial Cells 10-20 H (0-5) /lpf Urine Bacteria 1+ H (Negative) Hyaline Casts 0-5 (0-5) /lpf Urine Mucus Present A (None Prsent) Administered Medications Hydromorphone HCl (Hydromorphone Inj 0.5 Mg/0.5 Ml Syr) 0.5 mg IV Q15M PRN PRN Reason: Pain Stop: 10/09/23 17:53 Last Admin: 09/25/23 20:31 Dose: 0.5 mg Documented By: Admin: 09/25/23 20:00 Dose: 0.5 mg Documented By: Admin: 09/25/23 19:00 Dose: 0.5 mg Documented By: Admin: 09/25/23 18:25 Dose: 0.5 mg Documented By: Admin: 09/25/23 18:14 Dose: 0.5 mg Documented By: Admin: 09/25/23 18:00 Dose: 0.5 mg Documented By: KINGSTON Discontinued Medications Bupivacaine HCl (Bupivacaine 0.5 % 5 Mg/1 Ml Mpf 30ml Vial) 10 ml INFIL NOW ONE Stop: 09/25/23 18:36 Last Admin: 09/25/23 18:48 Dose: 10 ml Documented By: BERNARDO Ondansetron HCl (Ondansetron Inj 2 Mg/Ml 2 Ml Vial) 4 mg IV NOW STA Stop: 09/25/23 17:55 Last Admin: 09/25/23 18:00 Dose: 4 mg Documented By: KINGSTON Imaging Data Attestation: I personally reviewed and interpreted this imaging study as follows: My Impression: CT of the brain was obtained in the emergency department. My interpretation is no intracranial hemorrhage or mass effect, final report below. 1 view chest x-ray was obtained in the emergency department. My interpretation is no free air or definite infiltrate, final report below. X-ray of the right hip and pelvis were obtained in the emergency department. My interpretation is intertrochanteric right hip fracture, final report below Radiologist's Impression: Cervical Spine CT 09/25/23 17:53 CT cervical spine wo con CT DOSE: 1079.39 mGy.cm CLINICAL HISTORY: 63 years-old Female with fall. Acute neck injury status post fall COMPARISON: Head CT of same day TECHNIQUE: Multiple axial CT images of the cervical spine were obtained without contrast. A dose lowering technique was utilized adhering to the principles of ALARA. FINDINGS: Multilevel degenerative changes of the cervical spine including moderate disc space narrowing at C5-C6. Mostly mild multilevel facet arthrosis. The cervical soft tissues appear unremarkable. Pulmonary emphysema. No pneumothorax. Mild mucosal thickening of the imaged paranasal sinuses. Calcified plaque of the carotid bulbs. IMPRESSION: No acute cervical spine fracture or subluxation. ACT 112: Negative or not required by law. The above report was generated using voice recognition software. It may contain grammatical, syntax or spelling errors. Electronically signed by: Kp Ramires M.D. 09/25/2023 7:[address] 09/25/23 17:53 CT head/brain wo con CLINICAL HISTORY: 63 years-old Female with fall. Acute head and neck trauma status post fall TECHNIQUE: Multiple axial CT images of the head were obtained without contrast. A dose lowering technique was utilized adhering to the principles of ALARA. COMPARISON: CT cervical spine of same day FINDINGS: No acute intracranial hemorrhage, midline shift, intracranial mass, hydrocephalus, territorial ischemia or abnormal extra-axial collection. Mild nonspecific white matter hypodensities, possibly representing chronic microvascular ischemic disease. The calvarium is intact. Mild mucosal thickening of the paranasal sinuses. Mastoid air cells are clear. IMPRESSION: No acute intracranial abnormality or calvarial fracture. ACT 112: Negative or not required by law. The above report was generated using voice recognition software. It may contain grammatical, syntax or spelling errors. Electronically signed by: Kp Ramires M.D. 09/25/2023 7:26 PM Hip/Pelvis X-Ray 09/25/23 17:53 XR hip RT 2V w pelvis HISTORY: 63 years-old Female fall acute right hip pain status post fall COMPARISON: CT abdomen and pelvis 06/16/2023 TECHNIQUE: AP view of the pelvis with 2 views of the right hip FINDINGS: Mild osteoarthritis of the hips. There is an acute, comminuted, impacted and displaced intratrochanteric right femoral fracture. Greater trochanteric fracture displacement measures up to 2 cm laterally. No dislocation or additional fracture. Lateral soft tissue swelling. IMPRESSION: Acute, comminuted, impacted and displaced intertrochanteric right femoral fracture. ACT 112: Negative or not required by law. The above report was generated using voice recognition software. It may contain grammatical, syntax or spelling errors. Electronically signed by: Kp Ramires M.D. 09/25/2023 6:50 PM Chest X-Ray 09/25/23 17:54 XR chest 1V portable HISTORY: 63 years-old Female fall acute chest trauma status post fall COMPARISON: CT 05/04/2023 TECHNIQUE: AP view of the chest FINDINGS: Cardiomediastinal and hilar silhouettes are within normal limits. No pneumothorax, pleural effusion or airspace consolidation. Metallic density spring projects over the right neck. Emphysema with chronic interstitial coarsening. Degenerative changes of the shoulders and spine. IMPRESSION: Emphysema without acute process of the chest. ACT 112: Negative or not required by law. The above report was generated using voice recognition software. It may contain grammatical, syntax or spelling errors. Electronically signed by: Kp Ramires M.D. 09/25/2023 6:42 PM Discharge Plan Visit Data Chief Complaint: Hip Pain Stated Complaint: FALL, HIP PAIN ED Provider: Constantino Mejia Discharge Problem: Syncope, Closed fracture of right hip Patient Disposition: Being Evaluated by Hospitalist Forms Stand Alone Forms: [facility] [place] [employer] Prescriptions Prescriptions: No Action pantoprazole 40 mg tablet,delayed release (DR/EC) 40 mg PO QAM Qty: 90 3RF tramadol 50 mg tablet 50 mg PO DAILY PRN (Reason: Pain) Qty: 30 0RF Paxlovid 300 mg (150 mg x 2)-100 mg tablets,dose pack See Rx Instructions PO .COMPLEX Qty: 30 0RF Rx Instructions: PER PT "NEVER TOOK THIS MED". take TWO 150 mg tablets of nirmatrelvir with ONE 100 mg tablet of ritonavir twice daily for 5 days PO hydrocodone-homatropine [Hycodan] 5-1.5 mg/5 mL (5 mL) syrup 5 ml PO Q6H PRN (Reason: cough) Qty: 200 0RF cyanocobalamin (vitamin B-12) 1,000 mcg/mL Solution 1,000 mcg IM MONTHLY calcium carbonate-vitamin D3 [Calcium 600 + D(3)] 600 mg(1,500mg) -400 unit Tablet 2 tab PO QAM Flintstones Complete Tablet,Chewable 2 tab PO QAM Referrals Referrals: Jan Christianson MD [Primary Care Provider] - Discharge Problem: Syncope Qualifiers: Syncope type: unspecified Qualified Code(s): R55 - Syncope and collapse Closed fracture of right hip Qualifiers: Encounter type: initial encounter Qualified Code(s): S72.001A - Fracture of unspecified part of neck of right femur, initial encounter for closed fracture
[2023-09-25] MEDS: HYDROmorphone INJ 0.5 MG/0.5 ML SYR IV PRN (18:00)
[2023-09-25] MEDS: ONDANSETRON INJ 2 MG/ML 2 ML VIAL IV STA (18:00)
[2023-09-25 18:17] LABS: Basophils # (auto) 0.01 K/uL (0.00-0.20); Basophils % (auto) 0.4 %; Eosinophils # (auto) 0.01 K/uL (0.00-0.50); Eosinophils % (auto) 0.4 %; Hematocrit (blood only) 40.2 % (37.0-47.0); Hemoglobin 13.3 g/dl (12.0-16.0); Immature Granulocytes # (auto) 0.01 K/uL (0.01-0.20); Immature Granulocytes % (auto) 0.4 %; Lymphocytes # (auto) 0.88 K/uL (1.20-3.40); Lymphocytes % (auto) 33.5 %; Mean Corpuscular Hemoglobin 31.1 pg (25.0-34.0); Mean Corpuscular Hgb Conc 33.1 g/dL (32.0-36.0); Mean Corpuscular Volume 93.9 fL (80.0-100.0); Mean Platelet Volume 10.8 fL (9.4-12.4); Monocytes # (auto) 0.24 K/uL (0.11-0.59); Monocytes % (auto) 9.1 %; Neutrophils # (auto) 1.48 K/uL (1.40-6.50); Neutrophils % (auto) 56.2 %; Platelet Count 174 K/uL (130-400); RDW Coefficient of Variation 12.4 % (11.5-14.5); Red Blood Count 4.28 M/uL (4.20-5.40); White Blood Count 2.63 K/ul (4.8-10.8)
[2023-09-25 18:32] LABS: Albumin Globulin Ratio 1.4 (0.9-2); Albumin Level 3.9 gm/dl (3.4-5.0); BUN Creatinine Ratio 21.4 (10-20); Bilirubin,Total 0.5 mg/dl (0.2-1.0); Calcium 8.3 mg/dl (8.6-10.3); Creatinine Clr Calc Pharmacy 82.5 ml/min; Est GFR (African American) 106.9 ml/min; Est GFR (Non-African American) 92.2 ml/min; Globulin 2.7 gm/dl (2.5-4.0); Potassium 3.9 mmol/L (3.5-5.1); Total Protein 6.6 gm/dl (6.0-8.3)
[2023-09-25 18:38] LABS: Troponin I High Sensitivity 2.6 pg/ml (0-14)
[2023-09-25 18:42] LABS: INR 0.9 (0.9-1.1); Partial Thromboplastin Ratio 0.9; Partial Thromboplastin Time 25 Seconds (21-31); Prothrombin Time 10.2 Seconds (9.0-12.0)
--- NOTE | 2023-09-25 18:43 | XRay Report ---
XR chest 1V portable HISTORY: 63 years-old Female fall acute chest trauma status post fall COMPARISON: CT 05/04/2023 TECHNIQUE: AP view of the chest FINDINGS: Cardiomediastinal and hilar silhouettes are within normal limits. No pneumothorax, pleural effusion o r airspace consolidation. Metallic density spring projects over the right neck. Emphysema with chroni c interstitial coarsening. Degenerative changes of the shoulders and spine. IMPRESSION: Emphysema without acute process of the chest. ACT 112: Negative or not required by law. The above report was generated using voice recognition software. It may contain grammatical, syntax o r spelling errors. Electronically signed by: Kp Ramires M.D. 09/25/2023 6:42 PM
[2023-09-25] MEDS: BUPIVACAINE 0.5 % 5 MG/1 ML MPF 30ML VIAL INFIL ONE (18:48)
--- NOTE | 2023-09-25 18:51 | XRay Report ---
XR hip RT 2V w pelvis HISTORY: 63 years-old Female fall acute right hip pain status post fall COMPARISON: CT abdomen and pelvis 06/16/2023 TECHNIQUE: AP view of the pelvis with 2 views of the right hip FINDINGS: Mild osteoarthritis of the hips. There is an acute, comminuted, impacted and displaced intratrochante mao right femoral fracture. Greater trochanteric fracture displacement measures up to 2 cm laterally. No dislocation or additional fracture. Lateral soft tissue swelling. IMPRESSION: Acute, comminuted, impacted and displaced intertrochanteric right femoral fracture. ACT 112: Negative or not required by law. The above report was generated using voice recognition software. It may contain grammatical, syntax o r spelling errors. Electronically signed by: Kp Ramires M.D. 09/25/2023 6:50 PM
--- NOTE | 2023-09-25 19:27 | CT Scan Report ---
CT head/brain wo con CLINICAL HISTORY: 63 years-old Female with fall. Acute head and neck trauma status post fall TECHNIQUE: Multiple axial CT images of the head were obtained without contrast. A dose lowering tech nique was utilized adhering to the principles of ALARA. COMPARISON: CT cervical spine of same day FINDINGS: No acute intracranial hemorrhage, midline shift, intracranial mass, hydrocephalus, territorial ischem ia or abnormal extra-axial collection. Mild nonspecific white matter hypodensities, possibly represen ting chronic microvascular ischemic disease. The calvarium is intact. Mild mucosal thickening of the paranasal sinuses. Mastoid air cells are carmencita ar. IMPRESSION: No acute intracranial abnormality or calvarial fracture. ACT 112: Negative or not required by law. The above report was generated using voice recognition software. It may contain grammatical, syntax o r spelling errors. Electronically signed by: Kp Ramires M.D. 09/25/2023 7:26 PM
--- NOTE | 2023-09-25 19:35 | CT Scan Report ---
CT cervical spine wo con CT DOSE: 1079.39 mGy.cm CLINICAL HISTORY: 63 years-old Female with fall. Acute neck injury status post fall COMPARISON: Head CT of same day TECHNIQUE: Multiple axial CT images of the cervical spine were obtained without contrast. A dose low ering technique was utilized adhering to the principles of ALARA. FINDINGS: Multilevel degenerative changes of the cervical spine including moderate disc space narrowi ng at C5-C6. Mostly mild multilevel facet arthrosis. The cervical soft tissues appear unremarkable. Pulmonary emphysema. No pneumothorax. Mild mucosal th ickening of the imaged paranasal sinuses. Calcified plaque of the carotid bulbs. IMPRESSION: No acute cervical spine fracture or subluxation. ACT 112: Negative or not required by law. The above report was generated using voice recognition software. It may contain grammatical, syntax o r spelling errors. Electronically signed by: Kp Ramires M.D. 09/25/2023 7:33 PM
--- NOTE | 2023-09-25 20:01 | History & Physical Report ---
Date of Service September 25, 2023 Assessment & Plan (1) Closed fracture of right hip: Plan: 63yo female with ground level fall x 2 resulting in acute comminuted, impacted and displaced intertrochanteric right femoral fracture. Patient neurovascularly intact. Having significant discomfort despite bupivacaine block and multiple doses of IV Dilaudid -Admit to medical -Maintain Rajan catheter -Pain control with Dilaudid PRN -PRN Narcan ordered -Continuous pulse oximetry ordered -Zofran PRN -Orthopedic Surgery consultation appreciated -Will keep patient NPO (2) Syncope: Plan: Patient reports two syncopal events today, some ongoing dizziness and vertigo. -Fall precautions -Check orthostatic VS -Will defer additional syncope workup at this time - likely secondary to Covid effects, acute illness -Meclizine PRN dizzines (3) COVID-19: Plan: Patient developed Covid-19 symptoms to 09/19/23 and tested POSITIVE on 09/21/23. She reports that her symptoms are overall improving. No fever or SOB. PCR is POSITIVE today. -Will maintain Covid isolation for now. She is on day 6 from symptom onset -Normal oxygenation - she did drop her saturations temporarily in the ER after administration of Dilaudid. Now on 2L/min. No indication for Remdesivir or Dexamethasone treatment F/E/N - Heplock. Electrolytes WNL. NPO after midnight Ppx - SCDs to bilateral LE Code - Full Dispo - Admit to medical History of Present Illness Chief Complaint: right hip fracture Primary Care Provider: Jan Christianson MD Colleen Robbins is a 63yo female presenting with right hip fracture following a ground level fall. Patient began feeling ill on 09/19/23 afternoon with cough, fever to 101.7 and fatigue. She took a home Covid-19 test on 09/21/23 which was POSITIVE. She has been overall feeling better but has had persistent brain fog as well as tinnitus and vertigo. Today she went bowling with her family. She stepped out to get some air and became dizzy and passed out. She was able to get up without difficulty and reports that she continued to walk towards her car after passing out and passed out again in the parking lot landing on her right hip. She was found down in the parking lot by her grandson. She was unable to get up due to pain so EMS was called. In the ER patient is afebrile, HD stable. She was found to have an acute comminuted, impacted and displaced intertrochanteric right femoral fracture. Patient denies chest pain, palpitations, cough, SOB, abdominal pain, nausea, vomiting, diarrhea or constipation. No urinary complaints. No additional complaints at this time. ER Course: Dilaudid 0.5mg IV x 7 doses Dilaudid 1mg IV x 1 dose Zofran 4mg IV x 1 dose Acetaminophen 1gm IV x 1 dose Bupivacaine block Allergies Allergy/AdvReac Type Severity Reaction Status Date / Time adhesive Allergy Intermediate RASH Verified 09/25/23 19:03 duloxetine [From Cymbalta] AdvReac Intermediate "made me Verified 09/25/23 19:03 feel bad" gabapentin AdvReac Intermediate VISUAL Verified 09/25/23 19:03 DISTURBANCES Home Medications Medication Instructions Recorded Confirmed Type calcium carbonate 600 mg-vitamin 2 tab PO QAM 10/21/18 09/25/23 History D3 10 mcg (400 unit) tablet (Calcium 600 + D(3)) cyanocobalamin (vitamin B-12) 1,000 mcg IM MONTHLY 10/21/18 09/25/23 History 1,000 mcg/mL injection solution pediatric multivitamin no.76 2 tab PO QAM 07/07/23 09/25/23 History (Flintstones Complete chewable tablet) pantoprazole 40 mg tablet,delayed 40 mg PO QAM #90 tabs 09/07/23 09/25/23 Rx release tramadol 50 mg tablet 50 mg PO DAILY PRN Pain #30 tabs 09/17/23 09/25/23 Rx hydrocodone-homatropine 5 mg-1.5 5 ml PO Q6H PRN cough #200 mL 09/21/23 09/25/23 Rx mg/5 mL (5 mL) oral syrup (Hycodan) nirmatrelvir 300 mg (150 mg See Rx Instructions PO .COMPLEX 09/21/23 09/25/23 Rx x2)-ritonavir 100 mg tablet,dose #30 ea pack (Paxlovid) Past Med/Surg History Medical History Abdominal pain has flare-ups occasionally 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 NO PROBLEMS RECENTLY Anxiety Sleep apnea H/O. NO PROBLEMS SINCE WEIGHT LOSS Asthma FLARES UP UNTIL WITH A CHEST COLD. History of stomach ulcers Pancreatitis ~2015/2016 Osteoporosis Surgical History Hx of tooth extraction all upper teeth removed 2 years ago [place] teeth extracted History of femoral hernia repair (06/28/22) Left femoral hernia repair with imbrication/repair of the small bowel. Dr. Goss History of hernia repair H/O cosmetic surgery bilateral brachioplasty (arm lift) Status post gastric bypass for obesity S/P JAQUAN-BSO History of laparoscopy History of bilateral tubal ligation H/O foot surgery RIGHT TARSAL TUNNEL RELEASE History of carpal tunnel release BILATERAL History of arthroscopy RIGHT KNEE History of ERCP History of esophagogastroduodenoscopy (EGD) History of colonoscopy Hx of hernia repair RIGHT INGUINAL Family History Father Cancer Mother Breast cancer Unknown Breast cancer Grandfather No problems noted. Grandfather (Maternal) Lung cancer Grandfather (Paternal) Lung cancer Other No family history of adverse response to anesthesia Denies family history of Ovarian cancer Prostate cancer Crohn's disease Myocardial infarction Colorectal cancer Social History Smoking Status: Never smoker Tobacco Type: Cigarettes Cigarettes Per Day: 30 CIGS X 37 YEARS; Second Hand Exposure: No; Do You Dip or Chew Tobacco: No; Hx Alcohol Use: Yes (not anymore-very little when she was younger) Hx Substance Use: Yes (used to have medical card) Last Used Substance Other:: few days ago Preferred Language: Bhutanese Communication Ability: Effective Visual Impairment: No Limitations Hearing Ability: Normal Dye Operator Required: No Beliefs That Will Affect Care: None marital status: Single Current Living Situation: Alone current occupational status: employed Feels Safe at Home: Yes Childhood Exposure to Second-Hand Smoke: Yes Dental Care, Regularly: Yes Physical Activity Frequency: 3-4 Times per Week Seatbelt Use: always Sunscreen Use: Yes Assistive Devices: None Review of Systems Review of Systems: All systems reviewed & are unremarkable except as noted in HPI & below Physical Exam Physical Exam: General: patient uncomfortable, NAD, non-toxic in appearance, AA&O x 4 Skin: warm, dry, intact, no rashes or lesions HEENT: NC/AT, PERRL, EOMI, anicteric sclera, conjunctiva without injection, external ear normal to inspection and nontender, nares patent, moist mucus membranes, dentition intact, no oropharyngeal lesions, neck supple, trachea midline, no LAD, no thyromegaly, no JVD Heart: +S1/S2, regular, no m/r/g Lungs: equal air entry bilaterally, no rales/rhonchi, expiratory wheezing right lung Abd: +BS, soft, NT/ND, no masses/organomegaly/ascites RLE shortened and rotated Ext: warm, 2+ pulses in UE/LE bilaterally, no clubbing/cyanosis or edema Neuro: nonfocal, patient AA&O x 4, speech intact, no facial droop, moving all extremities on command with equal strength 5/5 Results & Data Results & Data Vital Signs (Past 12 Hours) Vital Signs Temp Pulse Pulse Resp BP BP Pulse Ox 09/25/23 18:50 58 L 13 105/64 98 09/25/23 18:40 68 18 99 09/25/23 18:37 92 09/25/23 18:30 62 20 98 09/25/23 18:30 88 L 09/25/23 18:20 58 L 12 98 09/25/23 18:10 56 L 19 92 09/25/23 18:05 56 L 13 136/90 95 09/25/23 18:00 52 L 16 98 09/25/23 17:57 48 L 09/25/23 17:56 51 L 16 98 09/25/23 17:56 36.9 C 53 L 19 136/90 98 O2 Del Method O2 Flow Rate 09/25/23 18:50 09/25/23 18:40 09/25/23 18:37 Nasal Cannula 2 09/25/23 18:30 09/25/23 18:30 Room Air 09/25/23 18:20 09/25/23 18:10 02/03/24 18:05 Room Air 09/25/23 18:00 09/25/23 17:57 09/25/23 17:56 09/25/23 17:56 Room Air Laboratory Results Laboratory Results WBC 2.63 K/ul (4.8-10.8) L 09/25/23 18:01 RBC 4.28 M/uL (4.20-5.40) 09/25/23 18:01 Hgb 13.3 g/dl (12.0-16.0) 09/25/23 18:01 Hct 40.2 % (37.0-47.0) 09/25/23 18:01 MCV 93.9 fL (80.0-100.0) 09/25/23 18:01 MCH 31.1 pg (25.0-34.0) 09/25/23 18:01 MCHC 33.1 g/dL (32.0-36.0) 09/25/23 18:01 RDW Std Deviation 43.0 fL (36.4-46.3) 09/25/23 18:01 RDW Coeff of Michelle 12.4 % (11.5-14.5) 09/25/23 18:01 Plt Count 174 K/uL (130-400) 09/25/23 18:01 MPV 10.8 fL (9.4-12.4) 09/25/23 18:01 Immature Gran % (Auto) 0.4 % 09/25/23 18:01 Neut % (Auto) 56.2 % 09/25/23 18:01 Lymph % (Auto) 33.5 % 09/25/23 18:01 Quay % (Auto) 9.1 % 09/25/23 18:01 Eos % (Auto) 0.4 % 09/25/23 18:01 Baso % (Auto) 0.4 % 09/25/23 18:01 Neut # (Auto) 1.48 K/uL (1.40-6.50) 09/25/23 18:01 Lymph # (Auto) 0.88 K/uL (1.20-3.40) L 09/25/23 18:01 Quay # (Auto) 0.24 K/uL (0.11-0.59) 09/25/23 18:01 Eos # (Auto) 0.01 K/uL (0.00-0.50) 09/25/23 18:01 Baso # (Auto) 0.01 K/uL (0.00-0.20) 09/25/23 18:01 Immature Gran # (Auto) 0.01 K/uL (0.01-0.20) 09/25/23 18:01 PT 10.2 Seconds (9.0-12.0) 09/25/23 18:01 INR 0.9 (0.9-1.1) 09/25/23 18:01 APTT 25 Seconds (21-31) 09/25/23 18:01 PTT Ratio 0.9 09/25/23 18:01 Sodium 137 mmol/L (136-145) 09/25/23 18:01 Potassium 3.9 mmol/L (3.5-5.1) 09/25/23 18:01 Chloride 104 mmol/L (98-107) 09/25/23 18:01 Carbon Dioxide 27 mmol/L (21-32) 09/25/23 18:01 Anion Gap 6 (3-11) 09/25/23 18:01 BUN 15 mg/dl (6-23) 09/25/23 18:01 Creatinine 0.70 mg/dl (0.6-1.2) 09/25/23 18:01 Est Cr Clr Drug Dosing 82.5 ml/min 09/25/23 18:01 Est GFR ( Amer) 106.9 ml/min 09/25/23 18:01 Est GFR (Non-Af Amer) 92.2 ml/min 09/25/23 18:01 BUN/Creatinine Ratio 21.4 (10-20) H 09/25/23 18:01 Glucose 111 mg/dl (70-99(Fasting)) H 09/25/23 18:01 Calcium 8.3 mg/dl (8.6-10.3) L 09/25/23 18:01 Total Bilirubin 0.5 mg/dl (0.2-1.0) 09/25/23 18:01 AST 35 U/L (13-39) 09/25/23 18:01 ALT 22 U/L (7-52) 09/25/23 18:01 Alkaline Phosphatase 70 U/L (34-104) 09/25/23 18:01 Troponin I High Sens 2.6 pg/ml (0-14) 09/25/23 18:01 Total Protein 6.6 gm/dl (6.0-8.3) 09/25/23 18:01 Albumin 3.9 gm/dl (3.4-5.0) 09/25/23 18:01 Globulin 2.7 gm/dl (2.5-4.0) 09/25/23 18:01 Albumin/Globulin Ratio 1.4 (0.9-2) 09/25/23 18:01 Lipase 21 U/L (11-82) 09/25/23 18:01 Urine Color Dark Yellow 09/25/23 20:06 Urine Appearance Slightly Cloudy (Clear) 09/25/23 20:06 Urine pH 6.0 (4.5-7.5) 09/25/23 20:06 Ur Specific Vader >= 1.030 (1.000-1.030) 09/25/23 20:06 Urine Protein 1+ (Negative) H 09/25/23 20:06 Urine Glucose (UA) Negative (Negative) 09/25/23 20:06 Urine Ketones Trace (Negative) H 09/25/23 20:06 Urine Blood Negative (Negative) 09/25/23 20:06 Urine Nitrite Negative (Negative) 09/25/23 20:06 Urine Bilirubin Negative (Negative) 09/25/23 20:06 Urine Urobilinogen Negative (Negative) 09/25/23 20:06 Ur Leukocyte Esterase Trace (Negative) H 09/25/23 20:06 Urine RBC 0-4 /hpf (0-4) 09/25/23 20:06 Urine WBC 10-30 /hpf (0-5) H 09/25/23 20:06 Ur Epithelial Cells 10-20 /lpf (0-5) H 09/25/23 20:06 Urine Bacteria 1+ (Negative) H 09/25/23 20:06 Hyaline Casts 0-5 /lpf (0-5) 09/25/23 20:06 Urine Mucus Present (None Prsent) A 09/25/23 20:06 SARS-CoV-2 (PCR) POSITIVE (Negative) A* 09/25/23 21:15 Influenza Type A (PCR) Negative (Neg) 09/25/23 21:15 Influenza Type B (PCR) Negative (Neg) 09/25/23 21:15 RSV (RT-PCR) Negative (Neg) 09/25/23 21:[address] 09/25/23 17:53 CT cervical spine wo con CT DOSE: 1079.39 mGy.cm CLINICAL HISTORY: 63 years-old Female with fall. Acute neck injury status post fall COMPARISON: Head CT of same day TECHNIQUE: Multiple axial CT images of the cervical spine were obtained without contrast. A dose lowering technique was utilized adhering to the principles of ALARA. FINDINGS: Multilevel degenerative changes of the cervical spine including moderate disc space narrowing at C5-C6. Mostly mild multilevel facet arthrosis. The cervical soft tissues appear unremarkable. Pulmonary emphysema. No pneumothorax. Mild mucosal thickening of the imaged paranasal sinuses. Calcified plaque of the carotid bulbs. IMPRESSION: No acute cervical spine fracture or subluxation. ACT 112: Negative or not required by law. The above report was generated using voice recognition software. It may contain grammatical, syntax or spelling errors. Electronically signed by: Kp Ramires M.D. 09/25/2023 7:[address] 09/25/23 17:53 CT head/brain wo con CLINICAL HISTORY: 63 years-old Female with fall. Acute head and neck trauma status post fall TECHNIQUE: Multiple axial CT images of the head were obtained without contrast. A dose lowering technique was utilized adhering to the principles of ALARA. COMPARISON: CT cervical spine of same day FINDINGS: No acute intracranial hemorrhage, midline shift, intracranial mass, hydro cephalus, territorial ischemia or abnormal extra-axial collection. Mild nonspecific white matter hypodensities, possibly representing chronic microvascular ischemic disease. The calvarium is intact. Mild mucosal thickening of the paranasal sinuses. Mastoid air cells are clear. IMPRESSION: No acute intracranial abnormality or calvarial fracture. ACT 112: Negative or not required by law. The above report was generated using voice recognition software. It may contain grammatical, syntax or spelling errors. Electronically signed by: Kp Ramires M.D. 09/25/2023 7:26 PM Hip/Pelvis X-Ray 09/25/23 17:53 XR hip RT 2V w pelvis HISTORY: 63 years-old Female fall acute right hip pain status post fall COMPARISON: CT abdomen and pelvis 06/16/2023 TECHNIQUE: AP view of the pelvis with 2 views of the right hip FINDINGS: Mild osteoarthritis of the hips. There is an acute, comminuted, impacted and displaced intratrochanteric right femoral fracture. Greater trochanteric fracture displacement measures up to 2 cm laterally. No dislocation or additional fracture. Lateral soft tissue swelling. IMPRESSION: Acute, comminuted, impacted and displaced intertrochanteric right femoral fracture. ACT 112: Negative or not required by law. The above report was generated using voice recognition software. It may contain grammatical, syntax or spelling errors. Electronically signed by: Kp Ramires M.D. 09/25/2023 6:50 PM Chest X-Ray 09/25/23 17:54 XR chest 1V portable HISTORY: 63 years-old Female fall acute chest trauma status post fall COMPARISON: CT 05/04/2023 TECHNIQUE: AP view of the chest FINDINGS: Cardiomediastinal and hilar silhouettes are within normal limits. No pneumothorax, pleural effusion or airspace consolidation. Metallic density spring projects over the right neck. Emphysema with chronic interstitial coarsening. Degenerative changes of the shoulders and spine. IMPRESSION: Emphysema without acute process of the chest. ACT 112: Negative or not required by law. The above report was generated using voice recognition software. It may contain grammatical, syntax or spelling errors. Electronically signed by: Kp Ramires M.D. 09/25/2023 6:42 PM ECG Additional Comments: EKG per my interpretation - sinus bradycardia at 53bpm, normal axis, AA=449, QRS=84, OYg=141, no acute ischemic changes PG Care Time/CCT Total # of Minutes Spent Total Time Spent with Patient: Total time spent is greater than 50% in coordination of care (as documented) at patient's floor/unit and/or counseling patient: Coding Level of Care Code 46885 INT INP/OBS CARE 255MIN Diagnoses Closed fracture of right hip S72.001A Encounter type: initial encounter Syncope R55 Syncope type: unspecified COVID-19 U07.1 (1) Closed fracture of right hip Encounter type: initial encounter Qualified Code(s): S72.001A - Fracture of unspecified part of neck of right femur, initial encounter for closed fracture (2) Syncope Syncope type: unspecified Qualified Code(s): R55 - Syncope and collapse
[2023-09-25 20:40] LABS: Appearance Urine Slightly Cloudy (Clear); Bilirubin Urine Negative (Negative); Blood Urine Negative (Negative); Glucose Urine UA Negative (Negative); Ketones Urine Trace (Negative); Leukocyte Esterase Urine Trace (Negative); Nitrite Urine Negative (Negative); Protein Urine 1+ (Negative); Specific Gravity Urine >= 1.030 (1.000-1.030); Urobilinogen Urine Negative (Negative)
[2023-09-25 20:43] LABS: Color Urine Dark Yellow
[2023-09-25 20:57] LABS: Bacteria Urine 1+ (Negative); Hyaline Casts Urine 0-5 /lpf (0-5); Mucus Urine Present (None Prsent); RBC Urine 0-4 /hpf (0-4)
[2023-09-25] MEDS: ACETAMINOPHEN 1,000 MG/100 ML VIAL IV STA (21:36)
[2023-09-25 22:00] LABS: Influenza A virus by PCR Negative (Neg); Influenza B virus by PCR Negative (Neg); RSV by PCR Negative (Neg)
[2023-09-25 22:04] LABS: SARS CoV2 RNA(COVID-19) Ceph POSITIVE (Negative)
[2023-09-25] MEDS: HYDROmorphone INJ 1 MG/ML SYRINGE IV STA (22:08)
[2023-09-25] MEDS ORDERED: ONDANSETRON INJ 2 MG/ML 2 ML VIAL IV PRN (23:22)
[2023-09-25] MEDS ORDERED: ALBUTEROL HFA 8 GM INHALER INH PRN (23:22)
[2023-09-25] MEDS ORDERED: MECLIZINE HCL 25 MG TAB PO PRN (23:22)
[2023-09-25] MEDS ORDERED: MAGNESIUM HYDROXIDE SUSP 30 ML UDC PO PRN (23:22)
[2023-09-25] MEDS ORDERED: HYDROmorphone INJ 0.5 MG/0.5 ML SYR IV PRN (23:22)
[2023-09-25] MEDS ORDERED: NALOXONE HCL 0.4 MG/1 ML VIAL/CARP IV PRN ×2 (23:22)
[2023-09-25] MEDS ORDERED: bisacodyL 10 MG SUPP PR PRN (23:22)
[2023-09-26] MEDS: HYDROmorphone INJ 0.5 MG/0.5 ML SYR IV PRN (00:07)
[2023-09-26] MEDS: ACETAMINOPHEN 325 MG TAB PO PRN (00:08)
[2023-09-26] MEDS: DOCUSATE SODIUM 100 MG CAP PO SCH (00:10)
[2023-09-26] MEDS: D5W AND 1/2NSS 1,000 ML IV SCH (00:17)
[2023-09-26] MEDS: LORazepam 0.5 MG TAB PO PRN (01:17)
[2023-09-26] MEDS: HYDROmorphone INJ 1 MG/ML SYRINGE IV STA (05:16)
[2023-09-26] MEDS: PANTOprazole 40 MG TAB PO SCH (08:37)
--- NOTE | 2023-09-26 08:42 | Electrocardiogram Report ---
Test Reason : Blood Pressure : / mmHG Vent. Rate : 053 BPM Atrial Rate : 053 BPM P-R Int : 148 ms QRS Dur : 084 ms QT Int : 452 ms P-R-T Axes : 062 066 068 degrees QTc Int : 424 ms Sinus bradycardia Otherwise normal ECG When compared with ECG of 16-JUN-2023 01:52, No significant change was found Confirmed by To Ellington ([id number]) on 09/26/2023 8:42:14 AM Referred By: REFERRED SELF Confirmed By:To Ellington
--- NOTE | 2023-09-26 09:20 | Orthopedic Consultation ---
Date of Consultation September 26, 2023 Assessment & Plan (1) Intertrochanteric fracture of right hip: Plan I discussed findings and treatment with her. Given the significantly displaced hip fracture, recommendation for surgical treatment. I discussed with the hospitalist, Dr. Drake who does feel she is cleared for surgical treatment. Will plan for: 1. right intertrochanteric hip nail Will plan for surgical treatment today if possible. Risk benefits reasonable outcomes and expectations have been discussed. Risks have been discussed including but not limited to infection stiffness loss of motion failure to improve hardware cut out, difficulty with ambulation, etc. History of Present Illness Reason for Consultation: Right intertrochanteric fracture of the hip Requesting Physician: Hospitalist, Dr. Rosario Attending Physician: Terrance Briggs MD History of Present Illness Is a female who sustained a fall with a syncopal episode last night. She is complains of pain and inability to bear weight in the right hip. Complains of fairly severe pain and some numbness over the top of the foot. She states she has had several syncopal episodes due to COVID. Allergies Allergy/AdvReac Type Severity Reaction Status Date / Time adhesive Allergy Intermediate RASH Verified 09/25/23 19:03 duloxetine [From Cymbalta] AdvReac Intermediate "made me Verified 09/25/23 19:03 feel bad" gabapentin AdvReac Intermediate VISUAL Verified 09/25/23 19:03 DISTURBANCES Home Medications Medication Instructions Recorded Confirmed Type calcium carbonate 600 mg-vitamin 2 tab PO QAM 10/21/18 09/25/23 History D3 10 mcg (400 unit) tablet (Calcium 600 + D(3)) cyanocobalamin (vitamin B-12) 1,000 mcg IM MONTHLY 10/21/18 09/25/23 History 1,000 mcg/mL injection solution pediatric multivitamin no.76 2 tab PO QAM 07/07/23 09/25/23 History (Flintstones Complete chewable tablet) pantoprazole 40 mg tablet,delayed 40 mg PO QAM #90 tabs 09/07/23 09/25/23 Rx release tramadol 50 mg tablet 50 mg PO DAILY PRN Pain #30 tabs 09/17/23 09/25/23 Rx hydrocodone-homatropine 5 mg-1.5 5 ml PO Q6H PRN cough #200 mL 09/21/23 09/25/23 Rx mg/5 mL (5 mL) oral syrup (Hycodan) nirmatrelvir 300 mg (150 mg See Rx Instructions PO .COMPLEX 09/21/23 09/25/23 Rx x2)-ritonavir 100 mg tablet,dose #30 ea pack (Paxlovid) Patient History Medical History Abdominal pain has flare-ups occasionally Adrenal mass hx-removed whole gland and mass spring/summer of 2021, [facility] [place] Left groin mass hx-removed w/adrenal gland Chest pain radiating to arm resolved-had testing, no findings>seems to come from anxiety Tubular adenoma of colon GERD (gastroesophageal reflux disease) H/O. NO PROBLEMS RECENTLY Anxiety Sleep apnea H/O. NO PROBLEMS SINCE WEIGHT LOSS Asthma FLARES UP UNTIL WITH A CHEST COLD. History of stomach ulcers Pancreatitis ~2015/2016 Osteoporosis Surgical History Hx of tooth extraction all upper teeth removed 2 years ago [place] teeth extracted History of femoral hernia repair (06/28/22) Left femoral hernia repair with imbrication/repair of the small bowel. Dr. Goss History of hernia repair H/O cosmetic surgery bilateral brachioplasty (arm lift) Status post gastric bypass for obesity S/P JAQUAN-BSO History of laparoscopy History of bilateral tubal ligation H/O foot surgery RIGHT TARSAL TUNNEL RELEASE History of carpal tunnel release BILATERAL History of arthroscopy RIGHT KNEE History of ERCP History of esophagogastroduodenoscopy (EGD) History of colonoscopy Hx of hernia repair RIGHT INGUINAL Family History Father Cancer Mother Breast cancer Unknown Breast cancer Grandfather No problems noted. Grandfather (Maternal) Lung cancer Grandfather (Paternal) Lung cancer Other No family history of adverse response to anesthesia Denies family history of Ovarian cancer Prostate cancer Crohn's disease Myocardial infarction Colorectal cancer Social History Smoking Status: Former smoker Tobacco Type: Cigarettes Cigarettes Per Day: 30 CIGS X 37 YEARS; Second Hand Exposure: No; Do You Dip or Chew Tobacco: No; Hx Alcohol Use: No Hx Substance Use: Yes Last Used Substance Other:: few days ago Preferred Language: [place] Communication Ability: Effective Visual Impairment: No Limitations Hearing Ability: Normal Sql Developer Dba Required: No Beliefs That Will Affect Care: None marital status: Single Current Living Situation: Other Current Living Situation Comment: 2 roommates current occupational status: employed Feels Safe at Home: Yes Safety Concerns: Feels Safe At This Time Childhood Exposure to Second-Hand Smoke: Yes Dental Care, Regularly: Yes Physical Activity Frequency: 3-4 Times per Week Seatbelt Use: always Sunscreen Use: Yes Assistive Devices: None Physical Exam Musculoskeletal: Right lower extremity exam: Her leg is shortened and externally rotated. She has pain with logroll of the hip. She can flex and extend the toes to a small degree but it exam is significantly limited due to discomfort. She has no open injuries. Results & Data Vital Signs (Past 12 Hours) Vital Signs Temp Pulse Pulse Resp BP Pulse Ox O2 Del Method 09/26/23 08:16 36.5 C 64 17 105/67 94 Room Air 09/26/23 01:01 Nasal Cannula 09/25/23 23:27 36.4 C L 66 18 125/76 94 Nasal Cannula 09/25/23 22:08 55 L 13 108/65 98 Nasal Cannula 09/25/23 21:41 59 L 14 113/72 98 Nasal Cannula 09/25/23 21:22 65 19 112/70 98 Nasal Cannula O2 Flow Rate 09/26/23 08:16 09/26/23 01:01 2 09/25/23 23:27 2 09/25/23 22:08 2 09/25/23 21:41 2 09/25/23 21:22 2 Diagnostic Findings Reviewed AP pelvis and radiographs of the femur. These show displaced intertrochanteric hip fracture. There is fracture extension line towards the greater trochanter at the basicervical region. The lesser troches is detached.
[2023-09-26] MEDS ORDERED: HYDROmorphone INJ 0.5 MG/0.5 ML SYR IV PRN ×2 (10:04→19:33)
[2023-09-26] MEDS ORDERED: MIDAZOLAM HCL 1 MG/ML 2ML VIAL ONE ×2 (10:04→10:05)
[2023-09-26] MEDS ORDERED: fentaNYL citrate PF 100 MCG/2 ML VIAL ONE (10:04)
[2023-09-26] MEDS ORDERED: PROPOFOL IV EMULSION 10 MG/ML 20 ML VIAL IV ONE (10:04)
--- NOTE | 2023-09-26 10:06 | Anesthesiology Consultation ---
Date of Service September 26, 2023 Assessment & Plan Chart Review Chart Review: Acceptable Risk for Surgery and Patient NOT seen in Pre Admission Testing Consults Requested none ASA ASA3 Proposed Anesthesia Anesthesia Type: MAC Spinal History Height/Weight Height: 5 ft 4.8 in Weight: 74.1 kg Allergies Allergy/AdvReac Type Severity Reaction Status Date / Time adhesive Allergy Intermediate RASH Verified 09/25/23 19:03 duloxetine [From Cymbalta] AdvReac Intermediate "made me Verified 09/25/23 19:03 feel bad" gabapentin AdvReac Intermediate VISUAL Verified 09/25/23 19:03 DISTURBANCES Medications Home Medications Medication Instructions Recorded Confirmed Last Taken calcium carbonate 600 mg-vitamin 2 tab PO QAM 10/21/18 09/25/23 09/25/23 D3 10 mcg (400 unit) tablet (Calcium 600 + D(3)) cyanocobalamin (vitamin B-12) 1,000 mcg IM MONTHLY 10/21/18 09/25/23 07/06/23 1,000 mcg/mL injection solution pediatric multivitamin no.76 2 tab PO QAM 07/07/23 09/25/23 09/25/23 (Flintstones Complete chewable tablet) pantoprazole 40 mg tablet,delayed 40 mg PO QAM #90 tabs 09/07/23 09/25/23 09/25/23 release tramadol 50 mg tablet 50 mg PO DAILY PRN Pain #30 tabs 09/17/23 09/25/23 Unknown hydrocodone-homatropine 5 mg-1.5 5 ml PO Q6H PRN cough #200 mL 09/21/23 09/25/23 Unknown mg/5 mL (5 mL) oral syrup (Hycodan) nirmatrelvir 300 mg (150 mg See Rx Instructions PO .COMPLEX 09/21/23 09/25/23 Unknown x2)-ritonavir 100 mg tablet,dose #30 ea pack (Paxlovid) Active Medications Generic Name Dose Route Start Last Admin Trade Name Freq PRN Reason Stop Dose Admin Acetaminophen 650 mg 09/25/23 23:22 09/26/23 00:08 Acetaminophen 325 Mg Tab PO 10/25/23 23:21 650 mg Q4H PRN Administration pain/fever Docusate Sodium 100 mg 09/25/23 23:22 09/26/23 08:37 Docusate Sodium 100 Mg Cap PO 10/25/23 23:21 Not Given BID NATHEN Dextrose/Sodium Chloride 1,000 mls @ 100 mls/hr 09/25/23 23:22 09/26/23 00:17 D5w And 1/2nss IV 09/26/23 19:21 100 mls/hr .Q10H NATHEN Administration Lorazepam 0.5 mg 09/26/23 00:47 09/26/23 01:17 Lorazepam 0.5 Mg Tab PO 10/26/23 00:46 0.5 mg HS PRN Administration Anxiety Pantoprazole Sodium 40 mg 09/26/23 09:00 09/26/23 08:37 Pantoprazole 40 Mg Tab PO 10/26/23 08:59 Not Given QAM NATHEN Past Medical History Medical History Abdominal pain has flare-ups occasionally Adrenal mass hx-removed whole gland and mass spring/summer of 2021, [facility] [place] Left groin mass hx-removed w/adrenal gland Chest pain radiating to arm resolved-had testing, no findings>seems to come from anxiety Tubular adenoma of colon GERD (gastroesophageal reflux disease) H/O. NO PROBLEMS RECENTLY Anxiety Sleep apnea H/O. NO PROBLEMS SINCE WEIGHT LOSS Asthma FLARES UP UNTIL WITH A CHEST COLD. History of stomach ulcers Pancreatitis ~2015/2016 Osteoporosis Emphysema ASCVD Aorta, iliac arteries and coronary arteries NIDDM Exercise / Class Metabolic Activity III < 4 Walking/Shop/Light housework Past Family History Family History Father Cancer Mother Breast cancer Unknown Breast cancer Grandfather No problems noted. Grandfather (Maternal) Lung cancer Grandfather (Paternal) Lung cancer Other No family history of adverse response to anesthesia Denies family history of Ovarian cancer Prostate cancer Crohn's disease Myocardial infarction Colorectal cancer Past Surgical History Surgical History Hx of tooth extraction all upper teeth removed 2 years ago [place] teeth extracted History of femoral hernia repair (06/28/22) Left femoral hernia repair with imbrication/repair of the small bowel. Dr. Goss History of hernia repair H/O cosmetic surgery bilateral brachioplasty (arm lift) Status post gastric bypass for obesity S/P JAQUAN-BSO History of laparoscopy History of bilateral tubal ligation H/O foot surgery RIGHT TARSAL TUNNEL RELEASE History of carpal tunnel release BILATERAL History of arthroscopy RIGHT KNEE History of ERCP History of esophagogastroduodenoscopy (EGD) History of colonoscopy Hx of hernia repair RIGHT INGUINAL Past Anesthesia History No Hx of Anesthesia Complications and No Family Hx of Anesthesia Complications History of PONV No Hx of PONV and No Hx of Motion Sickness Social History Smoking Status: Former smoker tobacco type: cigarettes Smoking cigarettes per day: 30 CIGS X 37 YEARS Do You Dip or Chew Tobacco: No Hx Alcohol Use: No Hx Substance Use: Yes substance use type: marijuana Last Used Substance Other:: few days ago Physical Exam Vital Signs Last Vital Signs Temp 36.5 C 09/26/23 08:16 Pulse 64 09/26/23 08:16 Resp 17 09/26/23 08:16 BP 105/67 09/26/23 08:16 Pulse Ox 94 09/26/23 08:16 O2 Del Method Room Air 09/26/23 08:16 O2 Flow Rate 2 09/26/23 01:01 Testing Laboratory Results 09/25/23 18:01 09/25/23 18:01 PT 10.2 Seconds (9.0-12.0) 09/25/23 18:01 INR 0.9 (0.9-1.1) 09/25/23 18:01 APTT 25 Seconds (21-31) 09/25/23 18:01 Urine Color Dark Yellow 09/25/23 20:06 Urine Appearance Slightly Cloudy (Clear) 09/25/23 20:06 Urine pH 6.0 (4.5-7.5) 09/25/23 20:06 Ur Specific [place] >= 1.030 (1.000-1.030) 09/25/23 20:06 Urine Protein 1+ (Negative) H 09/25/23 20:06 Urine Glucose (UA) Negative (Negative) 09/25/23 20:06 Urine Ketones Trace (Negative) H 09/25/23 20:06 Urine Nitrite Negative (Negative) 09/25/23 20:06 Ur Leukocyte Esterase Trace (Negative) H 09/25/23 20:06 Urine RBC 0-4 /hpf (0-4) 09/25/23 20:06 Urine WBC 10-30 /hpf (0-5) H 09/25/23 20:06 Ur Epithelial Cells 10-20 /lpf (0-5) H 09/25/23 20:06 Electrocardiogram Date: 09/25/23 Findings: + SB @ (@ 53) Chest X-Ray Date: 09/25/23 Findings: + NAD and + other (Emphysema) Echocardiogram Date: 08/12/21 EF: 55% LV Function: normal RWMA: + none Other Findings: + atrial enlargement (LA mildly dilated) Valvular Disease: + MR (mild) TR-mild LA septum-aneurysmal
[2023-09-26] MEDS ORDERED: KETAMINE HCL 10MG/ML SYR ONE (10:08)
--- NOTE | 2023-09-26 10:15 | Hospitalist Progress Note ---
Date of Service September 26, 2023 Assessment & Plan (1) Closed fracture of right hip: Plan: 63yo female with ground level fall x 2 resulting in acute comminuted, impacted and displaced intertrochanteric right femoral fracture. - Continue marie - Pain control with Dilaudid - Consult orthopedic surgery - Plan for right intertrochanteric hip nail 09/[address] Watson -Medically optimized for surgery -Patient NPO, continue IVF -UA with 1+ bacteria, asymptomatic, follow culture (2) Syncope: Plan: Patient reports two syncopal events today, some ongoing dizziness and vertigo. -Fall precautions -Check orthostatic VS -Will defer additional syncope workup at this time - likely secondary to Covid effects, acute illness -Meclizine PRN dizzines (3) COVID-19: Plan: Patient developed Covid-19 symptoms to 09/19/23 and tested POSITIVE on 09/21/23. She reports that her symptoms are overall improving. No fever or SOB. PCR is POSITIVE today. -Will maintain Covid isolation for now. She is on day 6 from symptom onset -Normal oxygenation - she did drop her saturations temporarily in the ER after administration of Dilaudid. Now on 2L/min. No indication for Remdesivir or Dexamethasone treatment Plan Dispo: continued inpatient stay DVT proh: will defer until after OR Discussed case with Dr. Watson. Daughter updated by phone. Admission and Anticipated Discharge Date Admission Date: September 25, 2023 Subjective Patient seen lying in bed, reports pain. States pain has been uncontrolled all night and feels very isolated in her room. dx with covid - has had decreased appetite and dizziness. Did have a cough but that has subsided. Did not take paxlovid prescribed by PCP Denies urinary symptoms. reports dark yellow urine for the past few days. Syncope after diaphoresis. Went [place] the [place] to [place] off and then passed out, when she awoke she was hanging on the bars for the stairs and continued to walk to her car and passed out again in the middle of the parking lot. Known hx of osteoporosis. hx of adrenal gland removal - no issues since, not on chronic steroids Review of Systems Review of Systems: All systems reviewed & are unremarkable except as noted in Subjective Physical Exam Physical Exam: General: mild distress, grimaces in pain, but also to hold conversation , VS as above Resp: normal respiratory effort, lungs clear to auscultation (anterior) CV: RRR, no murmur, Extremities: good pedal pulses, able to wiggle toes bilaterally Neuro: A&O x3, Results & Data Results & Data Vital Signs (Past 12 Hours) Vital Signs Temp Pulse Pulse Resp BP Pulse Ox O2 Del Method 09/26/23 08:16 36.5 C 64 17 105/67 94 Room Air 09/26/23 01:01 Nasal Cannula 09/25/23 23:27 36.4 C L 66 18 125/76 94 Nasal Cannula 09/25/23 22:08 55 L 13 108/65 98 Nasal Cannula O2 Flow Rate 09/26/23 08:16 09/26/23 01:01 2 09/25/23 23:27 2 09/25/23 22:08 2 Laboratory Results Cbc and chemistry reviewed Diagnostic Findings xrays reviewed PG Care Time/CCT Total # of Minutes Spent Total Time Spent with Patient: Total time spent is greater than 50% in coordination of care (as documented) at patient's floor/unit and/or counseling patient: Coding Level of Care Code 85330 SUB INP/OBS CARE 3/50MIN Diagnoses Closed fracture of right hip S72.001A Encounter type: initial encounter Syncope R55 Syncope type: unspecified COVID-19 U07.1 (1) Closed fracture of right hip Encounter type: initial encounter Qualified Code(s): S72.001A - Fracture of unspecified part of neck of right femur, initial encounter for closed fracture (2) Syncope Syncope type: unspecified Qualified Code(s): R55 - Syncope and collapse
[2023-09-26] MEDS: HYDROmorphone INJ 0.5 MG/0.5 ML SYR IV STA (10:21)
[2023-09-26] MEDS: LORazepam 0.25 MG in SYRINGE 0.125 ML IV ONE (10:22)
[2023-09-26] MEDS ORDERED: BUPIVACAINE 0.5 % 5 MG/1 ML PF 10ML VIAL ONE (11:16)
[2023-09-26] MEDS ORDERED: PHENYLEPHRINE 100MCG/ML 10ML SYR IV ONE (12:15)
[2023-09-26] MEDS: ceFAZolin 2000MG 2,000 MG/15 ML SYR IV ONE (12:16)
[2023-09-26] MEDS ORDERED: ePHEDrine sulfate 50 MG/ML AMP ONE (12:20)
[2023-09-26] MEDS ORDERED: ceFAZolin 330 MG/ML 1 GM VIAL ONE (12:27)
[2023-09-26] MEDS: BUPIVACAINE 0.5 % 5 MG/1 ML MPF 30ML VIAL ONE (13:07)
--- NOTE | 2023-09-26 13:18 | Operative Report ---
Post Operative Report Procedure Date: September 26, 2023 Preop diagnosis: Right intertrochanteric hip fracture Post Diagnosis: Right intertrochanteric hip fracture Procedure: Right intertrochanteric hip nail Surgeon: Dr Watson [employer] Teacher: ASHLEY Main Estimated Blood Loss: 20 mL Findings: displaced intertrochanteric hip fracture. Lesser troch trochanter was fractured Specimens: None Time Out: I identified the patient and participated in the time-out. Description of Procedure: Patient was placed on fracture table and we performed a closed reduction with the fracture table and traction. It did show acceptable alignment. Patient was given perioperative antibiotics prior to the skin incision. I made a longitudinal incision proximal to the tip of the greater trochanter. Dissection was carried down through the skin and subcutaneous tissue. I sharply incised the fascial layer. Identified the droop greater trochanter. I then placed a guidewire for a Synthes TFN a nail at the tip of the trochanter and down the canal. I then reamed with the entry reamer. I then passed the ball- tipped guidewire and verify this was in the femur. I reamed with a size 12.5 and passed an 11 nail. We held the femur in a position of reduction with elevating the femur and a medial push to hold it in reduction. I then drilled for the center screw. I placed this in the center center position and was verified under C-arm fluoroscopy. I then placed the screw and did compress the fracture. This did result in good alignment. I placed the interlock screw for the mid nail with the guide. Final C-arm radiographs confirmed good alignment. Incisions were irrigated. Fascial layer was closed with 0 Vicryl. Subcutaneous layer was closed with 2-0 Vicryl. Hana were used on skin and patient was sent to the PACU in a stable condition I discussed results of the procedure in detail with the patient's family. Attestation: I attest to the content of the Intraoperative Record and any orders documented therein. Any exceptions are noted below.
[2023-09-26] MEDS ORDERED: PROMETHAZINE HCL 12.5 MG in SODIUM CHLORIDE 0.9% 50 ML IV PRN (13:27)
[2023-09-26] MEDS ORDERED: ePHEDrine sulfate 50 MG/ML AMP IV PRN (13:27)
[2023-09-26] MEDS ORDERED: ATROPINE SULFATE 0.1 MG/ML 10ML SYR IV PRN (13:27)
[2023-09-26] MEDS ORDERED: fentaNYL citrate PF 100 MCG/2 ML VIAL IV PRN (13:27)
[2023-09-26] MEDS ORDERED: FLUMAZENIL 0.1 MG/1 ML 10 ML VIAL IV PRN (13:27)
[2023-09-26] MEDS ORDERED: ONDANSETRON INJ 2 MG/ML 2 ML VIAL IV PRN (13:27)
[2023-09-26] MEDS ORDERED: NALOXONE HCL 0.4 MG/1 ML VIAL/CARP IV PRN (13:27)
--- NOTE | 2023-09-26 13:27 | Fluoroscopy Report ---
FL hip RT 2-3V CLINICAL HISTORY: RT HIP ORIF COVID +acute fracture of the right femur COMPARISON STUDY: Radiographs from 09/25/2023 FLUOROSCOPY TIME: 84.8 seconds FLUOROSCOPY IMAGES: 6 EXPOSURE DOSE: 20.73 mGy FINDINGS: Status post placement of an intertrochanteric nail with medullary tova fixating the acute in tertrochanteric fracture. There is improved alignment. Expected postoperative soft tissue swelling wi th deep tissue air. IMPRESSION: Fluoroscopic assistance as above. ACT 112: Negative or not required by law. Electronically signed by: Kp Ramires M.D. 09/26/2023 1:25 PM
--- NOTE | 2023-09-26 13:56 | Anesthesiology Progress Note ---
Date of Service September 26, 2023 Anesthesia Post Procedure Vital Signs Vital Signs: Temp Pulse Pulse Pulse Resp BP BP 09/26/23 13:46 70 14 106/49 L 09/26/23 13:40 65 14 90/57 L 09/26/23 13:30 71 15 104/64 09/26/23 13:23 36.4 C L 74 10 L 84/51 L 09/26/23 10:18 36.7 C 60 20 105/70 09/26/23 08:16 36.5 C 64 17 105/67 09/26/23 08:00 09/26/23 01:01 09/25/23 23:27 36.4 C L 66 18 125/76 09/25/23 22:08 55 L 13 108/65 09/25/23 21:41 59 L 14 113/72 09/25/23 21:22 65 19 112/70 09/25/23 20:35 59 L 09/25/23 20:31 63 20 120/72 09/25/23 18:50 58 L 13 105/64 09/25/23 18:40 68 18 09/25/23 18:37 09/25/23 18:30 62 20 09/25/23 18:30 09/25/23 18:20 58 L 12 09/25/23 18:10 56 L 19 09/25/23 18:05 56 L 13 136/90 09/25/23 18:00 52 L 16 09/25/23 17:57 48 L 09/25/23 17:56 51 L 16 09/25/23 17:56 36.9 C 53 L 19 136/90 Pulse Ox O2 Del Method O2 Flow Rate 09/26/23 13:46 95 Oxymask 0 09/26/23 13:40 99 Oxymask 4 09/26/23 13:30 100 Oxymask 8 09/26/23 13:23 94 Room Air 09/26/23 10:18 99 Nasal Cannula 2 09/26/23 08:16 94 Room Air 09/26/23 08:00 Nasal Cannula 2 09/26/23 01:01 Nasal Cannula 2 09/25/23 23:27 94 Nasal Cannula 2 09/25/23 22:08 98 Nasal Cannula 2 09/25/23 21:41 98 Nasal Cannula 2 09/25/23 21:22 98 Nasal Cannula 2 09/25/23 20:35 09/25/23 20:31 100 Nasal Cannula 0 09/25/23 18:50 98 09/25/23 18:40 99 09/25/23 18:37 92 Nasal Cannula 2 09/25/23 18:30 98 09/25/23 18:30 88 L Room Air 09/25/23 18:20 98 09/25/23 18:10 92 09/25/23 18:05 95 Room Air 09/25/23 18:00 98 09/25/23 17:57 09/25/23 17:56 98 09/25/23 17:56 98 Room Air Pain Intensity Right Hip: Pain Intensity: 9 Transfer of Care Handoff Completed per policy Notes Mental Status: alert / awake / arousable Patient Amnestic to Procedure: Yes Nausea / Vomiting: adequately controlled Pain: adequately controlled Airway Patency, RR, SpO2: stable & adequate BP & HR: stable & adequate Hydration State: stable & adequate Neuraxial Anesthesia: was administered and sensory block is resolving Anesthetic Complications: no major complications apparent
[2023-09-26] MEDS ORDERED: SOD PHOSPHATE/SOD BIPHOSPHATE ENEMA 132 ML BTL PR PRN (14:10)
[2023-09-26] MEDS ORDERED: COUGH DROP (SUGAR FREE) LOZ 24 LOZ/1 BOX BUCCAL PRN (14:10)
--- NOTE | 2023-09-26 15:37 | XRay Report ---
XR hip RT min 2V HISTORY: 63 years-old Female Post-Operative implant position acute fracture of the right hip COMPARISON: 09/25/2023 TECHNIQUE: 2 views of the right hip FINDINGS: Status post placement of an intertrochanteric nail with medullary tova fixating the acute intertrochan teric fracture. There is improved alignment with mild persistent medial displacement of a few millime ters. Lateral skin lio. Expected postoperative soft tissue swelling with deep tissue air. IMPRESSION: Improved alignment of the acute intertrochanteric fracture status post ORIF. ACT 112: Negative or not required by law. The above report was generated using voice recognition software. It may contain grammatical, syntax o r spelling errors. Electronically signed by: Kp Ramires M.D. 09/26/2023 3:36 PM
[2023-09-26] MEDS: HYDROmorphone INJ 1 MG/ML SYRINGE IV PRN (17:42)
[2023-09-26] MEDS: HYDROCODONE/ACETAMOPHEN 5/325MG TAB PO PRN (18:29)
[2023-09-26] MEDS ORDERED: HYDROmorphone INJ 1 MG/ML SYRINGE IV PRN (19:33)
[2023-09-26] MEDS: HYDROmorphone INJ 2 MG/ML SYR/VIAL IV STA (20:00)
[2023-09-26] MEDS: ASPIRIN 81 MG ECTAB PO SCH (20:08)
[2023-09-26] MEDS ORDERED: METAXALONE 800 MG TABLET PO PRN (20:43)
[2023-09-26] MEDS: HYDROmorphone INJ 1 MG/ML SYRINGE IV SCH (22:45)
[2023-09-27 07:26] LABS: Eosinophils # (auto) 0.01 K/uL (0.00-0.50); Eosinophils % (auto) 0.3 %; Hematocrit (blood only) 28.5 % (37.0-47.0); Hemoglobin 9.3 g/dl (12.0-16.0); Immature Granulocytes # (auto) 0.02 K/uL (0.01-0.20); Immature Granulocytes % (auto) 0.6 %; Lymphocytes # (auto) 0.35 K/uL (1.20-3.40); Lymphocytes % (auto) 10.1 %; Mean Corpuscular Hemoglobin 30.9 pg (25.0-34.0); Mean Corpuscular Hgb Conc 32.6 g/dL (32.0-36.0); Mean Corpuscular Volume 94.7 fL (80.0-100.0); Mean Platelet Volume 10.4 fL (9.4-12.4); Monocytes # (auto) 0.37 K/uL (0.11-0.59); Monocytes % (auto) 10.7 %; Neutrophils # (auto) 2.72 K/uL (1.40-6.50); Neutrophils % (auto) 78.3 %; Platelet Count 127 K/uL (130-400); RDW Coefficient of Variation 12.1 % (11.5-14.5); RDW Standard Deviation 42.1 fL (36.4-46.3); Red Blood Count 3.01 M/uL (4.20-5.40); White Blood Count 3.47 K/ul (4.8-10.8)
[2023-09-27 07:45] LABS: Calcium 7.1 mg/dl (8.6-10.3); Creatinine Clr Calc Pharmacy 115.6 ml/min; Est GFR (African American) 119.4 ml/min; Potassium 4.1 mmol/L (3.5-5.1)
--- NOTE | 2023-09-27 10:36 | Orthopedic Progress Note ---
Date of Service September 27, 2023 Assessment & Plan (1) Intertrochanteric fracture of right hip: Plan: Postop day 1 status post right trochanteric nailing PT/OTweightbearing on the right lower extremity for approximately 4-6 weeks. DVT prophylaxisaspirin 81 mg twice daily x 4 weeks. Pain controlas written. Discharge planningpatient states she lives with 2 young adults. She has multiple steps getting into her house and has multiple steps to get down to the basement area where she lives. She will probably require a rehabilitation stay. Orthopedics will sign off at this time. Discharge instructions will be in the chart. She will follow-up 10-14 days after the surgery today. Admission and Anticipated Discharge Date Admission Date: September 25, 2023 Subjective Patient states she is having quite a bit of pain in the right hip. Having trouble getting comfortable. However, she was also working with physical therapy during the visit. No new complaints today. Denies chest pain, shortness of breath, lightheadedness Physical Exam Constitutional: WD/WN, vitals as above no acute distress Musculoskeletal: Hip: + surgical incision (Right hip: Dressings are C/D/I); no deformity, no skin erythema, no ecchymosis and no surgical drain present Skin: no rashes, warm and dry Trauma: no evidence of skin trauma Neurologic: normal touch/pain/proprioception Psychiatric: A+Ox3, euthymic affect Speech: normal rate/rhythm/volume of speech Results & Data Vital Signs (Past 12 Hours) Vital Signs Temp Pulse Resp BP Pulse Ox O2 Del Method O2 Flow Rate 09/27/23 07:48 37.2 C 78 16 107/66 96 Room Air 09/27/23 04:39 37 C 80 18 105/65 100 Nasal Cannula 2 09/26/23 22:37 37 C 76 16 104/64 97 Nasal Cannula 2 Laboratory Results Laboratory Tests 09/27/23 06:27 Hgb 9.3 L D Hct 28.5 L Plt Count 127 L
[2023-09-27] MEDS: HYDROmorphone INJ 1 MG/ML SYRINGE IV PRN (10:56)
[2023-09-27] MEDS: CHOLECALCIFEROL 125 MCG (5,000 UNITS) TAB PO SCH (11:04)
--- NOTE | 2023-09-27 13:39 | Hospitalist Progress Note ---
Date of Service September 27, 2023 Assessment & Plan (1) Closed fracture of right hip: Plan: Age-related osteoporosis with current pathologic fracture, right femur 63yo female with ground level fall x 2 resulting in acute comminuted, impacted and displaced intertrochanteric right femoral fracture. - Consult orthopedic surgery - S/P right intertrochanteric hip nail 09/[address] Watson - DVT proh with ASA 81mg BID x 30 days - Pain control with scheduled tylenol, prn oxycodone prn dilaudid - patient stuggled with pain control at times required scheduled dilaudid, continue to work to transition to complete PO regiement - cont bowel regiment -PT/OT --> will need rehab -UA with 1+ bacteria, asymptomatic, culture with no growth -Vit D: 33 --> PO supplementation started 09/27 (2) Syncope: Plan: Patient reports two syncopal events day of arrival, some ongoing dizziness and vertigo. -Fall precautions -Will defer additional syncope workup at this time - likely secondary to Covid effects, acute illness -Meclizine PRN dizziness Patient had episode of lightheadedness while working with therapy today, BP dropped. - suspect related to scheduled Dilaudid (discontinued) - continue to monitor, consider midodrine (3) COVID-19: Plan: Patient developed Covid-19 symptoms to 09/19/23 and tested POSITIVE on 09/21/23. She reports that her symptoms are overall improving. No fever or SOB. PCR is POSITIVE2/3 -Will maintain Covid isolation for now. -Normal oxygenation - she did drop her saturations temporarily in the ER after administration of Dilaudid. Now on 2L/min. Has been able to wean off, but replaced after pain medicatins No indication for Remdesivir or Dexamethasone treatment (4) Acute blood loss anemia: Plan: Acute blood loss anemia - Dropped from 13.3 to 9.3 - EBL 20 mL - will add iron studies to AM labs - trend CBC Plan Dispo: continued inpatient stay DVT proh: ASA 81m BID (per ortho), SCDs Admission and Anticipated Discharge Date Admission Date: September 25, 2023 Subjective patient seen sitting up in bed. States pain has been better controlled the last 12 hours or so however she has been relying on IV pain medication. Physical therapy evaluation today was limited by hypotension. However patient understanding that she is going to need rehab. Has not moved her bowels. Review of Systems Review of Systems: All systems reviewed & are unremarkable except as noted in Subjective Physical Exam Physical Exam: General: Appears much more comfortable today no longer in distress , VS as above Resp: normal respiratory effort, lungs clear to auscultation CV: RRR, no murmur, Extremities: good pedal pulses, able to wiggle toes bilaterally. Hip dressing c/d/i Abd: soft nontender no hepatosplenomegaly Neuro: A&O x3, Results & Data Results & Data Vital Signs (Past 12 Hours) Vital Signs Temp Pulse Resp BP Pulse Ox O2 Del Method O2 Flow Rate 09/27/23 11:51 37.3 C 94 H 18 99/63 L 97 Nasal Cannula 2 09/27/23 07:48 37.2 C 78 16 107/66 96 Room Air 09/27/23 07:20 Nasal Cannula 2 09/27/23 04:39 37 C 80 18 105/65 100 Nasal Cannula 2 Laboratory Results CBC and chemistry reviewed PG Care Time/CCT Total # of Minutes Spent Total Time Spent with Patient: Total time spent is greater than 50% in coordination of care (as documented) at patient's floor/unit and/or counseling patient: Coding Level of Care Code 90193 SUB INP/OBS CARE 3/50MIN Diagnoses Closed fracture of right hip S72.001A Encounter type: initial encounter Syncope R55 Syncope type: unspecified COVID-19 U07.1 Acute blood loss anemia D62 (1) Closed fracture of right hip Encounter type: initial encounter Qualified Code(s): S72.001A - Fracture of unspecified part of neck of right femur, initial encounter for closed fracture (2) Syncope Syncope type: unspecified Qualified Code(s): R55 - Syncope and collapse
[2023-09-27] MEDS ORDERED: HYDROmorphone INJ 0.5 MG/0.5 ML SYR IV PRN (13:42)
[2023-09-27] MEDS: ACETAMINOPHEN 500 MG TAB PO SCH (14:18)
[2023-09-27] MEDS: LORazepam 0.5 MG TAB PO PRN (14:18)
[2023-09-27] MEDS: oxyCODONE HCL IR 5 MG TAB (IMMEDIATE RELEASE) PO PRN (23:39)
[2023-09-28] MEDS: HYDROmorphone INJ 1 MG/ML SYRINGE IV PRN (05:28)
[2023-09-28 06:56] LABS: Eosinophils # (auto) 0.01 K/uL (0.00-0.50); Eosinophils % (auto) 0.2 %; Hematocrit (blood only) 26.1 % (37.0-47.0); Hemoglobin 8.7 g/dl (12.0-16.0); Immature Granulocytes # (auto) 0.03 K/uL (0.01-0.20); Immature Granulocytes % (auto) 0.6 %; Lymphocytes # (auto) 0.35 K/uL (1.20-3.40); Lymphocytes % (auto) 6.9 %; Mean Corpuscular Hemoglobin 30.6 pg (25.0-34.0); Mean Corpuscular Hgb Conc 33.3 g/dL (32.0-36.0); Mean Corpuscular Volume 91.9 fL (80.0-100.0); Mean Platelet Volume 10.4 fL (9.4-12.4); Monocytes # (auto) 0.51 K/uL (0.11-0.59); Monocytes % (auto) 10.1 %; Neutrophils # (auto) 4.16 K/uL (1.40-6.50); Neutrophils % (auto) 82.2 %; Platelet Count 144 K/uL (130-400); RDW Coefficient of Variation 12.3 % (11.5-14.5); RDW Standard Deviation 41.2 fL (36.4-46.3); Red Blood Count 2.84 M/uL (4.20-5.40); White Blood Count 5.06 K/ul (4.8-10.8)
[2023-09-28 07:11] LABS: BUN Creatinine Ratio 18.9 (10-20); Calcium 7.5 mg/dl (8.6-10.3); Est GFR (African American) 117.1 ml/min; Potassium 3.9 mmol/L (3.5-5.1)
[2023-09-28 07:31] LABS: Ferritin 117.4 ng/ml (8-388)
--- NOTE | 2023-09-28 08:43 | Hospitalist Progress Note ---
Date of Service September 28, 2023 Assessment & Plan (1) Closed fracture of right hip: Plan: Age-related osteoporosis with current pathologic fracture, right femur 63yo female with ground level fall x 2 resulting in acute comminuted, impacted and displaced intertrochanteric right femoral fracture. Orthopedics consulted s/p Right intertrochanteric hip nail with Dr Watson on 09/26 WBC wnl on repeat Hgb 13.3--> 9.3 --> 8.7, acute blood loss anemia from surgery as well as dilutional from IVF. No CP/SOB reported (on O2, but suspect from opiates, CXR added for today, also asked RN to provide incentive spirometer. Does have smoking hx/emphysema on initial CXR prior to surgery on admission) Vit D 33, PO supplementation started and would continue at ct Pain control: PO/IV pain control ordered. Working to wean off IV (took 1 dose this morning). ?medical marijuana use, will need to inquire Bowel regimen: colace BID continued, RN to administer suppository 09/28. Miralax added DVT proph: ASA 81mg BID UA with 1+ bacteria, asymptomatic, culture with no growth . No dysuria reported, monitor. *Check AM labs to ensure hgb drop slows. Iron panel w/ low iron/trans % sat and can consider IV venofer while inpatient as well. BP stable, BUN/Cr without elevation at present time PT/OT consulted -- likely will need rehab, CM to follow (2) Syncope: Plan: Patient reports two syncopal events day of arrival, some ongoing dizziness and vertigo. Fall precautions Will defer additional syncope workup at this time - likely secondary to Covid effects, acute illness Meclizine PRN dizziness Patient had episode of lightheadedness while working with therapy today, BP dropped. - suspect related to scheduled Dilaudid (discontinued) Continue to monitor (3) COVID-19: Plan: Patient developed Covid-19 symptoms to 09/19/23 and tested POSITIVE on 09/21/23. She reports that her symptoms are overall improving. No fever or SOB. PCR is POSITIVE2/3 -Will maintain Covid isolation for now. -Normal oxygenation - she did drop her saturations temporarily in the ER after administration of Dilaudid. Now on 2L/min. Has been able to wean off, but replaced after pain medications No indication for Remdesivir or Dexamethasone treatment CXR ordered for eval, RN to provide incentive spirometer (4) Acute blood loss anemia: Plan: Acute blood loss anemia - Dropped from 13.3 to 9.3 --> further to 8.7 as above - EBL 20 mL - will add iron studies to AM labs -- iron/trans % sat low. IBC not elevated however, suspect chronic in nature. Can consider IV venofer No bleeding reported, monitor CBC in AM Plan Dispo: continued inpatient stay DVT proh: ASA 81m BID (per ortho), SCDs PT/OT consults pending and likely needing rehab. CM to follow Wean pain meds as able, labs in AM and CXR for eval continued hypoxia Admission and Anticipated Discharge Date Admission Date: September 25, 2023 Subjective EVal this morning, sitting up in bed, no acute distress. Having ongoing pain to her right hip, improved slightly compared to days prior but wanting something before therapy. Nursing aware and will medicate prior to therapy. Passing gas but no BM. RN to administer suppository. NO fever/chills, chest pain, shortness of breath. BP borderline but no lightheaded/dizziness. Sensation intact, SCDs in place. Prior smoker, quit >10 years ago but did smoke for ~30 years. Anticipating rehab eventually when able. Physical Exam 2 Physical Exam: General: chronically ill appearing female female sitting up in bed eating lunch, NAD Head atraumatic, normocephalic, mmm, trachea midline Resp: even/unlabored, diminished in the bases, no w/c/r, on 2L NC CV: RRR, no significant mrg, no pitting edema/calf tenderness GI : +BS, slight distension, nontender no marie MSK/Neuro: dressing to RIGHT hip c/d/i, slight edema, no overt ecchymosis, no erythema/drainage, +tenderness to palpation about incision NVI, dorsiflexion/plantar flexion intact Psych: AOx3, cooperative with exam Results & Data Results & Data Vital Signs (Past 12 Hours) Vital Signs Temp Pulse Resp BP Pulse Ox O2 Del Method O2 Flow Rate 09/28/23 07:58 36.7 C 77 16 109/69 97 Nasal Cannula 2 09/28/23 07:20 Nasal Cannula 2 Laboratory Results 09/28/23 06:17 09/28/23 06:17 Iron 11 TIBC 206 Unsaturated IBC 206 Transferrin % sat 5 Ferritin 117.4 PG Care Time/CCT Total # of Minutes Spent Total Time Spent with Patient: Total time spent is greater than 50% in coordination of care (as documented) at patient's floor/unit and/or counseling patient: Coding Level of Care Code 44034 SUB INP/OBS CARE 3/50MIN Diagnoses Closed fracture of right hip S72.001A Encounter type: initial encounter Syncope R55 Syncope type: unspecified COVID-19 U07.1 Acute blood loss anemia D62 (1) Closed fracture of right hip Encounter type: initial encounter Qualified Code(s): S72.001A - Fracture of unspecified part of neck of right femur, initial encounter for closed fracture (2) Syncope Syncope type: unspecified Qualified Code(s): R55 - Syncope and collapse
--- NOTE | 2023-09-28 12:36 | XRay Report ---
XR chest 1V portable HISTORY: 63 years-old Female f/u hypoxia acute shortness of breath with hypoxia COMPARISON: 09/25/2023 TECHNIQUE: AP view of the chest FINDINGS: Cardiomediastinal and hilar silhouettes are within normal limits. Emphysema with chronic interstitial coarsening. No pneumothorax, pleural effusion or airspace consolidation. Spondylotic spurring of the spine. IMPRESSION: Emphysema without acute process. ACT 112: Negative or not required by law. The above report was generated using voice recognition software. It may contain grammatical, syntax o r spelling errors. Electronically signed by: Kp Ramires M.D. 09/28/2023 12:34 PM
[2023-09-28] MEDS: POLYETHYLENE (MIRALAX) 17 GM PACK PO PRN (19:29)
[2023-09-29 06:38] LABS: Hemoglobin 9.1 g/dl (12.0-16.0); Mean Corpuscular Hemoglobin 31.1 pg (25.0-34.0); Mean Corpuscular Hgb Conc 33.7 g/dL (32.0-36.0); Mean Corpuscular Volume 92.2 fL (80.0-100.0); Mean Platelet Volume 10.1 fL (9.4-12.4); Platelet Count 185 K/uL (130-400); RDW Coefficient of Variation 12.2 % (11.5-14.5); RDW Standard Deviation 41.3 fL (36.4-46.3); Red Blood Count 2.93 M/uL (4.20-5.40); White Blood Count 4.54 K/ul (4.8-10.8)
[2023-09-29 06:59] LABS: Albumin Globulin Ratio 1.2 (0.9-2); Albumin Level 3.1 gm/dl (3.4-5.0); BUN Creatinine Ratio 27.1 (10-20); Bilirubin,Total 0.6 mg/dl (0.2-1.0); Calcium 7.9 mg/dl (8.6-10.3); Creatinine Clr Calc Pharmacy 120.4 ml/min; Est GFR (Non-African American) 104.4 ml/min; Globulin 2.5 gm/dl (2.5-4.0); Magnesium 1.9 mg/dl (1.7-2.4); Total Protein 5.6 gm/dl (6.0-8.3)
--- NOTE | 2023-09-29 08:00 | Hospitalist Progress Note ---
Date of Service September 29, 2023 Assessment & Plan (1) Closed fracture of right hip: Plan: Age-related osteoporosis with current pathologic fracture, right femur 63yo female with ground level fall x 2 resulting in acute comminuted, impacted and displaced intertrochanteric right femoral fracture. Orthopedics consulted s/p Right intertrochanteric hip nail with Dr Watson on 09/26 Vit D 33, PO supplementation started and would continue at dc No leukocytosis, afebrile Hgb 13.3--> 8.7 - Acute blood loss anemia from surgery and dilutional from IVF. Improved to 9.1 on repeat - Iron studies w/ low iron/trans% sat. Consideration for IV venofer vs PO supplementation however would like her bowels to be moving first Bowel regimen -colace BID, miralax, RN to administer enema 09/29. Miralax added Pain control -PO oxycodone available, tylenol. Decreased IV dilaudid to 0.5mg IV as needed for breakthrough/PT evals -Does use medical marijuana on occassion at home to note for sleep/arthritis pains On room air, SpO2 92%. No SOB. CXR w/ emphysema but no acute process DVT proph: ASA 81mg BID PT/OT - rehab recommended. CM to apply for auth for [facility]. Hopefully get her to move her bowels/off IV pain medication by tomorrow (2) Syncope: Plan: Patient reports two syncopal events day of arrival, some ongoing dizziness and vertigo. Fall precautions Will defer additional syncope workup at this time - likely secondary to Covid effects, acute illness Meclizine PRN dizziness No further dizziness reported -- monitor w/ BP (3) COVID-19: Plan: Patient developed Covid-19 symptoms to 09/19/23 and tested POSITIVE on 09/21/23. She reports that her symptoms are overall improving. No fever or SOB. PCR is POSITIVE2/3 Isolation precautions Dropped sats w/ opiates -- decreased use and repeat CXR NEGATIVE for acute process, notes emphysema in patient w/ hx of smoking No indication for Remdesivir or Dexamethasone treatment NOW ON ROOM AIR -- continued incentive spirometer. Lungs clear, no SOB reported (4) Acute blood loss anemia: Plan: Acute blood loss anemia As above, hgb dropped to 8.7, improved to 9.1 on AM labs. Consideration for IV Venofer *Of note, hx gastric bypass. On protonix once daily, hgb stable but could consider increasing if needed. (5) H/O gastric bypass: Plan: noted hx, continues on PPI once daily while on ASA 81mg BID for DVT proph. No increased reflux reported but will continued to monitor/increase if needed Plan Dispo: continued inpatient stay DVT proh: ASA 81m BID, SCDs PT/OT rec rehab, CM applying for [facility] -- rehab in next 24-48 hours hopefully if moving bowels/pain controlled on oral agents. Admission and Anticipated Discharge Date Admission Date: September 25, 2023 Subjective Eval this morning, sitting up in bed. Off supplemental oxygen, SpO2 92% on room air eating breakfast. No SOB reported. Pain controlled with ordered medications. Passing more gas but no BM. Discussed and she thinks she will be able to go by herself if able to get up to bedside commode to use restroom. Will ask nursing to get her up after meal to see if able ot move on herself but otherwise will plan for enema after lunch to assist. Planning for rehab. Hopefully able to dc IV pain meds by tomorrow and transition to oral as pain controlled but she would like available to work with therapy t [facility]. No fever/chills, chest pain, shortness of breath. 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 Does have medical marijuana card but doesn't use that often. More for arthritis in her hands and uses at night to help sleep but not frequent. Discussed policy if needing topical/tinctures could bring in if desired as suspect difficult pain control partially contributed by that. Questions/concerns addressed at this time. Physical Exam Physical Exam: General: chronically ill appearing female female sitting up in bed eating lunch, NAD Head atraumatic, normocephalic, mmm, trachea midline Resp: even/unlabored, diminished in the bases, no w/c/r, ROOM AIR 92% CV: RRR, no significant mrg, no pitting edema/calf tenderness GI : slight hypoactive BS, slight distension but nontender marie draining yellow urine MSK/Neuro: dressing to RIGHT hip c/d/i, slight edema, no overt ecchymosis, no erythema/drainage, +tenderness to palpation about incision but NVI, dorsiflexion/plantar flexion intact Psych: AOx3, cooperative with exam Results & Data Results & Data Vital Signs (Past 12 Hours) Vital Signs Temp Pulse Resp BP Pulse Ox Pulse Ox O2 Del Method 09/28/23 21:37 101/68 09/28/23 20:38 37.1 C 79 16 96/60 L 96 Nasal Cannula 09/28/23 20:06 94 O2 Del Method O2 Flow Rate O2 Flow Rate 09/28/23 21:37 09/28/23 20:38 1 09/28/23 20:06 Nasal Cannula 1 Laboratory Results 09/29/23 Range/Units 06:01 WBC 4.54 L (4.8-10.8) K/ul RBC 2.93 L (4.20-5.40) M/uL Hgb 9.1 L (12.0-16.0) g/dl Hct 27.0 L (37.0-47.0) % MCV 92.2 (80.0-100.0) fL MCH 31.1 (25.0-34.0) pg MCHC 33.7 (32.0-36.0) g/dL RDW Std Deviation 41.3 (36.4-46.3) fL RDW Coeff of Michelle 12.2 (11.5-14.5) % Plt Count 185 (130-400) K/uL MPV 10.1 (9.4-12.4) fL Sodium 137 (136-145) mmol/L Potassium 4.0 (3.5-5.1) mmol/L Chloride 103 (98-107) mmol/L Carbon Dioxide 30 (21-32) mmol/L Anion Gap 4 (3-11) BUN 13 (6-23) mg/dl Creatinine 0.48 L (0.6-1.2) mg/dl Est Cr Clr Drug Dosing 120.4 ml/min Est GFR ( Amer) 121.0 ml/min Est GFR (Non-Af Amer) 104.4 ml/min BUN/Creatinine Ratio 27.1 H (10-20) Glucose 92 (70-99(Fasting)) mg/dl Calcium 7.9 L (8.6-10.3) mg/dl Magnesium 1.9 (1.7-2.4) mg/dl Total Bilirubin 0.6 (0.2-1.0) mg/dl AST 16 (13-39) U/L ALT 12 (7-52) U/L Alkaline Phosphatase 53 (34-104) U/L Total Protein 5.6 L (6.0-8.3) gm/dl Albumin 3.1 L (3.4-5.0) gm/dl Globulin 2.5 (2.5-4.0) gm/dl Albumin/Globulin Ratio 1.2 (0.9-2) Vitamin B12 743 (180-914) pg/ml Diagnostic Findings Chest X-Ray 09/28/23 08:42 XR chest 1V portable HISTORY: 63 years-old Female f/u hypoxia acute shortness of breath with hypoxia COMPARISON: 09/25/2023 TECHNIQUE: AP view of the chest FINDINGS: Cardiomediastinal and hilar silhouettes are within normal limits. Emphysema with chronic interstitial coarsening. No pneumothorax, pleural effusion or airspace consolidation. Spondylotic spurring of the spine. IMPRESSION: Emphysema without acute process. ACT 112: Negative or not required by law. The above report was generated using voice recognition software. It may contain grammatical, syntax or spelling errors. Electronically signed by: Kp Ramires M.D. 09/28/2023 12:34 PM PG Care Time/CCT Total # of Minutes Spent Total Time Spent with Patient: Total time spent is greater than 50% in coordination of care (as documented) at patient's floor/unit and/or counseling patient: Coding Level of Care Code 69379 SUB INP/OBS CARE 3/50MIN Diagnoses Closed fracture of right hip S72.001A Encounter type: initial encounter Syncope R55 Syncope type: unspecified COVID-19 U07.1 Acute blood loss anemia D62 H/O gastric bypass Z98.84 (1) Closed fracture of right hip Encounter type: initial encounter Qualified Code(s): S72.001A - Fracture of unspecified part of neck of right femur, initial encounter for closed fracture (2) Syncope Syncope type: unspecified Qualified Code(s): R55 - Syncope and collapse
[2023-09-29] MEDS: POLYETHYLENE (MIRALAX) 17 GM PACK PO SCH ×2 (09:28→20:34)
[2023-09-29] MEDS: HYDROmorphone INJ 1 MG/ML SYRINGE IV STA (10:56)
[2023-09-29] MEDS: HYDROmorphone INJ 1 MG/ML SYRINGE IV PRN (16:13)
[2023-09-29] MEDS: IRON SUCROSE 200 MG in 0.9 % SODIUM CHLORIDE 100 ML IV SCH (16:16)
[2023-09-29] MEDS: SOD PHOSPHATE/SOD BIPHOSPHATE ENEMA 132 ML BTL PR STA (16:21)
[2023-09-30 07:11] LABS: Basophils # (auto) 0.02 K/uL (0.00-0.20); Basophils % (auto) 0.6 %; Eosinophils # (auto) 0.01 K/uL (0.00-0.50); Eosinophils % (auto) 0.3 %; Hematocrit (blood only) 26.9 % (37.0-47.0); Hemoglobin 8.9 g/dl (12.0-16.0); Immature Granulocytes # (auto) 0.01 K/uL (0.01-0.20); Immature Granulocytes % (auto) 0.3 %; Lymphocytes # (auto) 0.48 K/uL (1.20-3.40); Mean Corpuscular Hemoglobin 31.3 pg (25.0-34.0); Mean Corpuscular Hgb Conc 33.1 g/dL (32.0-36.0); Mean Corpuscular Volume 94.7 fL (80.0-100.0); Mean Platelet Volume 10.1 fL (9.4-12.4); Monocytes # (auto) 0.45 K/uL (0.11-0.59); Neutrophils # (auto) 2.24 K/uL (1.40-6.50); Neutrophils % (auto) 69.8 %; Platelet Count 201 K/uL (130-400); RDW Coefficient of Variation 12.4 % (11.5-14.5); RDW Standard Deviation 43.4 fL (36.4-46.3); Red Blood Count 2.84 M/uL (4.20-5.40); White Blood Count 3.21 K/ul (4.8-10.8)
--- NOTE | 2023-09-30 08:38 | Hospitalist Progress Note ---
Date of Service September 30, 2023 Assessment & Plan (1) Closed fracture of right hip: Plan: Age-related osteoporosis with current pathologic fracture, right femur 63yo female with ground level fall x 2 resulting in acute comminuted, impacted and displaced intertrochanteric right femoral fracture. Orthopedics consulted s/p Right intertrochanteric hip nail with Dr Watson on 09/26 Vit D 33, PO supplementation started and would continue at dc No leukocytosis, afebrile Hgb 13.3--> 8.7 - Acute blood loss anemia from surgery and dilutional from IVF. Improved to 9.1 on repeat - Iron studies w/ low iron/trans% sat. Venofer 200mg IV daily ordered Bowel regimen -colace BID, miralax, RN to administer enema 09/29. Miralax added +BM small evening 09/29, more loose/moderate BM reported AM 09/30 Pain control -PO oxycodone available, tylenol. Decreased IV dilaudid to 0.5mg IV as needed for breakthrough/PT evals -Does use medical marijuana on occassion at home to note for sleep/arthritis pains On room air, SpO2 92%. No SOB. CXR w/ emphysema but no acute process DVT proph: ASA 81mg BID PT/OT - rehab recommended. CM to apply for auth for [facility]. Hopefully get her to move her bowels/off IV pain medication by tomorrow (2) Syncope: Plan: Patient reports two syncopal events day of arrival, some ongoing dizziness and vertigo. Fall precautions Will defer additional syncope workup at this time - likely secondary to Covid effects, acute illness Meclizine PRN dizziness No further dizziness reported -- monitor w/ BP (3) COVID-19: Plan: Patient developed Covid-19 symptoms to 09/19/23 and tested POSITIVE on 09/21/23. She reports that her symptoms are overall improving. No fever or SOB. PCR is POSITIVE2/3 Isolation precautions Dropped sats w/ opiates -- decreased use and repeat CXR NEGATIVE for acute process, notes emphysema in patient w/ hx of smoking No indication for Remdesivir or Dexamethasone treatment NOW ON ROOM AIR -- continued incentive spirometer. Lungs clear, no SOB reported (4) Acute blood loss anemia: Plan: Acute blood loss anemia As above, hgb dropped to 8.7, improved to 9.1 on AM labs. Consideration for IV Venofer *Of note, hx gastric bypass. On protonix once daily, hgb stable but could consider increasing if needed. (5) H/O gastric bypass: Plan: noted hx, continues on PPI once daily while on ASA 81mg BID for DVT proph. No increased reflux reported but will continued to monitor/increase if needed Plan Dispo: continued inpatient stay DVT proh: ASA 81m BID, SCDs PT/OT rec rehab, CM applying for [facility] -- rehab in next 24-48 hours hopefully if moving bowels/pain controlled on oral agents. Admission and Anticipated Discharge Date Admission Date: September 25, 2023 Physical Exam Physical Exam: General: chronically ill appearing female female sitting up in bed eating lunch, NAD Head atraumatic, normocephalic, mmm, trachea midline Resp: even/unlabored, diminished in the bases, no w/c/r, ROOM AIR 92% CV: RRR, no significant mrg, no pitting edema/calf tenderness GI : slight hypoactive BS, slight distension but nontender marie draining yellow urine MSK/Neuro: dressing to RIGHT hip c/d/i, slight edema, no overt ecchymosis, no erythema/drainage, +tenderness to palpation about incision but NVI, dorsiflexion/plantar flexion intact Psych: AOx3, cooperative with exam Results & Data Results & Data Vital Signs (Past 12 Hours) Vital Signs Temp Pulse Resp BP Pulse Ox O2 Del Method 09/29/23 21:00 36.8 C 89 20 99/65 L 94 Room Air PG Care Time/CCT Total # of Minutes Spent Total Time Spent with Patient: Total time spent is greater than 50% in coordination of care (as documented) at patient's floor/unit and/or counseling patient: Coding Diagnoses Closed fracture of right hip S72.001A Encounter type: initial encounter Syncope R55 Syncope type: unspecified COVID-19 U07.1 Acute blood loss anemia D62 H/O gastric bypass Z98.84 (1) Closed fracture of right hip Encounter type: initial encounter Qualified Code(s): S72.001A - Fracture of unspecified part of neck of right femur, initial encounter for closed fracture (2) Syncope Syncope type: unspecified Qualified Code(s): R55 - Syncope and collapse
--- NOTE | 2023-09-30 11:22 | Discharge Summary ---
Date of Service September 30, 2023 Admission HPI Per Admitting Provider Colleen Robbins is a 63yo female presenting with right hip fracture following a ground level fall. Patient began feeling ill on 09/19/23 afternoon with cough, fever to 101.7 and fatigue. She took a home Covid-19 test on 09/21/23 which was POSITIVE. She has been overall feeling better but has had persistent brain fog as well as tinnitus and vertigo. Today she went bowling with her family. She stepped out to get some air and became dizzy and passed out. She was able to get up without difficulty and reports that she continued to walk towards her car after passing out and passed out again in the parking lot landing on her right hip. She was found down in the parking lot by her grandson. She was unable to get up due to pain so EMS was called. In the ER patient is afebrile, HD stable. She was found to have an acute comminuted, impacted and displaced intertrochanteric right femoral fracture. Patient denies chest pain, palpitations, cough, SOB, abdominal pain, nausea, vomiting, diarrhea or constipation. No urinary complaints. No additional complaints at this time. ER Course: Dilaudid 0.5mg IV x 7 doses Dilaudid 1mg IV x 1 dose Zofran 4mg IV x 1 dose Acetaminophen 1gm IV x 1 dose Bupivacaine block Admission Exam Per Admitting Provider General: patient uncomfortable, NAD, non-toxic in appearance, AA&O x 4 Skin: warm, dry, intact, no rashes or lesions HEENT: NC/AT, PERRL, EOMI, anicteric sclera, conjunctiva without injection, external ear normal to inspection and nontender, nares patent, moist mucus membranes, dentition intact, no oropharyngeal lesions, neck supple, trachea midline, no LAD, no thyromegaly, no JVD Heart: +S1/S2, regular, no m/r/g Lungs: equal air entry bilaterally, no rales/rhonchi, expiratory wheezing right lung Abd: +BS, soft, NT/ND, no masses/organomegaly/ascites RLE shortened and rotated Ext: warm, 2+ pulses in UE/LE bilaterally, no clubbing/cyanosis or edema Neuro: nonfocal, patient AA&O x 4, speech intact, no facial droop, moving all extremities on command with equal strength 5/5 Principal Diagnosis Hip Fracture (RIGHT), COVID-19 Discharge Exam General: 63yo female sitting up in the recliner chair, NAD but wanting to get back into bed Head atraumatic, normocephalic, mmm, trachea midline Resp: even/unlabored, diminished in the bases but improved, no w/c/r, ROOM AIR 97% CV: RRR, no significant mrg, no pitting edema/calf tenderness GI : +BS, soft/NT MSK/Neuro: dressing to RIGHT hip c/d/i, slight edema, no overt ecchymosis, no erythema/drainage, +DECREASED tenderness to palpation about incision but NVI, dorsiflexion/plantar flexion intact Psych: AOx3, cooperative with exam Discharge Data Allergies Allergy/AdvReac Type Severity Reaction Status Date / Time adhesive Allergy Intermediate RASH Verified 09/25/23 19:03 duloxetine [From Cymbalta] AdvReac Intermediate "made me Verified 09/25/23 19:03 feel bad" gabapentin AdvReac Intermediate VISUAL Verified 09/25/23 19:03 DISTURBANCES Consultations 09/25/23 19:18 ED Decision to Admit Stat 09/25/23 23:22 Consult Anesthesiology Routine Consult Orthopedic Surgery Routine Procedures Performed Operation Date: 09/26/23 11:00 Actual Procedures p Intramedullary Lawson Femur-Right(Right) - Reggie Watson MD Ordered Studies Cervical Spine CT 09/25/23 17:53 CT cervical spine wo con CT DOSE: 1079.39 mGy.cm CLINICAL HISTORY: 63 years-old Female with fall. Acute neck injury status post fall COMPARISON: Head CT of same day TECHNIQUE: Multiple axial CT images of the cervical spine were obtained without contrast. A dose lowering technique was utilized adhering to the principles of ALARA. FINDINGS: Multilevel degenerative changes of the cervical spine including moderate disc space narrowing at C5-C6. Mostly mild multilevel facet arthrosis. The cervical soft tissues appear unremarkable. Pulmonary emphysema. No pneumothorax. Mild mucosal thickening of the imaged paranasal sinuses. Calcified plaque of the carotid bulbs. IMPRESSION: No acute cervical spine fracture or subluxation. ACT 112: Negative or not required by law. The above report was generated using voice recognition software. It may contain grammatical, syntax or spelling errors. Electronically signed by: Kp Ramires M.D. 09/25/2023 7:[address] 09/25/23 17:53 CT head/brain wo con CLINICAL HISTORY: 63 years-old Female with fall. Acute head and neck trauma status post fall TECHNIQUE: Multiple axial CT images of the head were obtained without contrast. A dose lowering technique was utilized adhering to the principles of ALARA. COMPARISON: CT cervical spine of same day FINDINGS: No acute intracranial hemorrhage, midline shift, intracranial mass, hydrocephalus, territorial ischemia or abnormal extra-axial collection. Mild nonspecific white matter hypodensities, possibly representing chronic microvascular ischemic disease. The calvarium is intact. Mild mucosal thickening of the paranasal sinuses. Mastoid air cells are clear. IMPRESSION: No acute intracranial abnormality or calvarial fracture. ACT 112: Negative or not required by law. The above report was generated using voice recognition software. It may contain grammatical, syntax or spelling errors. Electronically signed by: Kp Ramires M.D. 09/25/2023 7:26 PM Hip/Pelvis X-Ray 09/25/23 17:53 XR hip RT 2V w pelvis HISTORY: 63 years-old Female fall acute right hip pain status post fall COMPARISON: CT abdomen and pelvis 06/16/2023 TECHNIQUE: AP view of the pelvis with 2 views of the right hip FINDINGS: Mild osteoarthritis of the hips. There is an acute, comminuted, impacted and displaced intratrochanteric right femoral fracture. Greater trochanteric fracture displacement measures up to 2 cm laterally. No dislocation or additional fracture. Lateral soft tissue swelling. IMPRESSION: Acute, comminuted, impacted and displaced intertrochanteric right femoral fracture. ACT 112: Negative or not required by law. The above report was generated using voice recognition software. It may contain grammatical, syntax or spelling errors. Electronically signed by: Kp Ramires M.D. 09/25/2023 6:50 PM Chest X-Ray 09/25/23 17:54 XR chest 1V portable HISTORY: 63 years-old Female fall acute chest trauma status post fall COMPARISON: CT 05/04/2023 TECHNIQUE: AP view of the chest FINDINGS: Cardiomediastinal and hilar silhouettes are within normal limits. No pneumothorax, pleural effusion or airspace consolidation. Metallic density spring projects over the right neck. Emphysema with chronic interstitial coarsening. Degenerative changes of the shoulders and spine. IMPRESSION: Emphysema without acute process of the chest. ACT 112: Negative or not required by law. The above report was generated using voice recognition software. It may contain grammatical, syntax or spelling errors. Electronically signed by: Kp Ramires M.D. 09/25/2023 6:42 PM Hip X-Ray 09/26/23 00:00 FL hip RT 2-3V CLINICAL HISTORY: RT HIP ORIF COVID +acute fracture of the right femur COMPARISON STUDY: Radiographs from 09/25/2023 FLUOROSCOPY TIME: 84.8 seconds FLUOROSCOPY IMAGES: 6 EXPOSURE DOSE: 20.73 mGy FINDINGS: Status post placement of an intertrochanteric nail with medullary lawson fixating the acute intertrochanteric fracture. There is improved alignment. Expected postoperative soft tissue swelling with deep tissue air. IMPRESSION: Fluoroscopic assistance as above. ACT 112: Negative or not required by law. Electronically signed by: Kp Ramires M.D. 09/26/2023 1:25 PM Hip X-Ray 09/26/23 14:10 XR hip RT min 2V HISTORY: 63 years-old Female Post-Operative implant position acute fracture of the right hip COMPARISON: 09/25/2023 TECHNIQUE: 2 views of the right hip FINDINGS: Status post placement of an intertrochanteric nail with medullary lawson fixating the acute intertrochanteric fracture. There is improved alignment with mild persistent medial displacement of a few millimeters. Lateral skin lio. Expected postoperative soft tissue swelling with deep tissue air. IMPRESSION: Improved alignment of the acute intertrochanteric fracture status post ORIF. ACT 112: Negative or not required by law. The above report was generated using voice recognition software. It may contain grammatical, syntax or spelling errors. Electronically signed by: Kp Ramires M.D. 09/26/2023 3:36 PM Chest X-Ray 09/28/23 08:42 XR chest 1V portable HISTORY: 63 years-old Female f/u hypoxia acute shortness of breath with hypoxia COMPARISON: 09/25/2023 TECHNIQUE: AP view of the chest FINDINGS: Cardiomediastinal and hilar silhouettes are within normal limits. Emphysema with chronic interstitial coarsening. No pneumothorax, pleural effusion or airspace consolidation. Spondylotic spurring of the spine. IMPRESSION: Emphysema without acute process. ACT 112: Negative or not required by law. The above report was generated using voice recognition software. It may contain grammatical, syntax or spelling errors. Electronically signed by: Kp Ramires M.D. 09/28/2023 12:34 PM Hospital Course (1) Closed fracture of right hip: Age-related osteoporosis with current pathologic fracture, right femur 63yo female with ground level fall x 2 resulting in acute comminuted, impacted and displaced intertrochanteric right femoral fracture. Orthopedics consulted s/p Right intertrochanteric hip nail with Dr Watson on 09/26 Vit D 33, PO supplementation started and continued at dc No leukocytosis, afebrile Hgb 13.3--> 8.7 --> 8.9 and stable. Venofer IV x 2 while inaptient -- can continue IV vs PO at [facility] w/ aggressive bowel regimen Pain control - increased oxycodone to 10mg as needed. can continue 5-10mg as needed, tylenol 1gm q8h for pain control at dc Of note, medical marijuana use for arthritis/sleep at home. Suspect culprit for more difficult pain control initially, appears MUCH more comfortable on exam 09/30 Continue bowel regimen at discharge --> patient did have small BM 2, larger loose BM overnight 8 w improvement and discussed would continue while on pain control. +BS on exam DVT proph: ASA 81mg BID Outpatient f/u ortho in 2 weeks. PT/OT with recs for rehab, arrangements made for [facility] at 1500 Of note, patient w/ hx of gastric bypass however no abdominal epigastric discomfort or increased reflux but if occurs would empirically increase her PPI to BID (2) Syncope: Patient reported two syncopal events day of arrival, some ongoing dizziness and vertigo. Fall precautions maintained. Meclizine prn which she hasn't needed. Suspect 2nd to COVID, 97% on RA and did have some hypoxia but suspected from opiates/narcotics and CXR negative and titrated to room air. Repeat CXR negative for acute process, afebrile, no cough No further dizziness reported, no murmur on exam (3) COVID-19: Patient developed Covid-19 symptoms to 09/19/23 and tested POSITIVE on 09/21/23. She reports that her symptoms are overall improving. No fever or SOB. PCR is POSITIVE2/3 Isolation precautions Dropped sats w/ opiates -- decreased use and repeat CXR NEGATIVE for acute process, notes emphysema in patient w/ hx of smoking No indication for Remdesivir or Dexamethasone treatment NOW ON ROOM AIR -- continued incentive spirometer. Lungs clear, no SOB reported and 97% prior to discharge (4) Acute blood loss anemia: Acute blood loss anemia As above, hgb dropped to 8.7, improved to 9.1 on AM labs. Consideration for IV Venofer *Of note, hx gastric bypass. On protonix once daily, hgb stable but could consider increasing if needed. (5) H/O gastric bypass: Noted hx, continues on PPI once daily while on ASA 81mg BID for DVT proph. No increased reflux reported but should monitor for any need for PPI to be increased Plan discharging to [facility] for continued rehab Total Time Total Time Spent Total Time Spent (In Minutes): 45 Discharge Plan Discharge Items Patient Disposition: Transfer Inpatient Rehab Fac Reason For Visit: RIGHT HIP FRACTURE Discharge Diagnosis: Right hip fracture, COVID-19 Goals: You have been hospitalized for an urgent problem which required surgery. During your stay at [facility], we have made an effort to correct the problem that brought you to the hospital while keeping you as comfortable as possible. Surgery and medications were used to bring your condition under control and your discharge instructions will include directions for any medications you should take after leaving the hospital. Please make sure to follow the advice of your surgeon regarding follow up with the surgeon and with your primary care provider. Activity: As commented below Weightbearing: Right toe touch Non-emergency contact: Primary Care Provider and Surgeon Call non-emergency contact if: you have any medication questions, your symptoms worsen and your pain is not controlled Follow-up/Referrals: Jan Christianson MD [Primary Care Provider] - Reggie Watson MD [Physician] - (Call to schedule follow-up 10-14 days after surgery.) Diet: Regular Addtl Attending Provider Instructions: You have been hospitalized for a hip fracture and COVID. You chest imaging was negative for pneumonia and you have been weaned and stable on room air. Your hip was repaired by Dr Watson and you are continued on aspirin twice a day for prevention of blood clot. Given your history of gastric bypass, if you have any reflux/epigastric discomfort you likely would benefit from having your protonix increased to twice a day. Please monitor and alert medical provider at [facility] if these symptoms occur. You can continue Tylenol and oxycodone 5-10 mg as needed for pain. Please continue a bowel regimen to prevent constipation while on pain medications. Please follow up with orthopedics in 2 weeks from surgery to monitor how you are doing. Please follow up with primary care in the next 7-10 days. Please return to the ER with any increased/uncontrolled pain, redness/drainage from your incision, chest pain, shortness of breath or for any other symptoms concerning for you. It has been a pleasure being a part of the medical team providing for you while you have been in the hospital. Take care! Addtl Inspector Soldering Provider Instructions: [facility] DISCHARGE INSTRUCTIONS: HIP FRACTURE SELF CARE INSTRUCTIONS: A. You are to ambulate with a walker or crutches for approximately 6 weeks. B. You are TOE TOUCH WEIGHT BEARING on your operative lower extremity for at least 6 weeks. C. Wear low heeled shoes with non-slip soles D. Be sure that your floors are free of things that could trip you throw rugs, electrical cords, and small objects. Avoid wet and waxed floors, especially with crutches/walker/cane. E. Try to walk several times a day with rest periods between. F. You may shower 48 hours after surgery and get the incision area wet, but DO NOT soak or submerge incision area in water. (No baths, swimming pools, hot tubs) G. You may have a large, band-aid like dressing over your incision (Aquacel). This will remain on your incision for 7 days, and then can be removed. You CAN shower with this on. If incision is leaking through the dressing, please call the office . H. Do NOT apply soap or any ointment/lotions directly over incision. I. You may use ice as needed to operative site. SPECIAL CARE INSTRUCTIONS: VERY IMPORTANT TO READ AND REVIEW A. You may be at risk for phlebitis or blood clots. a. Wear surgical stockings (JULIO hose) for 2 weeks after surgery to improve circulation and reduce swelling. b. Take ASPIRIN 81 mg twice daily for 4 weeks or as directed. This is your blood thinner. c. If you are on Coumadin- you will have daily/weekly blood work to monitor your levels. This will be done by either your family physician/service dog trainer (if you are on Coumadin chronically) versus your orthopedic surgeon. Expect a phone call the day of or the day after your blood work is drawn to adjust your dose accordingly. B. There are a few signs you need to watch for after you are home. Call [facility] at [phone] if you experience any of the following: a. If you have a temperature of 101 degrees or higher. b. Sudden increase in pain in your hip not relieved by rest or pain medication. c. Any fluid or drainage from the incision; redness of the incision. d. Shortness of breath or chest pain. B. Please call [facility] at [phone] if you have any questions or concerns about your operation or recovery. C. Call your physician if: a. Temperature is greater than 101 degrees (F). b. Pain is not relieved by prescribed pain medications. c. Increase drainage or redness from incision. d. Unanswered questions or concerns. D. Pain Medication: a. You will be prescribed pain medication upon discharge that should last till your first post-operative appointment. b. If you experience nausea and/or skin rash, discontinue this medication and contact our office for an alternative medication. c. Caution- narcotic pain medication can cause constipation. FOLLOW UP VISIT: Please call [facility] at [phone] to schedule a follow u p appointment 10-14 days from the date of your surgery date. Pending Studies at Discharge: No Stand-Alone Forms: My [facility] Skilled Items Patient informed of condition?: Yes DNR: No Discharge Level of Care: Acute rehab Communicable Disease: No Discharge Prognosis: Stable Lines: None Urinary Catheter: No Medications and DC Order Prescriptions: New aspirin 81 mg Tablet,Delayed Release (Dr/Ec) 81 mg PO BID 42 Days Qty: 84 0RF acetaminophen [Tylenol Extra Strength] 500 mg Tablet 1,000 mg PO Q8H Qty: 30 0RF bisacodyl 10 mg Suppository 10 mg WA DAILY PRN (Reason: constipation) Qty: 7 0RF docusate sodium 100 mg Capsule 100 mg PO BID Qty: 30 0RF oxycodone 5 mg Tablet 10 mg PO Q4H PRN (Reason: pain) Qty: 14 0RF cholecalciferol (vitamin D3) 125 mcg (5,000 unit) Tablet 125 mcg PO QAM Qty: 30 0RF Continued pantoprazole 40 mg tablet,delayed release (DR/EC) 40 mg PO QAM Qty: 90 3RF tramadol 50 mg tablet 50 mg PO DAILY PRN (Reason: Pain) Qty: 30 0RF hydrocodone-homatropine [Hycodan] 5-1.5 mg/5 mL (5 mL) syrup 5 ml PO Q6H PRN (Reason: cough) Qty: 200 0RF cyanocobalamin (vitamin B-12) 1,000 mcg/mL Solution 1,000 mcg IM MONTHLY calcium carbonate-vitamin D3 [Calcium 600 + D(3)] 600 mg(1,500mg) -400 unit Tablet 2 tab PO QAM Flintstones Complete Tablet,Chewable 2 tab PO QAM Discontinued Paxlovid 300 mg (150 mg x 2)-100 mg tablets,dose pack See Rx Instructions PO .COMPLEX Qty: 30 0RF Rx Instructions: PER PT "NEVER TOOK THIS MED". take TWO 150 mg tablets of nirmatrelvir with ONE 100 mg tablet of ritonavir twice daily for 5 days PO Admission Data Admit Date/Time: 09/25/23 20:01 Attending Provider: Giovany Marte Admit Provider: Brigida Rosario Primary Care Provider: Jan Christianson V. Other Providers: Brigida Rosario; Reggie Watson; Adina Serrano; Glory Neal; Virginia Cotto; Eli Lawson; Omar Tam; Bradley Lucero; Jimi Lu; Luis Montoya; Lyly Montoya; Gaston Ireland; Maggi Smallwood; Zeferino López; Silvano Collins; Breezy Rodgers; Juarez Quesada; Olive Farrell; Kal Rader; Anu Rader; Jewel Osborne; Chantel Parkinson; Nadeem Trujillo; Valerie Patel; Martha Cartagena; Turner Lujan; Brigida Weiner; Mouna Rizo; Lakeisha Champagne; Joseline Beltran A; Collins Beltran V; Hans Schaefer; Glory Worthy; Kapil Walker; Estee Hall; Collins Moody; J Carlos Farrell; Abraham Silva; Rosey Lane; Mari Daniel; Collins Weston; Juan Diego Miller; Elvira Loredo; Igor Romo; Feilcitas Padilla; Yojana Henson; Nasim Santos; Tito Quesada; Hailey Izaguirre; Karen Mayberry; Jamar Grayson; Reggie Hanson; Omar Escoto Jr; Cynthia Ramírez; Mago Cox; Julee High; Turner Mathew; Luis Carreno; Viviana Kovacs; Mago Bustillos; Christiano Brown; Miguel Frey; Gustabo Skelton; Bo Hannon; Austin Torres; Christian English; Dimple Cook; Esha Wilder; [facility]; [facility]; [facility] Supervising Physician Co-Signing Physician Notes The patient was not seen by me. The chart was reviewed. Case discussed with THI Alonzo. Agree with assessment and plan. The patient is medically stable for discharge home today, September 30 Coding Level of Care Code 39581 INP/OBS DISCH >30 MIN Diagnoses Closed fracture of right hip S72.001A Encounter type: initial encounter Syncope R55 Syncope type: unspecified COVID-19 U07.1 Acute blood loss anemia D62 H/O gastric bypass Z98.84
[2023-09-30] MEDS: oxyCODONE HCL IR 5 MG TAB (IMMEDIATE RELEASE) PO PRN (11:33)
== END 2023-09-30 15:27 | DRG 480 ==
LOC: ED 17:46 → 3W 20:01 → SUATTDRO 20:01 → 3W 22:41